=== PATIENT | female | born 1945 | race Caucasian/White ===

== ENCOUNTER 2016-11-26 11:26 | Inpatient (IN) | payer MEDICARE ==
[2016-11-26] MEDS ORDERED: SODIUM CHLORIDE 0.9% 1,000 ML IV STA (13:25)
[2016-11-26] MEDS ORDERED: ONDANSETRON 4 MG/2 ML VIAL IVP STA ×2 (13:25→14:49)
[2016-11-26] MEDS ORDERED: HYDROmorphone 1 MG/ML 1 ML SYRINGE IVP STA (13:30)
[2016-11-26 14:08] LABS: Glucose 109 mg/dL (74-99)
[2016-11-26 14:09] LABS: ALT 22 U/L (9-52); AST 60 U/L (14-36); Alkaline Phosphatase 349 U/L (38-126); Amylase 33 U/L (30-110); Anion Gap 10 mmol/L; Blood Urea Nitrogen 11 mg/dL (7-17); Calcium 10.1 mg/dL (8.4-10.2); Carbon Dioxide 24 mmol/L (22-30); Chloride 100 mmol/L (98-107); Non-African American GFR(MDRD) >60 (>60 ml/min/1.73 sqM); Potassium 4.1 mmol/L (3.5-5.1); Sodium 134 mmol/L (137-145); Total Bilirubin 0.7 mg/dL (0.2-1.3); Total Protein 7.3 g/dL (6.3-8.2)
[2016-11-26 14:12] LABS: Basophils # (A) 0.1 k/uL (0-0.2); Basophils % (A) 1 %; CH 21.2; CHCM 27.6; Eosinophils # (A) 0.2 k/uL (0-0.7); Eosinophils % (A) 2 %; HCT 24.7 % (34.0-46.0); HDW 4.17; Hypochromasia Marked; Luc # (Auto) 0.35; Luc % (Auto) 3; Lymphocytes # (A) 0.7 k/uL (1.0-4.8); Lymphocytes % (A) 6 %; MCH 21.7 pg (25.0-35.0); MCHC 28.3 g/dL (31.0-37.0); MCV 76.8 fL (80.0-100.0); Mean Platelet Volume 7.6; Microcytosis Slight; Monocytes # (A) 0.9 k/uL (0-1.0); Monocytes % (A) 8 %; Neutrophils # (A) 8.7 k/uL (1.3-7.7); Neutrophils % (A) 80 %; Poikilocytosis Moderate; RBC 3.21 m/uL (3.80-5.40); RDW 15.5 % (11.5-15.5); WBC 10.9 k/uL (3.8-10.6); WBC (Perox) 10.44
--- NOTE | 2016-11-26 14:15 | XR ---
EXAMINATION TYPE: XR abdomen 2V DATE OF EXAM: 11/26/2016 2:10 PM COMPARISON: NONE HISTORY: Pain TECHNIQUE: Single supine KUB image of the abdomen is obtained FINDINGS: Small bowel demonstrates no evidence for dilatation or air fluid levels. Gas and fecal material is seen in non-distended colon. No convincing evidence for pneumoperitoneum. No unusual calcifications. The lung bases are clear. Small fixed hiatal hernia. The osseous structures are intact. IMPRESSION: 1. Overall nonobstructive bowel gas pattern.
--- NOTE | 2016-11-26 14:17 | XR ---
EXAM TYPE: LUMBAR SPINE X RAY SERIES COMPARISON: NONE HISTORY: Chronic back pain TECHNIQUE: 3 views are submitted. FINDINGS: Alignment is anatomic. The pedicles are intact. The transverse processes are intact. There is no s pondylolysis or spondylolisthesis. Curvature of the spine with compression deformity of L3. Patholog ic fracture suggested. Grade 1 anterolisthesis L4 and L5 with severe degenerative disc disease and fa cet arthropathy. Moderate degenerative disc disease remaining levels. Report called to emergency room . IMPRESSION: 1. Mild endplate compression fracture L3 which has a abnormal appearance suggestive of a pathologic f racture. Recommend follow-up MRI or CT scan. 2. Severe degenerative disc disease and facet arthropathy with grade 1 anterolisthesis L4 on L5.
[2016-11-26 14:33] LABS: Manual Review Performed
[2016-11-26 14:34] LABS: Polychromasia Present; Stomatocytes Present
--- NOTE | 2016-11-26 14:57 | ED ---
General Adult HPI - General Chief complaint: Back Pain/Injury Stated complaint: back pain,dehydration Time Seen by Provider: 11/26/16 13:15 Source: patient, RN notes reviewed Mode of arrival: wheelchair Limitations: physical limitation - History of Present Illness Initial comments: 71-year-old female presents to the emergency department with a chief complaint of feeling weak. Patient states she's been weak for the last 4 so. Patient states this pain for the past month or so. Patient states that she's not been drinking as much because she has a hard time getting up and moving around with this. Patient states that she's been to the chiropractor but he does not need making her symptoms better. He states that she fell today and she hit her head. Patient states that she did not lose consciousness. Patient states she was concerned due to her continued weakness and not feeling well so she thought that she should be evaluated. Patient admits to history of anemia with iron everything seemed to be okay. Patient denies any blood in stool. Patient denies any recent fever, chills, shortness of breath, chest pain, back pain, abdominal pain, nausea vomiting, numbness or tingling, dysuria or hematuria, constipation or diarrhea, visual changes, or any other current symptoms. - Related Data Home Medications Medication Instructions Recorded Confirmed ALPRAZolam [Xanax] 0.5 mg PO TID PRN 11/26/16 11/26/16 Ibuprofen [Motrin] 800 mg PO TID PRN 11/26/16 11/26/16 Nadolol [Corgard] 40 mg PO DAILY 11/26/16 11/26/16 Omeprazole [PriLOSEC] 20 mg PO DAILY 11/26/16 11/26/16 Triamterene/Hydrochlorothiazid 1 cap PO DAILY 11/26/16 11/26/16 [Dyazide 37.5-25 Capsule] Allergies Allergy/AdvReac Type Severity Reaction Status Date / Time albuterol AdvReac Rapid Verified 11/26/16 14:33 Heart Rate prochlorperazine AdvReac Rapid Verified 11/26/16 14:33 [From Compazine] Heart Rate Review of Systems ROS Statement: Those systems with pertinent positive or pertinent negative responses have been documented in the HPI. ROS Other: All systems not noted in ROS Statement are negative. Past Medical History Past Medical History: Hypertension Additional Past Medical History / Comment(s): sciatica, back pain History of Any Multi-Drug Resistant Organisms: None Reported Past Surgical History: Adenoidectomy, Appendectomy, Section, Tonsillectomy Past Psychological History: No Psychological Hx Reported Smoking Status: Never smoker Past Alcohol Use History: Rare Past Drug Use History: None Reported General Exam - General Exam Comments Initial Comments: General: The patient is awake and alert, in no distress, and does not appear acutely ill. Eye: Pupils are equal, round and reactive to light, extra-ocular movements are intact; there is normal conjunctiva bilaterally. No signs of icterus. Ears, nose, mouth and throat: There are moist mucous membranes and no oral lesions. Neck: The neck is supple, there is no tenderness. Cardiovascular: There is a regular rate and rhythm. No murmur, rub or gallop is appreciated. Respiratory: Lungs are clear to auscultation, respirations are non-labored, breath sounds are equal. No wheezes, stridor, rales, or rhonchi. Gastrointestinal: Soft, non-distended, nontender abdomen without masses or organomegaly noted. There is no rebound or guarding present. No CVA tenderness. Bowel sounds are unremarkable. Back: There is tenderness to palpation in the midline of the upper lumbar spine. There is no obvious deformity. No rashes noted. Musculoskeletal: Normal ROM, no tenderness, There is no pedal edema. There is no calf tenderness or swelling. Sensation intact. Pulses equal bilaterally 2+. Neurological: CN II-XII intact, There are no obvious motor or sensory deficits. Coordination appears grossly intact. Speech is normal. Skin: Skin is warm and dry and no rashes or lesions are noted. Psychiatric: Cooperative, appropriate mood & affect, normal judgment. Limitations: physical limitation Course Vital Signs 11/26/16 11/26/16 11:30 14:57 Temperature 98.2 F Pulse Rate 79 75 Respiratory 20 18 Rate Blood Pressure 128/63 139/75 O2 Sat by Pulse 98 97 Oximetry Medical Decision Making - Medical Decision Making 71-year-old female presents for back pain and weakness. At this time here in the emergency room the patient is found to be anemic with a hemoglobin of 7 and is having lightheadedness and weakness. We did order transfusion for the patient. At this time x-ray was done on the patient's back but also does show an L3 fracture that is most likely pathologic the patient is also found to have lesions on the liver. At this time we will admit the patient for further evaluation. She has had some nausea vomiting here. We did send an occult blood at this time that we are pending results. This time she will be admitted to the floor for further evaluation. - Lab Data Result diagrams: 11/26/16 13:46 11/26/16 13:46 Lab Results 11/26/16 11/26/16 11/26/16 Range/Units 13:46 13:46 14:20 WBC 10.9 H (3.8-10.6) k/uL RBC 3.21 L (3.80-5.40) m/uL Hgb 7.0 L* (11.4-16.0) gm/dL Hct 24.7 L (34.0-46.0) % MCV 76.8 L (80.0-100.0) fL MCH 21.7 L (25.0-35.0) pg MCHC 28.3 L (31.0-37.0) g/dL RDW 15.5 (11.5-15.5) % Plt Count 500 H (150-450) k/uL Neutrophils % 80 % Lymphocytes % 6 % Monocytes % 8 % Eosinophils % 2 % Basophils % 1 % Neutrophils # 8.7 H (1.3-7.7) k/uL Lymphocytes # 0.7 L (1.0-4.8) k/uL Monocytes # 0.9 (0-1.0) k/uL Eosinophils # 0.2 (0-0.7) k/uL Basophils # 0.1 (0-0.2) k/uL Manual Slide Review Performed Polychromasia Present Hypochromasia Marked Poikilocytosis Moderate Microcytosis Slight Stomatocytes Present Sodium 134 L (137-145) mmol/L Potassium 4.1 (3.5-5.1) mmol/L Chloride 100 (98-107) mmol/L Carbon Dioxide 24 (22-30) mmol/L Anion Gap 10 mmol/L BUN 11 (7-17) mg/dL Creatinine 0.49 L (0.52-1.04) mg/dL Est GFR (MDRD) Af Amer >60 (>60 ml/min/1.73 sqM) Est GFR (MDRD) Non-Af >60 (>60 ml/min/1.73 sqM) Glucose 109 H (74-99) mg/dL Calcium 10.1 (8.4-10.2) mg/dL Total Bilirubin 0.7 (0.2-1.3) mg/dL AST 60 H (14-36) U/L ALT 22 (9-52) U/L Alkaline Phosphatase 349 H (38-126) U/L Total Protein 7.3 (6.3-8.2) g/dL Albumin 4.0 (3.5-5.0) g/dL Amylase 33 (30-110) U/L Lipase 31 (23-300) U/L Blood Type O Negative Blood Type Recheck No Antibody Screen NEGATIVE Crossmatch See Detail Spec Expiration Date 11/29/2016 - 2320 - Radiology Data Radiology results: report reviewed, image reviewed Disposition Clinical Impression: Hyponatremia, Anemia, L3 vertebral fracture, Hepatic lesion, Weakness, Nausea & vomiting, Lytic bone lesions on xray Disposition: ADMITTED IP TO THIS [facility] Condition: Stable Referrals: Anthony Rodriguez MD [Primary Care Provider] - 1-2 days Time of Disposition: 15:57 Decision Date: 11/26/16 Decision Time: 15:57
--- NOTE | 2016-11-26 15:33 | CT ---
EXAMINATION TYPE: CT brain daily page con DATE OF EXAM: 11/26/2016 3:21 PM COMPARISON: NONE HISTORY: SANDOVAL and neck pain after fall injury. CT DLP: [address] of the brain was performed. The ventricles, basal cisterns and sulci overlying the cerebral convexities demonstrate mild enlargem ent. There is no evidence for intracranial hemorrhage or sulcal effacement. There is decreased attenuatio n about the periventricular white matter and deep white matter of both cerebral hemispheres, compatib le with chronic small vessel ischemia. No mass effects are seen. If symptoms persist consider MRI. Osseous calvarium is intact. IMPRESSION: 1. Age related atrophic and chronic small vessel ischemic change without acute intracranial process seen at this time. CT Cervical Spine: Unenhanced CT of the cervical spine was performed with bone and soft tissue window settings submitted . Coronal and sagittal reconstruction is obtained. There is normal alignment and prevertebral soft tissues. No evidence for acute cervical fracture . Moderate to severe Scattered degenerative disc disease and spondylosis. Lytic lesion involving the ri ght transverse process of C2. Biapical scarring. IMPRESSION: 1. No evidence for acute fracture or subluxation of the cervical spine. 2. Lytic lesion involving the right transverse process of C2. Bone scan correlation advised.
--- NOTE | 2016-11-26 15:44 | CT ---
EXAMINATION TYPE: CT lumbar spine wo con DATE OF EXAM: 11/26/2016 3:21 PM COMPARISON: NONE HISTORY: Lower back pain after fall injury. CT DLP: 956 mGycm CONTRAST: Unenhanced CT of the lumbar spine is performed. Unenhanced CT of the lumbar spine was performed. Bone and soft tissue window settings are submitted as well as coronal and sagittal reconstructions. There are innumerable hepatic metastatic lesions noted. L1-L2: Heterogeneity is noted of the L1 vertebral segment. Underlying developing lesion is difficult to exclude. Vacuum disc noted with posterior disc bulge. No herniation or stenosis. No evidence for fracture. L2-L3: No fracture seen. Vacuum disc noted. Posterior disc bulge without central stenosis. L3-L4: Pathologic compression fracture with loss of height superior endplate. There is epidural soft tissue measuring 4.4 mm. No bony retropulsion at this time. There is also paraspinal soft tissue whic h may in part reflect hematoma or an additional lesion. L4-L5: Severe vacuum disc change. Grade 1 anterolisthesis L4 and L5 measuring 7.7 mm . There is a mo derate central stenosis. Disc bulging seen. No fracture identified. L5-S1: Vacuum discs. Posterior disc bulge. No herniation or central stenosis. No obvious lesions seen . Nodular thickening left adrenal gland. Sacral Tarlov cyst. IMPRESSION: 1. Metastatic disease to the liver. 2. pathologic L3 compression fracture with epidural soft tissue as well as paraspinal soft tissue. H eterogeneity of L1 may reflect additional lesion.
[2016-11-26] MEDS ORDERED: METOCLOPRAMIDE 5 MG/ML 2 ML VIAL IVP STA (15:54)
[2016-11-26] MEDS ORDERED: IBUPROFEN 400 MG TAB PO PRN (15:57)
[2016-11-26] MEDS ORDERED: MAGNESIUM HYDROXIDE 2,400 MG/10 ML CUP PO PRN (15:57)
[2016-11-26] MEDS ORDERED: NALOXONE 0.4 MG/ML 1 ML VIAL IV PRN (15:57)
[2016-11-26] MEDS ORDERED: HYDROcodone/APAP 5-325MG 1 EACH TAB PO PRN (15:57)
[2016-11-26 16:14] LABS: INR 1.1 (<1.1); Partial Thromboplastin Time 23.4 sec (22.0-30.0); Prothrombin Time 11.3 sec (9.0-12.0)
[2016-11-26] MEDS: SODIUM CHLORIDE 0.9% 1,000 ML IV SCH (19:40)
[2016-11-26] MEDS: FAMOTIDINE 20 MG TAB PO SCH (21:33)
[2016-11-26] MEDS: ACETAMINOPHEN TAB 325 MG TAB PO PRN (22:16)
[2016-11-27] MEDS: ALPRAZolam 0.5 MG TAB PO PRN ×2 (00:51→12:23)
[2016-11-27] MEDS: SODIUM CHLORIDE 0.9% 1,000 ML IV SCH ×3 (02:39→17:03)
[2016-11-27] MEDS ORDERED: HYDROmorphone 1 MG/ML 1 ML SYRINGE IVP PRN (06:03)
[2016-11-27 07:30] LABS: Basophils % (A) 0 %; CH 21.9; Eosinophils # (A) 0.1 k/uL (0-0.7); Eosinophils % (A) 1 %; HCT 23.5 % (34.0-46.0); HDW 4.56; Hypochromasia Marked; Luc # (Auto) 0.25; Luc % (Auto) 3; Lymphocytes # (A) 0.5 k/uL (1.0-4.8); Lymphocytes % (A) 6 %; MCH 22.2 pg (25.0-35.0); MCHC 28.3 g/dL (31.0-37.0); MCV 78.5 fL (80.0-100.0); Mean Platelet Volume 7.4; Monocytes # (A) 0.8 k/uL (0-1.0); Monocytes % (A) 9 %; Neutrophils # (A) 7.3 k/uL (1.3-7.7); Neutrophils % (A) 82 %; Poikilocytosis Moderate; RBC 2.99 m/uL (3.80-5.40); RDW 15.5 % (11.5-15.5); WBC 8.9 k/uL (3.8-10.6); WBC (Perox) 9.27
[2016-11-27 07:38] LABS: HGB 6.6 gm/dL (11.4-16.0)
[2016-11-27 07:48] LABS: ALT 19 U/L (9-52); AST 49 U/L (14-36); Alkaline Phosphatase 276 U/L (38-126); Anion Gap 8 mmol/L; Blood Urea Nitrogen 7 mg/dL (7-17); Calcium 9.3 mg/dL (8.4-10.2); Carbon Dioxide 24 mmol/L (22-30); Chloride 106 mmol/L (98-107); Glucose 92 mg/dL (74-99); Non-African American GFR(MDRD) >60 (>60 ml/min/1.73 sqM); Potassium 3.7 mmol/L (3.5-5.1); Sodium 138 mmol/L (137-145); Total Bilirubin 0.7 mg/dL (0.2-1.3)
[2016-11-27] MEDS: TRIAMTERENE-HCTZ 37.5-25MG 1 EACH CAP PO SCH (08:43)
[2016-11-27] MEDS: NADOLOL 20 MG TAB PO SCH (08:43)
[2016-11-27] MEDS: PANTOPRAZOLE 40 MG TABLET PO SCH (08:43)
[2016-11-27] MEDS: FAMOTIDINE 20 MG TAB PO SCH (08:43)
[2016-11-27] MEDS: ONDANSETRON 4 MG/2 ML VIAL IVP PRN ×2 (08:49→15:03)
[2016-11-27] MEDS ORDERED: RX INFO: IV CONTRAST WAS GIVEN 1 EACH MISC MISCELLANE PRN (10:42)
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
[2016-11-27 11:22] LABS: Basophils % (A) 0 %; CH 22.1; CHCM 28.4; Eosinophils % (A) 0 %; HCT 24.7 % (34.0-46.0); HDW 4.69; HGB 7.1 gm/dL (11.4-16.0); Hypochromasia Marked; Luc % (Auto) 2; Lymphocytes # (A) 0.4 k/uL (1.0-4.8); Lymphocytes % (A) 4 %; MCH 22.5 pg (25.0-35.0); MCHC 28.8 g/dL (31.0-37.0); MCV 78.1 fL (80.0-100.0); Mean Platelet Volume 6.4; Monocytes # (A) 0.6 k/uL (0-1.0); Monocytes % (A) 7 %; Neutrophils # (A) 8.3 k/uL (1.3-7.7); Neutrophils % (A) 86 %; Poikilocytosis Marked; RBC 3.17 m/uL (3.80-5.40); RDW 15.3 % (11.5-15.5); WBC 9.6 k/uL (3.8-10.6); WBC (Perox) 10.21
[2016-11-27] MEDS: ACETAMINOPHEN TAB 325 MG TAB PO PRN (11:54)
[2016-11-27 11:55] LABS: % Iron Saturation 4.4 % (20-50)
[2016-11-27] MEDS ORDERED: FUROSEMIDE 10 MG/ML 2 ML VIAL IV ONE (14:23)
[2016-11-27] MEDS: IOHEXOL 350 MG/ML 25 ML BOTTLE (ORAL USE) PO PRN ×2 (14:55→16:23)
[2016-11-27] MEDS: DEXAMETHASONE SOD PHOSPHATE 4 MG/ML 1 ML VIAL IV SCH (15:03)
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
[2016-11-27] MEDS ORDERED: LORazepam 2 MG/ML SYRINGE IV STA (17:14)
[2016-11-27] MEDS ORDERED: LORazepam 2 MG/ML SYRINGE ONE (17:16)
--- NOTE | 2016-11-27 17:56 | CT ---
EXAMINATION TYPE: CT ChestAbdPelvis w con DATE OF EXAM: 11/27/2016 5:29 PM COMPARISON: NONE HISTORY: Generalized abdominal and back pain CT DLP: 1754.8 mGycm Automated exposure control for dose reduction was used. CONTRAST: CT scan of the chest, abdomen and pelvis is performed with Oral Contrast and with IV Contrast, patien t injected with 100 mL of Omnipaque 300. FINDINGS: The lungs are clear of infiltrate. There are small bilateral pleural effusions.. There is a large hia dwain hernia. I see no mediastinal adenopathy. There are no hilar masses. There is no pericardial effus ion. There are numerous hypodense irregular masses in the liver. These measure up to 7 cm. Bile ducts are not dilated. Gallbladder appears normal. I see no pancreatic mass. The spleen appears normal. There is no adrenal mass. Kidneys show satisfactory contrast opacification. There is no hydronephrosi s. There is no retroperitoneal adenopathy. There is no ascites. Bladder distends smoothly. There is r etained fecal material in the rectum. I see no intestinal wall thickening. There are a few diverticul a in the colon. There is no sign of diverticulitis. Appendix is not definitely seen. There are a few cervical lymph nodes that measure up to 1 cm. There is incomplete contrast filling of the tip of the cecum. There is mild compression of the superior endplate of L3 vertebra with patchy sclerosis and lucency. This could relate to tumor. There is mild anterior subluxation of L4 in relation L5. There is epidura l density at the L3 fracture impinging on the spinal canal. There is some wall thickening involving the gastric fundus within the hiatal hernia. IMPRESSION: Extensive abnormal density in the liver consistent with metastatic disease. Small bilater al pleural effusions. Large hiatal hernia. Mild compression fracture of L3 which is probably pathologic and tumor should be considered. Possible mass lesion involving the ileocecal valve and the tip of the cecum. Colonoscopy is recommend ed for further evaluation if clinically indicated. Possible mass lesion with wall thickening involving the posterior gastric fundus within the hiatal he rnia. Endoscopy would be useful for further evaluation if clinically indicated. Degenerative first degree L4-5 spondylolisthesis with moderate lumbar spinal stenosis.
--- NOTE | 2016-11-27 18:25 | MR ---
EXAMINATION TYPE: MR lumbar spine wo/w con DATE OF EXAM: 11/27/2016 COMPARISON: 11/27/2016 CT HISTORY: Abnormal x-ray possible metastasis Contrast: 15 mL MultiHance TECHNIQUE: T1 and T2 axial and sagittal images of the lumbar spine are submitted. FINDINGS: There is abnormal numerous masses within the liver compatible with metastases. Single lesio n within the right kidney is indeterminate. At T11-T12 there is a sagittal disc bulge but no spinal cord contact. Area not included on axial imag es of lumbar spine. At T12-L1 there is diffuse abnormal marrow signal involving T12 compatible with metastases. Abnormal signal seen posteriorly within the spinous processes likely related to T12 compatible with metastases . At L1-2 there is diffuse abnormal signal within the marrow compatible with metastases. No disc hernia tion. Facet arthropathy noted. Neural foramina patent. At L2-3 there is abnormal marrow signal within L2 compatible with metastasis. Facet arthropathy seen. Neural foramina patent. No Canal stenosis. At L3-4 there is there is diffuse abnormal signal involving the vertebral body of L3 extending into t he pedicles. There is a pathologic compression fracture or destructive change of the vertebral body. There is enhancement along the paraspinal line and epidural space. Findings compatible with metastase s. There is mild effacement of the thecal sac and mild canal stenosis. At L4-5 there is a grade 1 anterolisthesis with severe degenerative change. Severe facet arthropathy and ligamentum flavum hypertrophy results in severe canal stenosis and bilateral foraminal encroachme nt. Bony metastases noted. At L5-S1 there is facet arthropathy but no disc herniation or canal stenosis. Neural foramina patent. 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 IMPRESSION: 1. At L3-4 there is there is diffuse abnormal signal involving the vertebral body of L3 extending int o the pedicles. There is a pathologic compression fracture or destructive change of the vertebral bod y. There is enhancement along the paraspinal line and epidural space. Epidural enhancement and signal as well as bilateral paraspinal signal compatible with metastases. There is mild effacement of the t hecal sac and mild canal stenosis. 2. Grade 1 anterolisthesis of L4 and L5 with facet arthropathy and ligamentum flavum hypertrophy resu lts in severe canal stenosis and bilateral foraminal encroachment. 3. Multilevel metastatic disease to the lumbar spine and sacrum. 4. Diffuse hepatic metastases.
[2016-11-27] MEDS: DOCUSATE 100 MG CAP PO SCH (20:51)
[2016-11-27] MEDS: HYDROcodone/APAP 10-325MG 1 EACH TAB PO PRN (20:55)
[2016-11-28] MEDS: DEXAMETHASONE SOD PHOSPHATE 4 MG/ML 1 ML VIAL IV SCH ×4 (00:34→23:55)
[2016-11-28] MEDS: HYDROcodone/APAP 10-325MG 1 EACH TAB PO PRN ×4 (01:20→21:47)
[2016-11-28] MEDS: SODIUM CHLORIDE 0.9% 1,000 ML IV SCH ×2 (03:51→08:47)
[2016-11-28 07:13] LABS: Anisocytosis Slight; Basophils % (A) 0 %; CH 23.3; CHCM 29.4; Eosinophils % (A) 0 %; HCT 28.9 % (34.0-46.0); HDW 5.05; Hypochromasia Marked; Luc % (Auto) 1; Lymphocytes # (A) 0.5 k/uL (1.0-4.8); Lymphocytes % (A) 6 %; MCH 23.5 pg (25.0-35.0); MCHC 29.6 g/dL (31.0-37.0); MCV 79.2 fL (80.0-100.0); Mean Platelet Volume 6.4; Monocytes # (A) 0.4 k/uL (0-1.0); Monocytes % (A) 5 %; Neutrophils # (A) 7.7 k/uL (1.3-7.7); Neutrophils % (A) 88 %; Poikilocytosis Marked; RBC 3.64 m/uL (3.80-5.40); RDW 16.1 % (11.5-15.5); WBC 8.7 k/uL (3.8-10.6); WBC (Perox) 9.68
[2016-11-28 07:32] LABS: HGB 8.6 gm/dL (11.4-16.0)
[2016-11-28 07:51] LABS: ALT 29 U/L (9-52); AST 92 U/L (14-36); Alkaline Phosphatase 301 U/L (38-126); Anion Gap 11 mmol/L; Blood Urea Nitrogen 6 mg/dL (7-17); Calcium 9.6 mg/dL (8.4-10.2); Carbon Dioxide 25 mmol/L (22-30); Chloride 102 mmol/L (98-107); Glucose 116 mg/dL (74-99); Non-African American GFR(MDRD) >60 (>60 ml/min/1.73 sqM); Potassium 3.8 mmol/L (3.5-5.1); Sodium 138 mmol/L (137-145); Total Bilirubin 0.8 mg/dL (0.2-1.3); Total Protein 6.4 g/dL (6.3-8.2)
[2016-11-28] MEDS: PANTOPRAZOLE 40 MG TABLET PO SCH (08:37)
[2016-11-28] MEDS: DOCUSATE 100 MG CAP PO SCH ×2 (08:37→21:23)
[2016-11-28] MEDS: TRIAMTERENE-HCTZ 37.5-25MG 1 EACH CAP PO SCH (08:37)
[2016-11-28] MEDS: NADOLOL 20 MG TAB PO SCH (08:37)
[2016-11-28] MEDS: ALPRAZolam 0.5 MG TAB PO PRN ×3 (08:41→23:54)
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
--- NOTE | 2016-11-28 11:45 | P.PN ---
Subjective Patient is doing fairly well today. Her pain is well-controlled. No event last night. Objective - Vital Signs Vital signs: Vital Signs Temp 98.1 F 11/28/16 07:00 Pulse 75 11/28/16 10:10 Resp 16 11/28/16 09:00 BP 152/72 11/28/16 10:10 Pulse Ox 95 11/28/16 07:00 Intake & Output 11/27/16 11/28/16 11/28/16 18:59 06:59 18:59 Intake Total 3650 Balance 3650 Weight 88.451 kg 88.451 kg Intake: IV 2160 Sodium Chloride 0.9% 1, 2160 000 ml @ 120 mls/hr IV . Q8H20M [facility] Rx#:[id number] Oral 1180 Blood Product 310 Rc As-1 Unit 310 [id number] Other: Voiding Method Toilet Toilet Bedpan # Voids 2 3 - Exam General: The patient is awake and alert, in no distress Eye: there is normal conjunctiva bilaterally. Neck: The neck is supple, there is no JVD. Cardiovascular: Normal S1-S2, no S3-S4, no murmurs. Respiratory: Lungs clear to auscultation bilaterally Gastrointestinal: Abdomen is soft, nontender Musculoskeletal: There is no pedal edema. Neurological:. Speech is normal. Skin: Skin is warm and dry - Labs CBC & Chem 7: 11/28/16 06:46 11/28/16 06:46 Labs: Abnormal Lab Results - Last 24 Hours (Table) 11/26/16 11/27/16 11/27/16 Range/Units 14:20 07:03 11:08 RBC (3.80-5.40) m/uL Hgb (11.4-16.0) gm/dL Hct (34.0-46.0) % MCV (80.0-100.0) fL MCH (25.0-35.0) pg MCHC (31.0-37.0) g/dL RDW (11.5-15.5) % Lymphocytes # (1.0-4.8) k/uL BUN (7-17) mg/dL Creatinine (0.52-1.04) mg/dL Glucose (74-99) mg/dL Iron 14 L (37-170) ug/dL % Saturation 4.4 L (20-50) % AST (14-36) U/L Alkaline Phosphatase (38-126) U/L Albumin (3.5-5.0) g/dL RBC Folate 832 H (280 - 791) ng/mL Crossmatch See Detail 11/28/16 11/28/16 Range/Units 06:46 06:46 RBC 3.64 L (3.80-5.40) m/uL Hgb 8.6 L D (11.4-16.0) gm/dL Hct 28.9 L (34.0-46.0) % MCV 79.2 L (80.0-100.0) fL MCH 23.5 L (25.0-35.0) pg MCHC 29.6 L (31.0-37.0) g/dL RDW 16.1 H (11.5-15.5) % Lymphocytes # 0.5 L (1.0-4.8) k/uL BUN 6 L (7-17) mg/dL Creatinine 0.48 L (0.52-1.04) mg/dL Glucose 116 H (74-99) mg/dL Iron (37-170) ug/dL % Saturation (20-50) % AST 92 H (14-36) U/L Alkaline Phosphatase 301 H (38-126) U/L Albumin 3.3 L (3.5-5.0) g/dL RBC Folate (280 - 791) ng/mL Crossmatch Microbiology - Last 24 Hours (Table) 11/26/16 16:35 Urine Culture - Preliminary Urine,Voided Assessment and Plan Plan: 1. Metastatic disease to the bone of unknown source 2. Acute on chronic back pain involving the cervical and lumbar spine with evidence of pathologic compression fracture of L3 and diffuse metastatic disease to the spine 3. Metastatic liver disease with mild transaminitis 4. Essential hypertension: Blood pressure not well controlled we'll continue to monitor closely 5. Acute on chronic anemia most likely of chronic disease. Patient received 1 unit of blood transfusion. Would monitor CBC daily This is a 71-year-old female who presented to the hospital initially with back pain and was found to have metastatic disease involving the cervical and lumbar spine as well as her liver. Underlying malignancy is unknown. Computed tomography scan of the chest abdomen and pelvis showed no obvious source. Patient is scheduled for CT-guided biopsy of the liver for pathology. She was seen and evaluated by spine surgery and recommending pain control and back brace. She was also seen by oncology. We will continue current regimen otherwise. Appreciate information resource consultant's recommendations.
[2016-11-28] MEDS: HEPARIN SODIUM,PORCINE 5,000 UNIT/ML 1 ML VIAL SQ SCH (21:47)
[2016-11-29] MEDS: HYDROcodone/APAP 10-325MG 1 EACH TAB PO PRN ×6 (02:07→23:48)
[2016-11-29 07:25] LABS: Anisocytosis Slight; Basophils % (A) 0 %; CH 22.9; CHCM 28.7; Eosinophils % (A) 0 %; HCT 30.4 % (34.0-46.0); HDW 4.77; HGB 8.8 gm/dL (11.4-16.0); Hypochromasia Marked; Luc # (Auto) 0.31; Luc % (Auto) 2; Lymphocytes # (A) 0.5 k/uL (1.0-4.8); Lymphocytes % (A) 3 %; MCHC 28.7 g/dL (31.0-37.0); Mean Platelet Volume 7.1; Monocytes # (A) 1.2 k/uL (0-1.0); Monocytes % (A) 8 %; Neutrophils # (A) 12.9 k/uL (1.3-7.7); Neutrophils % (A) 87 %; Poikilocytosis Marked; RBC 3.81 m/uL (3.80-5.40); RDW 16.5 % (11.5-15.5); WBC 14.9 k/uL (3.8-10.6); WBC (Perox) 15.43
[2016-11-29 07:38] LABS: ALT 39 U/L (9-52); AST 119 U/L (14-36); Alkaline Phosphatase 279 U/L (38-126); Anion Gap 8 mmol/L; Blood Urea Nitrogen 11 mg/dL (7-17); Calcium 9.7 mg/dL (8.4-10.2); Carbon Dioxide 28 mmol/L (22-30); Chloride 100 mmol/L (98-107); Glucose 113 mg/dL (74-99); Non-African American GFR(MDRD) >60 (>60 ml/min/1.73 sqM); Potassium 4.3 mmol/L (3.5-5.1); Sodium 136 mmol/L (137-145); Total Bilirubin 0.8 mg/dL (0.2-1.3); Total Protein 6.6 g/dL (6.3-8.2)
[2016-11-29] MEDS: NADOLOL 20 MG TAB PO SCH (08:47)
[2016-11-29] MEDS: DOCUSATE 100 MG CAP PO SCH ×2 (08:47→21:24)
[2016-11-29] MEDS: TRIAMTERENE-HCTZ 37.5-25MG 1 EACH CAP PO SCH (08:47)
[2016-11-29] MEDS: HEPARIN SODIUM,PORCINE 5,000 UNIT/ML 1 ML VIAL SQ SCH ×2 (08:47→21:24)
[2016-11-29] MEDS: DEXAMETHASONE SOD PHOSPHATE 4 MG/ML 1 ML VIAL IV SCH ×3 (08:48→23:50)
[2016-11-29] MEDS: PANTOPRAZOLE 40 MG TABLET PO SCH (08:48)
[2016-11-29] MEDS: ALPRAZolam 0.5 MG TAB PO PRN ×2 (10:47→20:00)
--- NOTE | 2016-11-29 12:04 | P.PN ---
Subjective Principal diagnosis: L3 pathologic compression fracture deformity Patient is a very pleasant 71-year-old female who is seen and examined at bedside for follow-up evaluation for her acute L3 compression fracture deformity. She is seen with her daughter present. She is currently being seen and examined by hematology oncology for further evaluation of multiple liver masses with possible metastatic disease to the lumbar spine. She is scheduled to undergo hepatic biopsy this coming 12/01/2016. Since being seen and examined yesterday, patient states she slept on her left side and since that time she has had some increased low back pain and left lower extremity radiculopathy. She is known to have a spondylolisthesis at L4-5. She has pain that radiates from the left lateral lumbar spine, down the left posterior lateral thigh, over the left knee, and on anterior lower extremity. She states she has had difficulty with this radicular pattern previously. She does admit to some generalized tingling of the bilateral toes that goes up towards her calves. She states she was not previously diagnosed with diabetes that she is aware of. She has remained lying in bed most the time. She was able to stand at the bedside with assistance today. Objective - Vital Signs Vital signs: Vital Signs Temp 98.1 F 11/29/16 07:00 Pulse 69 11/29/16 07:00 Resp 16 11/29/16 07:00 BP 137/65 11/29/16 07:00 Pulse Ox 96 11/29/16 07:00 Intake & Output 11/28/16 11/29/16 11/29/16 18:59 06:59 18:59 Intake Total 600 600 Balance 600 600 Intake: Oral 600 600 Other: Voiding Method Bedpan Bedpan Bedpan # Voids 2 1 - Exam Physical Exam: Patient is awake, alert, and oriented 3 Vital signs stable Good chest excursion with deep inspiration and expiration Abdomen soft nontender No signs or symptoms of DVT; no calf pain Lower extremity strength 5/5 throughout range of motion Extensor hallucis longus, plantarflexion, and dorsiflexion positive sustained bilateral lower extremities Negative straight leg test bilaterally No pain with internal and external rotation of hips bilaterally - Labs CBC & Chem 7: 11/29/16 06:54 11/29/16 06:54 Labs: Abnormal Lab Results - Last 24 Hours (Table) 11/29/16 11/29/16 Range/Units 06:54 06:54 WBC 14.9 H (3.8-10.6) k/uL Hgb 8.8 L (11.4-16.0) gm/dL Hct 30.4 L (34.0-46.0) % MCH 23.0 L (25.0-35.0) pg MCHC 28.7 L (31.0-37.0) g/dL RDW 16.5 H (11.5-15.5) % Neutrophils # 12.9 H (1.3-7.7) k/uL Lymphocytes # 0.5 L (1.0-4.8) k/uL Monocytes # 1.2 H (0-1.0) k/uL Sodium 136 L (137-145) mmol/L Creatinine 0.40 L (0.52-1.04) mg/dL Glucose 113 H (74-99) mg/dL AST 119 H (14-36) U/L Alkaline Phosphatase 279 H (38-126) U/L Albumin 3.4 L (3.5-5.0) g/dL Microbiology - Last 24 Hours (Table) 11/26/16 16:35 Urine Culture - Final Urine,Voided Assessment and Plan (1) Liver masses Status: Acute (2) Spondylolisthesis, lumbar region Status: Acute (3) Lumbar spinal stenosis Status: Acute (4) Lumbar back pain with radiculopathy affecting left lower extremity Status: Acute (5) L3 vertebral fracture Status: Acute Plan: Pertinent studies: MRI of the lumbar spine with and without contrast: L3 pathologic compression fracture; some irregularities within the vertebral bodies throughout her lumbar spine with significant involvement of L3; L4-5 spondylolisthesis with spinal canal stenosis Assessment: Acute L3 pathologic compression fracture with no evidence of acute neurologic decline Multiple liver masses Possible metastatic disease at multiple vertebral bodies lumbar spine Low back pain Left lower extremity radiculopathy L4-5 spondylolisthesis with spinal stenosis Plan: 1. Jeanette are currently planning to continue with conservative care. An LSO brace has been delivered and fitted appropriately. We discussed she should wear this brace while ambulating, while doing activities, and while sitting at greater than 45. She does not have to wear this brace while lying in bed or while bathing. We discussed she would be a candidate for L3 kyphoplasty with biopsy if necessary. 2. Hematology oncology is continuing to follow the patient and are currently planning for hepatic biopsy on Wednesday. 3. Continue pain control 4. We will continue to follow patient 5. Patient has been discussed in detail with Dr. Juan Martin and he agrees with this plan Time with Patient: Greater than 30
--- NOTE | 2016-11-29 14:02 | P.PN ---
Subjective Patient is doing fairly well today. Her pain is well-controlled. No event last night. Objective - Vital Signs Vital signs: Vital Signs Temp 98.1 F 11/29/16 07:00 Pulse 69 11/29/16 07:00 Resp 16 11/29/16 07:00 BP 137/65 11/29/16 07:00 Pulse Ox 96 11/29/16 07:00 Intake & Output 11/28/16 11/29/16 11/29/16 18:59 06:59 18:59 Intake Total 600 600 360 Balance 600 600 360 Intake: Oral 600 600 360 Other: Voiding Method Bedpan Bedpan Bedpan # Voids 2 1 2 - Exam General: The patient is awake and alert, in no distress Eye: there is normal conjunctiva bilaterally. Neck: The neck is supple, there is no JVD. Cardiovascular: Normal S1-S2, no S3-S4, no murmurs. Respiratory: Lungs clear to auscultation bilaterally Gastrointestinal: Abdomen is soft, nontender Musculoskeletal: There is no pedal edema. Neurological:. Speech is normal. Skin: Skin is warm and dry - Labs CBC & Chem 7: 11/29/16 06:54 11/29/16 06:54 Labs: Abnormal Lab Results - Last 24 Hours (Table) 11/29/16 11/29/16 Range/Units 06:54 06:54 WBC 14.9 H (3.8-10.6) k/uL Hgb 8.8 L (11.4-16.0) gm/dL Hct 30.4 L (34.0-46.0) % MCH 23.0 L (25.0-35.0) pg MCHC 28.7 L (31.0-37.0) g/dL RDW 16.5 H (11.5-15.5) % Neutrophils # 12.9 H (1.3-7.7) k/uL Lymphocytes # 0.5 L (1.0-4.8) k/uL Monocytes # 1.2 H (0-1.0) k/uL Sodium 136 L (137-145) mmol/L Creatinine 0.40 L (0.52-1.04) mg/dL Glucose 113 H (74-99) mg/dL AST 119 H (14-36) U/L Alkaline Phosphatase 279 H (38-126) U/L Albumin 3.4 L (3.5-5.0) g/dL Microbiology - Last 24 Hours (Table) 11/26/16 16:35 Urine Culture - Final Urine,Voided Assessment and Plan Plan: 1. Metastatic disease to the bone of unknown source 2. Acute on chronic back pain involving the cervical and lumbar spine with evidence of pathologic compression fracture of L3 and diffuse metastatic disease to the spine 3. Metastatic liver disease with mild transaminitis 4. Essential hypertension: Blood pressure not well controlled we'll continue to monitor closely 5. Acute on chronic anemia most likely of chronic disease. Patient received 1 unit of blood transfusion. Would monitor CBC daily This is a 71-year-old female who presented to the hospital initially with back pain and was found to have metastatic disease involving the cervical and lumbar spine as well as her liver. Underlying malignancy is unknown. Computed tomography scan of the chest abdomen and pelvis showed no obvious source. Patient is scheduled for CT-guided biopsy of the liver for pathology. She was seen and evaluated by spine surgery and recommending pain control and back brace. She was also seen by oncology. We will continue current regimen otherwise. Appreciate consultant luxury and [employer]. vice president [employer] (ex )'s recommendations.
--- NOTE | 2016-11-29 18:15 | PN ---
DATE OF SERVICE: November 29, 2016. CHIEF COMPLAINT: Back pain. Alberta seen today as a follow-up. She continues to have back pain radiating across her shoulders. She is taking Shongaloo as needed with partial relief of her pain. No nausea or vomiting. She is constipated. No melena, hematochezia, hematochezia, hematuria, or hemoptysis. Her current medications include: 1. Tylenol 650 mg every 6 hours as needed. 2. Xanax 0.5 mg t.i.d. as needed. 3. Dexamethasone 4 mg IV push every 8 hours. 4. Colace as needed. 5. Heparin 5000 units subcu q.12h. 6. Shongaloo 10, 1 every 4 hours as needed. 7. Milk of magnesia as needed. 8. Corgard 40 mg daily. 9. Zofran 4 mg IV every 4 hours. 10. Protonix 40 mg twice a day. 11. Dyazide 1 mg p.o. daily. On physical examination, she is alert and oriented x3. She does not appear to be in acute distress at this time. Her vital signs are temperature 98.1, afebrile, pulse 69 and regular, respirations 16, blood pressure 139/65. HEENT: Normocephalic, atraumatic. No obvious icterus. NECK: Supple. No jugular venous distention. CHEST: Equal expansion bilaterally. LUNGS: Clear to auscultation. HEART: Regular rate and rhythm. ABDOMEN: Soft. She has hepatomegaly and tenderness in the right upper quadrant. She has some tenderness in the right lower quadrant as well. No obvious masses or ascites. EXTREMITIES: Reveal no edema. She is moving all extremities appropriately. LABORATORY DATA: WBC of 14.9, hemoglobin 8.8, hematocrit 30.4, platelets 403. Sodium 136, potassium 4.3, chloride 100, CO2 is 28, BUN 11, creatinine 0.4, calcium is 9.7. IMPRESSION: 1. Clinical and radiographic picture highly suggestive of metastatic disease to the liver and to her spine. She is neurologically stable at this time. I suspect this may represent gastrointestinal primary with her metastatic disease with her presentation with significant iron deficiency anemia and also she has had ongoing constipation prior to her hospitalization. 2. Back pain to anemia. This is in part related to significant iron deficiency and also anemia of chronic disease. This has improved after transfusion. 3. Back pain secondary to metastatic disease. RECOMMENDATIONS: 1. The patient is currently on Shongaloo with partial relief. I did recommend to change the pain medication maybe to try a stronger narcotic such as oxycodone. However, she is very reluctant to make any changes at this point in time. 2. Continue Decadron. 3. Awaiting scheduled liver biopsy for tissue diagnosis. 4. Monitor blood count. 5. If the liver biopsy was consistent with gastrointestinal primary, then she should have a gastroenterology work-up to determine if there is any ongoing bleeding or a partially obstructing lesion. The above was discussed with the patient and her family at bedside and I have answered all their questions. Thank you very much.
[2016-11-29 19:09] LABS: Appearance,Urine Clear (Clear); Bilirubin,Urine Negative (Negative); Glucose,Urine (UA) Negative (Negative); Ketones,Urine Negative (Negative); Leukocyte Esterase,Urine Negative (Negative); Nitrite,Urine Negative (Negative); PH, Urine 6.5 (5.0-8.0); Protein,Urine Negative (Negative); Specific Gravity,Urine 1.005 (1.001-1.035); UA Billing (MACRO vs. MICRO) CHEM; Urobilinogen,Urine <2.0 mg/dL (<2.0)
[2016-11-30] MEDS: HYDROcodone/APAP 10-325MG 1 EACH TAB PO PRN ×5 (04:51→22:42)
[2016-11-30 07:25] LABS: Anisocytosis Slight; Basophils % (A) 0 %; CH 22.7; CHCM 27.7; Eosinophils % (A) 0 %; HCT 31.5 % (34.0-46.0); HDW 4.38; Hypochromasia Marked; Luc # (Auto) 0.26; Luc % (Auto) 2; Lymphocytes # (A) 0.5 k/uL (1.0-4.8); Lymphocytes % (A) 3 %; MCH 23.4 pg (25.0-35.0); MCHC 28.6 g/dL (31.0-37.0); MCV 81.8 fL (80.0-100.0); Mean Platelet Volume 8.5; Monocytes # (A) 1.4 k/uL (0-1.0); Monocytes % (A) 10 %; Neutrophils # (A) 12.1 k/uL (1.3-7.7); Neutrophils % (A) 85 %; Poikilocytosis Moderate; RBC 3.86 m/uL (3.80-5.40); RDW 16.7 % (11.5-15.5); WBC 14.3 k/uL (3.8-10.6); WBC (Perox) 14.98
[2016-11-30] MEDS: ALPRAZolam 0.5 MG TAB PO PRN ×3 (07:30→23:41)
[2016-11-30] MEDS: PANTOPRAZOLE 40 MG TABLET PO SCH (07:31)
[2016-11-30] MEDS: DOCUSATE 100 MG CAP PO SCH ×2 (07:31→20:28)
[2016-11-30] MEDS: NADOLOL 20 MG TAB PO SCH (07:31)
[2016-11-30] MEDS: DEXAMETHASONE SOD PHOSPHATE 4 MG/ML 1 ML VIAL IV SCH ×3 (07:35→23:42)
[2016-11-30] MEDS: HEPARIN SODIUM,PORCINE 5,000 UNIT/ML 1 ML VIAL SQ SCH ×2 (07:35→20:28)
[2016-11-30] MEDS: TRIAMTERENE-HCTZ 37.5-25MG 1 EACH CAP PO SCH (07:35)
[2016-11-30 08:12] LABS: ALT 35 U/L (9-52); AST 91 U/L (14-36); Alkaline Phosphatase 319 U/L (38-126); Anion Gap 8 mmol/L; Blood Urea Nitrogen 16 mg/dL (7-17); Calcium 9.8 mg/dL (8.4-10.2); Carbon Dioxide 31 mmol/L (22-30); Chloride 97 mmol/L (98-107); Glucose 109 mg/dL (74-99); Non-African American GFR(MDRD) >60 (>60 ml/min/1.73 sqM); Potassium 4.2 mmol/L (3.5-5.1); Sodium 136 mmol/L (137-145); Total Bilirubin 0.6 mg/dL (0.2-1.3); Total Protein 6.5 g/dL (6.3-8.2)
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
[2016-11-30] MEDS: ONDANSETRON 4 MG/2 ML VIAL IVP PRN (14:04)
--- NOTE | 2016-11-30 14:16 | P.PN ---
Subjective Patient is doing fairly well today. Her pain is well-controlled. No event last night. Objective - Vital Signs Vital signs: Vital Signs Temp 96.9 F L 11/30/16 07:00 Pulse 68 11/30/16 07:00 Resp 16 11/30/16 07:00 BP 149/81 11/30/16 07:00 Pulse Ox 96 11/30/16 07:00 Intake & Output 11/29/16 11/30/16 11/30/16 18:59 06:59 18:59 Intake Total 360 1310 Balance 360 1310 Intake: Oral 360 1310 Other: Voiding Method Bedpan Bedpan # Voids 2 3 1 - Exam General: The patient is awake and alert, in no distress Eye: there is normal conjunctiva bilaterally. Neck: The neck is supple, there is no JVD. Cardiovascular: Normal S1-S2, no S3-S4, no murmurs. Respiratory: Lungs clear to auscultation bilaterally Gastrointestinal: Abdomen is soft, nontender Musculoskeletal: There is no pedal edema. Neurological:. Speech is normal. Skin: Skin is warm and dry - Labs CBC & Chem 7: 11/30/16 06:27 11/30/16 07:34 Labs: Abnormal Lab Results - Last 24 Hours (Table) 11/30/16 11/30/16 Range/Units 06:27 07:34 WBC 14.3 H (3.8-10.6) k/uL Hgb 9.0 L (11.4-16.0) gm/dL Hct 31.5 L (34.0-46.0) % MCH 23.4 L (25.0-35.0) pg MCHC 28.6 L (31.0-37.0) g/dL RDW 16.7 H (11.5-15.5) % Neutrophils # 12.1 H (1.3-7.7) k/uL Lymphocytes # 0.5 L (1.0-4.8) k/uL Monocytes # 1.4 H (0-1.0) k/uL Sodium 136 L (137-145) mmol/L Chloride 97 L (98-107) mmol/L Carbon Dioxide 31 H (22-30) mmol/L Creatinine 0.47 L (0.52-1.04) mg/dL Glucose 109 H (74-99) mg/dL AST 91 H (14-36) U/L Alkaline Phosphatase 319 H (38-126) U/L Albumin 3.4 L (3.5-5.0) g/dL Microbiology - Last 24 Hours (Table) 11/29/16 19:00 Urine Culture - Preliminary Urine,Clean Catch Assessment and Plan Plan: 1. Metastatic disease to the bone of unknown source 2. Acute on chronic back pain involving the cervical and lumbar spine with evidence of pathologic compression fracture of L3 and diffuse metastatic disease to the spine 3. Metastatic liver disease with mild transaminitis 4. Essential hypertension: Blood pressure not well controlled we'll continue to monitor closely 5. Acute on chronic anemia most likely of chronic disease. Patient received 1 unit of blood transfusion. Would monitor CBC daily This is a 71-year-old female who presented to the hospital initially with back pain and was found to have metastatic disease involving the cervical and lumbar spine as well as her liver. Underlying malignancy is unknown. Computed tomography scan of the chest abdomen and pelvis showed no obvious source. Patient is scheduled for CT-guided biopsy of the liver for pathology. She was seen and evaluated by spine surgery and recommending pain control and back brace. She was also seen by oncology. We will continue current regimen otherwise. Appreciate security sales consultant's recommendations.
[2016-11-30] MEDS: ACETAMINOPHEN TAB 325 MG TAB PO PRN (20:31)
[2016-12-01] MEDS: HYDROcodone/APAP 10-325MG 1 EACH TAB PO PRN ×6 (02:08→20:33)
[2016-12-01 05:38] LABS: Anisocytosis Slight; Basophils % (A) 0 %; CH 23.1; CHCM 28.7; Eosinophils # (A) 0.1 k/uL (0-0.7); Eosinophils % (A) 0 %; HCT 33.3 % (34.0-46.0); HDW 4.46; HGB 9.5 gm/dL (11.4-16.0); Hypochromasia Marked; Luc # (Auto) 0.23; Luc % (Auto) 2; Lymphocytes # (A) 0.5 k/uL (1.0-4.8); Lymphocytes % (A) 3 %; MCH 22.9 pg (25.0-35.0); MCHC 28.6 g/dL (31.0-37.0); MCV 80.1 fL (80.0-100.0); Mean Platelet Volume 7.9; Monocytes # (A) 1.1 k/uL (0-1.0); Monocytes % (A) 8 %; Neutrophils # (A) 12.1 k/uL (1.3-7.7); Neutrophils % (A) 87 %; Poikilocytosis Moderate; RBC 4.16 m/uL (3.80-5.40); RDW 16.8 % (11.5-15.5); WBC 13.9 k/uL (3.8-10.6); WBC (Perox) 13.78
[2016-12-01 05:48] LABS: INR 1.2 (<1.1); Prothrombin Time 11.6 sec (9.0-12.0)
[2016-12-01 06:08] LABS: ALT 30 U/L (9-52); AST 83 U/L (14-36); Alkaline Phosphatase 340 U/L (38-126); Anion Gap 7 mmol/L; Blood Urea Nitrogen 15 mg/dL (7-17); Calcium 9.7 mg/dL (8.4-10.2); Carbon Dioxide 32 mmol/L (22-30); Chloride 96 mmol/L (98-107); Glucose 105 mg/dL (74-99); Non-African American GFR(MDRD) >60 (>60 ml/min/1.73 sqM); Potassium 4.5 mmol/L (3.5-5.1); Sodium 135 mmol/L (137-145); Total Bilirubin 0.8 mg/dL (0.2-1.3); Total Protein 6.8 g/dL (6.3-8.2)
[2016-12-01] MEDS: ACETAMINOPHEN TAB 325 MG TAB PO PRN (07:18)
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
[2016-12-01] MEDS: ALPRAZolam 0.5 MG TAB PO PRN ×2 (08:41→17:04)
[2016-12-01] MEDS: HEPARIN SODIUM,PORCINE 5,000 UNIT/ML 1 ML VIAL SQ SCH ×2 (08:45→19:22)
[2016-12-01] MEDS: NADOLOL 20 MG TAB PO SCH (08:45)
[2016-12-01] MEDS: PANTOPRAZOLE 40 MG TABLET PO SCH (08:46)
[2016-12-01] MEDS: DOCUSATE 100 MG CAP PO SCH ×2 (08:46→20:33)
[2016-12-01] MEDS: TRIAMTERENE-HCTZ 37.5-25MG 1 EACH CAP PO SCH (08:46)
[2016-12-01] MEDS: DEXAMETHASONE SOD PHOSPHATE 4 MG/ML 1 ML VIAL IV SCH ×2 (08:46→16:18)
--- NOTE | 2016-12-01 13:32 | P.PN ---
Subjective Patient is doing fairly well today. Her pain is well-controlled. No event last night. Objective - Vital Signs Vital signs: Vital Signs Temp 97.6 F 12/01/16 11:56 Pulse 72 12/01/16 11:56 Resp 18 12/01/16 11:56 BP 136/78 12/01/16 11:56 Pulse Ox 96 12/01/16 11:56 Intake & Output 11/30/16 12/01/16 12/01/16 18:59 06:59 18:59 Intake Total 1420 Balance 1420 Weight 88.451 kg Intake: Oral 1420 Other: Voiding Method Bedpan Bedpan # Voids 2 2 - Exam General: The patient is awake and alert, in no distress Eye: there is normal conjunctiva bilaterally. Neck: The neck is supple, there is no JVD. Cardiovascular: Normal S1-S2, no S3-S4, no murmurs. Respiratory: Lungs clear to auscultation bilaterally Gastrointestinal: Abdomen is soft, nontender Musculoskeletal: There is no pedal edema. Neurological:. Speech is normal. Skin: Skin is warm and dry - Labs CBC & Chem 7: 12/01/16 05:29 12/01/16 05:29 Labs: Abnormal Lab Results - Last 24 Hours (Table) 12/01/16 12/01/16 Range/Units 05:29 05:29 WBC 13.9 H (3.8-10.6) k/uL Hgb 9.5 L (11.4-16.0) gm/dL Hct 33.3 L (34.0-46.0) % MCH 22.9 L (25.0-35.0) pg MCHC 28.6 L (31.0-37.0) g/dL RDW 16.8 H (11.5-15.5) % Neutrophils # 12.1 H (1.3-7.7) k/uL Lymphocytes # 0.5 L (1.0-4.8) k/uL Monocytes # 1.1 H (0-1.0) k/uL Sodium 135 L (137-145) mmol/L Chloride 96 L (98-107) mmol/L Carbon Dioxide 32 H (22-30) mmol/L Creatinine 0.41 L (0.52-1.04) mg/dL Glucose 105 H (74-99) mg/dL AST 83 H (14-36) U/L Alkaline Phosphatase 340 H (38-126) U/L Microbiology - Last 24 Hours (Table) 11/29/16 19:00 Urine Culture - Final Urine,Clean Catch Assessment and Plan Plan: 1. Metastatic disease to the bone of unknown source 2. Acute on chronic back pain involving the cervical and lumbar spine with evidence of pathologic compression fracture of L3 and diffuse metastatic disease to the spine 3. Metastatic liver disease with mild transaminitis 4. Essential hypertension: Blood pressure not well controlled we'll continue to monitor closely 5. Acute on chronic anemia most likely of chronic disease. Patient received 1 unit of blood transfusion. Would monitor CBC daily This is a 71-year-old female who presented to the hospital initially with back pain and was found to have metastatic disease involving the cervical and lumbar spine as well as her liver. Underlying malignancy is unknown. Computed tomography scan of the chest abdomen and pelvis showed no obvious source. Patient is scheduled for CT-guided biopsy of the liver for pathology. She was seen and evaluated by spine surgery and recommending pain control and back brace. She was also seen by oncology. We will continue current regimen otherwise. Appreciate transportation consultant's recommendations.
--- NOTE | 2016-12-01 18:58 | P.PN ---
Subjective The patient appears to be fairly comfortable at rest. She states that her pain is controlled on current regimen. However she has not yet been ambulating, according to Ortho-spine instructions. Objective - Vital Signs Vital signs: Vital Signs Temp 101.0 F H 12/01/16 18:50 Pulse 89 12/01/16 18:50 Resp 16 12/01/16 18:50 BP 113/67 12/01/16 18:50 Pulse Ox 97 12/01/16 18:50 Intake & Output 11/30/16 12/01/16 12/01/16 18:59 06:59 18:59 Intake Total 1420 120 Balance 1420 120 Weight 88.451 kg Intake: Oral 1420 120 Other: Voiding Method Bedpan Bedpan # Voids 2 2 1 - Constitutional General appearance: Present: no acute distress - EENT Eyes: Present: EOMI, PERRLA ENT: Present: hearing grossly normal, normal oropharynx - Respiratory Respiratory: bilateral: CTA - Cardiovascular Rhythm: regular Heart sounds: normal: S1, S2 - Gastrointestinal General gastrointestinal: Present: normal bowel sounds, soft - Integumentary Integumentary: Present: normal - Neurologic Neurologic: Present: CNII-XII intact - Musculoskeletal Musculoskeletal: Present: strength equal bilaterally - Psychiatric Psychiatric: Present: A&O x's 3, appropriate affect - Labs CBC & Chem 7: 12/01/16 05:29 12/01/16 05:29 Labs: Abnormal Lab Results - Last 24 Hours (Table) 12/01/16 12/01/16 Range/Units 05:29 05:29 WBC 13.9 H (3.8-10.6) k/uL Hgb 9.5 L (11.4-16.0) gm/dL Hct 33.3 L (34.0-46.0) % MCH 22.9 L (25.0-35.0) pg MCHC 28.6 L (31.0-37.0) g/dL RDW 16.8 H (11.5-15.5) % Neutrophils # 12.1 H (1.3-7.7) k/uL Lymphocytes # 0.5 L (1.0-4.8) k/uL Monocytes # 1.1 H (0-1.0) k/uL Sodium 135 L (137-145) mmol/L Chloride 96 L (98-107) mmol/L Carbon Dioxide 32 H (22-30) mmol/L Creatinine 0.41 L (0.52-1.04) mg/dL Glucose 105 H (74-99) mg/dL AST 83 H (14-36) U/L Alkaline Phosphatase 340 H (38-126) U/L Microbiology - Last 24 Hours (Table) 11/29/16 19:00 Urine Culture - Final Urine,Clean Catch Assessment and Plan (1) L3 vertebral fracture Narrative/Plan: The location of the fracture is below the cauda equina. Therefore she does not appear to be at any risk of actual cord compression. She does have radiculopathy due to compression. Pain is controlled on her current regimen. She has no evidence of any progression of weakness or neurologic deficit. She is continuing on steroids. She has been evaluated by spinal surgery, and brace has been recommended. From there notes, it appears that there may be some benefit from a vertebroplasty in the future. Given the location and appearance of the lesion, the patient will need radiation for palliation of pain. In addition oncology consult will be requested the patient to initiate the process. Status: Acute (2) Liver masses Narrative/Plan: The patient is scheduled for a CT-guided biopsy today. This will hopefully give us the diagnosis. At this time the primary site is not known. However review of the CT scans of the chest abdomen and pelvis shows possibility of a mass in the cecum area. This could potentially represent the primary site. Status: Acute (3) Cecal lesion Narrative/Plan: This could potentially represent the primary site. The patient will need direct evaluation of the same, to check for any obstruction, if indeed this is the primary site. Of note, she has been having difficulty with the bowel movements over the last week. In addition, her anemia could at least partially be due to blood loss, if indeed this is the primary site. The patient requested Dr. Alvarado/Prashant as that group takes care of other family members. Therefore consult will be placed. Status: Acute
[2016-12-02] MEDS: DEXAMETHASONE SOD PHOSPHATE 4 MG/ML 1 ML VIAL IV SCH ×3 (00:05→15:58)
[2016-12-02] MEDS: ALPRAZolam 0.5 MG TAB PO PRN ×3 (00:07→17:57)
[2016-12-02] MEDS: HYDROcodone/APAP 10-325MG 1 EACH TAB PO PRN ×5 (00:07→21:56)
--- NOTE | 2016-12-02 07:38 | US ---
EXAMINATION TYPE: US biopsy liver DATE OF EXAM: 12/01/2016 HISTORY: Liver mass. FINDINGS: Maximal barrier technique was utilized. The skin overlying a suitable path to the patient' s left lobe liver mass was localized with ultrasound and the overlying skin prepped and draped. Ultr asound was utilized with sterile technique. Lidocaine was used for local anesthesia. A skin rhonda wa s made with a scalpel. An 18-gauge needle was advanced under direct ultrasound guidance and core spe cimen obtained of the mass. Specimen submitted in formalin to Pathology. Following the procedure, h emostasis achieved and the patient is discharged in stable condition without complication. IMPRESSION:STATUS POST ULTRASOUND GUIDED CORE BIOPSY OF left lobe liver MASS, PATHOLOGY IS PENDING. THIS PROCEDURE IS PERFORMED BY THE UNDERSIGNED.
[2016-12-02] MEDS: HEPARIN SODIUM,PORCINE 5,000 UNIT/ML 1 ML VIAL SQ SCH ×2 (07:52→21:51)
[2016-12-02] MEDS: NADOLOL 20 MG TAB PO SCH (07:54)
[2016-12-02] MEDS: TRIAMTERENE-HCTZ 37.5-25MG 1 EACH CAP PO SCH (07:54)
[2016-12-02] MEDS: PANTOPRAZOLE 40 MG TABLET PO SCH (07:55)
[2016-12-02] MEDS: DOCUSATE 100 MG CAP PO SCH ×2 (07:55→21:52)
[2016-12-02] MEDS ORDERED: BISACODYL 5 MG TABLET.DR PO STA (09:55)
[2016-12-02] MEDS ORDERED: BISACODYL 10 MG SUPP RECTAL STA (09:56)
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
--- NOTE | 2016-12-02 11:07 | P.PN ---
Subjective Patient is doing well today. She is just return from a walk down the hallway with physical therapy. Pain is well controlled. Objective - Vital Signs Vital signs: Vital Signs Temp 98.0 F 12/02/16 08:13 Pulse 65 12/02/16 08:13 Resp 18 12/02/16 08:13 BP 160/77 12/02/16 08:13 Pulse Ox 95 12/02/16 08:13 Intake & Output 12/01/16 12/02/16 12/02/16 18:59 06:59 18:59 Intake Total 120 240 Balance 120 240 Weight 88.451 kg Intake: Oral 120 240 Other: Voiding Method Bedpan Bedpan Bedpan # Voids 1 1 - Exam General: The patient is awake and alert, in no distress Eye: there is normal conjunctiva bilaterally. Neck: The neck is supple, there is no JVD. Cardiovascular: Normal S1-S2, no S3-S4, no murmurs. Respiratory: Lungs clear to auscultation bilaterally Gastrointestinal: Abdomen is soft, nontender Musculoskeletal: There is no pedal edema. Neurological:. Speech is normal. Skin: Skin is warm and dry - Labs CBC & Chem 7: 12/01/16 05:29 12/01/16 05:29 Assessment and Plan Plan: 1. Metastatic disease to the bone of unknown source 2. Acute on chronic back pain involving the cervical and lumbar spine with evidence of pathologic compression fracture of L3 and diffuse metastatic disease to the spine 3. Metastatic liver disease with mild transaminitis 4. Essential hypertension: Blood pressure not well controlled we'll continue to monitor closely 5. Acute on chronic anemia most likely of chronic disease. Patient received 1 unit of blood transfusion. Would monitor CBC daily This is a 71-year-old female who presented to the hospital initially with back pain and was found to have metastatic disease involving the cervical and lumbar spine as well as her liver. Underlying malignancy is unknown. Computed tomography scan of the chest abdomen and pelvis showed no obvious source but questionable gastric and ileocecal valve mass. Patient underwent CT-guided biopsy of the liver for pathology on 12/01/2016. She was seen and evaluated by spine surgery and recommending pain control and back brace. She was also seen by oncology and gastroenterology. Plan for EGD and colonoscopy for direct visualization of the suspected gastric and ileocecal valve mass noted on computed tomography scan of the abdomen. We will continue current regimen otherwise. Appreciate automotive service consultant's recommendations.
[2016-12-02] MEDS ORDERED: PEG 3350-NA SULF,BICARB,CL/KCL 4,000 ML BOTTLE PO ONE (12:00)
[2016-12-02] MEDS: LACTATED RINGERS 1,000 ML IV SCH (17:10)
--- NOTE | 2016-12-02 18:48 | CONS ---
DATE OF CONSULTATION: 12/02/2016 REASON FOR CONSULTATION: Malignancy metastatic to lumbar spine causing severe pain, most likely of GI origin. HISTORY OF PRESENT ILLNESS: This is a 71-year-old female patient who presented on 11/26/2016 with increasing abdominal pain. Plain films of the abdomen from 11/26/2016 showed non-obstructive bowel gas pattern. Plain films of the lumbar spine at that time showed a compression fracture at L3 suggestive of a pathological fracture. Follow-up MRI and CT imaging was recommended. Subsequent CT scan of the lumbar spine showed the pathologic L3 compression fracture with an epidural soft tissue component in the paraspinal soft tissues. Other findings show lesions on the liver consistent with metastasis. CT scan of the brain and spine from 11/26/2016 showed no acute intracranial process. There was a lytic lesion in the transverse process of C2. CT scan of the chest, abdomen and pelvis from 11/27/2016 re-demonstrated the L3 pathologic compression fracture with associated soft tissue component. There were densities in the liver consistent with metastasis. Small bilateral effusions were also noted. A possible mass in the ileocecal valve at the tip of the cecum was noted and a colonoscopy was recommended for further evaluation. Other findings showed a possible mass lesion with wall thickening involving the gastric fundus. Endoscopy was recommended for further evaluation as well. Patient subsequently was admitted and underwent further evaluation. On 11/27/2016, MRI of the lumbar spine showed abnormality in the vertebral body of L3 extending to the pedicles causing pathologic compression fracture and destructive changes. There was enhancement along the paraspinal and epidural space. Multi-level metastatic disease was also noted throughout the lumbar spine and sacrum as well as diffuse hepatic metastasis. On 12/01/2016, ultrasound-guided liver biopsy was performed, and the pathology is pending. Patient has undergone inpatient consultation with Medical Oncology by Dr. Tubbs as well. Patient is scheduled for upper and lower endoscopies on 12/03/2016 for further evaluation. PAST MEDICAL HISTORY: 1. Hypertension. 2. Osteoarthritis. PAST SURGICAL HISTORY: 1. Appendectomy. 2. Adenoidectomy. 3. section. 4. Tonsillectomy. MEDICATIONS: 1. Alprazolam. 2. Ibuprofen. 3. Nadolol. 4. Omeprazole. 5. Triamterene hydrochlorothiazide. ALLERGIES: 1. ALBUTEROL. 2. PROCHLORPERAZINE, CAUSING RAPID HEART RATE. REVIEW OF SYSTEMS: CONSTITUTIONAL: Positive for fatigue, weight loss. Negative for fevers or chills. HEENT: Negative for odynophagia, neck masses. RESPIRATORY: Negative for increased shortness of breath, chest pain, hemoptysis. GASTROINTESTINAL: As per HPI. Positive for lower back pain, abdominal pain. Negative for nausea, vomiting, hematochezia. GENITOURINARY: Negative for incontinence, hematuria, obstructive uropathy. NEUROLOGIC: Positive for lower back pain. Negative for headache, seizure activity, syncope. PHYSICAL EXAMINATION: Well-developed, well-nourished elderly female patient. No acute distress. Sitting comfortably in chair. Performance status is good to fair. VITAL SIGNS: Temperature 101, pulse 89, respirations 16, blood pressure 113/67. Oxygen saturation 97%. HEENT exam shows no scleral icterus. Oral cavity shows mucosal lesions. NECK: Supple without palpable lymphadenopathy. Chest is clear. There are no audible wheezes. HEART: Regular rate and rhythm. ABDOMEN: Round, soft, non-tender. There is no organomegaly or masses. Musculoskeletal assessment shows focal tenderness along the lower lumbar spine. Extremities show no edema or tenderness. ASSESSMENT: [id number][age][id number]-old female patient with malignant process, most likely originating from the cecal or gastric region as noted on the CT imaging with metastatic involvement of bones, particularly L3 vertebral body with compression fracture and soft tissue component causing severe pain. Patient has multiple lesions in the liver and underwent CT-guided biopsy on 12/01/2016. The pathology is pending. The patient is scheduled for upper and lower endoscopy on 12/03/2016. She has been seen by Medical Oncology as well. RECOMMENDATION: I had a lengthy discussion with the patient regarding her presentation, CT imaging and findings and plan of care. I agree with a tissue biopsy from the liver lesion. I also agree with upper and lower endoscopies. I will await the final pathology. If the process is malignant, patient would benefit from palliative radiation therapy, particularly to the lumbar spine, which is causing severe pain. I will continue to follow the patient's progress and offer recommendations once tissue diagnosis has been confirmed. Radiation therapy treatment can be started on an inpatient basis if indicated as well. I also agree with medical oncology input and recommendations. [facility]ATRIC CENTERGabriel
[2016-12-03] MEDS: DEXAMETHASONE SOD PHOSPHATE 4 MG/ML 1 ML VIAL IV SCH ×3 (00:47→17:15)
[2016-12-03] MEDS: ALPRAZolam 0.5 MG TAB PO PRN ×2 (06:16→20:40)
[2016-12-03] MEDS: HYDROcodone/APAP 10-325MG 1 EACH TAB PO PRN ×3 (06:19→20:40)
--- NOTE | 2016-12-03 09:13 | P.PN ---
Progress Note - Text Patient is seen and examined today at bedside. She was able to ambulate with her brace on for her thoracic spine yesterday. She said she felt fairly comfortable with the brace intact and mobilizing. She still feels soreness at her middle back. She's not having any new neurologic changes at her lower extremities or changes in bowel bladder function. On exam she has some paravertebral spasm in her back. There is no open wounds lacerations or abrasions. Her lower extremities have sustained dorsal flexion plantar flexion and EHL. This no tenderness with palpation and her thighs and calves are soft and nontender Assessment and plan Pathologic compression fracture T8 Multiple spinal metastasis Thoracic back pain without neurologic deficit The patient has new diagnosis with metastasis at her thoracic spine. She has a pathologic compression fracture at T8 which is acute. She is continuing workup evaluation and treatment with hematology oncology as well as radiation oncology. She is scheduled to begin radiation oncology for her thoracic spine and I believe this is appropriate. She says that she has been somewhat comfortable with her mobility and using the TLSO brace for her mobilization thus far. Her mobilization has been quite limited so far but we will see how she does with continued bracing. I also discussed the possibility of kyphoplasty particularly at T8 with her and her daughter as well as with Dr. Tubbs. I think that a kyphoplasty is reasonable option for her if she is not able to increase her mobility or if her pain is not well controlled. Kyphoplasty may give her some increased pain control and allow her to mobilize better. I discussed this with her and she and her family will consider this option. From a spine standpoint it would be okay for her to be discharged with her TLSO brace with close follow-up with us when she is medically able. I discussed this with her answered her questions to the best of my ability and she is agreeable.
[2016-12-03] MEDS ORDERED: PROPOFOL 10 MG/ML 20 ML VIAL IV ONE (09:42)
[2016-12-03] MEDS ORDERED: LIDOCAINE 1% INJ 10MG/ML (20 ML MDV) ONE (09:42)
[2016-12-03] MEDS ORDERED: IV FLUID CONTINUATION 1,000 ML IV ONE (09:47)
--- NOTE | 2016-12-03 10:11 | P.PN ---
Subjective Patient is lying in bed comfortably. She was able to walk in the hallway with a back brace with physical therapy. Pain is controlled. She is scheduled for EGD and colonoscopy today. Denies any chest pain or shortness of breath. Denies any nausea or vomiting. Urinating adequately. Objective - Vital Signs Vital signs: Vital Signs Temp 98.6 F 12/03/16 07:56 Pulse 74 12/03/16 07:56 Resp 18 12/03/16 07:56 BP 117/69 12/03/16 07:56 Pulse Ox 96 12/03/16 07:56 Intake & Output 12/02/16 12/03/16 12/03/16 18:59 06:59 18:59 Other: Voiding Method Bedpan Bedpan # Voids 2 1 # Bowel Movements 1 - Exam Head normocephalic Neck supple Lungs clear to auscultation bilaterally no wheezing or crackles Heart regular rate and rhythm S1-S2, no rub or gallop Abdomen is soft nontender nondistended positive bowel sounds no hepatosplenomegaly Extremities no edema Neuro alert and orientated to 3 - Labs CBC & Chem 7: 12/01/16 05:29 12/01/16 05:29 Assessment and Plan Plan: 1. Metastatic disease to the bone of unknown source: workup in progress patient scheduled for EGD and colonoscopy to evaluate for possible primary GI source due to this cecal lesion noted on CT scan 2. Acute on chronic back pain involving the cervical and lumbar spine with evidence of pathologic compression fracture of L3 and diffuse metastatic disease to the spine. Patient has seen by spinal service and back brace has been ordered. They've also discussed possibility of kyphoplasty. Patient has been seen by radiation oncologist in regards to starting radiation treatment. 3. Metastatic liver disease with mild transaminitis 4. Essential hypertension: Blood pressure not well controlled we'll continue to monitor closely 5. Acute on chronic anemia most likely of chronic disease. Patient received 1 unit of blood transfusion. Would monitor CBC daily. 6. Cecal lesion patient scheduled for EGD and colonoscopy today This is a 71-year-old female who presented to the hospital initially with back pain and was found to have metastatic disease involving the cervical and lumbar spine as well as her liver. Underlying malignancy is unknown. Computed tomography scan of the chest abdomen and pelvis showed no obvious source but questionable gastric and ileocecal valve mass. Patient underwent CT-guided biopsy of the liver for pathology on 12/01/2016. She was seen and evaluated by spine surgery and recommending pain control and back brace. She was also seen by oncology and gastroenterology. Plan for EGD and colonoscopy for direct visualization of the suspected gastric and ileocecal valve mass noted on computed tomography scan of the abdomen. We will continue current regimen otherwise. Appreciate audit consultant's recommendations. I performed an examination of the patient and discussed their management with the physician Industrial Engineering Technologist. I have reviewed the Physician Industrial Engineering Technologist's notes and agree with the documented findings and plan of care
--- NOTE | 2016-12-03 10:16 | P.PCN ---
Date of Procedure: 12/03/16 Preoperative Diagnosis: Postoperative Diagnosis: Procedure(s) Performed: Brief history: Patient is a pleasant 71-year-old white female, scheduled for an elective upper endoscopy as well as colonoscopy as a part of evaluation of abdominal pain and abnormal CAT scan of the abdomen showing possible mass in the fundus of the stomach and in the cecum. She was admitted to the hospital with abdominal pain and back pain and a CT of the abdomen showed multiple lesions in the liver suspicious for metastasis. She underwent liver biopsy yesterday. Results are still pending at the time of this dictation. Procedure performed: Esophagogastroduodenoscopy Colonoscopy with biopsy Preoperative diagnosis: Abdominal pain Change in bowel habits Abnormal CAT scan showing lesion in the fundus of the stomach as well as in the cecum. Anesthesia: MAC Procedure: After informed consent was obtained from the patient was brought into the endoscopy unit and IV sedation was administered by anesthesia under continuous monitoring. Initially upper endoscopy was done. The Olympus GF 160 video endoscope was inserted inserted into the mouth and esophagus intubated without any difficulty and was gradually advanced into the stomach and duodenum and carefully examined. The bulb and second part of the duodenum appeared normal. The scope was then withdrawn into the stomach adequately insufflated with air and upon careful examination the antrum and body, cardia and fundus appeared normal. The scope was then withdrawn into the esophagus. Moderate to large size hiatal hernia noted. The GE junction was located at 30 cm to the incisors. It appeared regular with no erythema erosions or ulcerations. Rest of the esophagus appeared normal. Patient tolerated the procedure well. At this time the patient continued to remain sedation. Initial digital rectal examination was normal. Olympus CF 160 video colonoscope was then inserted into the rectum and gradually advanced to the right colon without any difficulty. Careful examination was performed as the scope was gradually being withdrawn. There was a circumferential ulcerated mass noted in the base of the cecum involving the ileocecal valve and the entire cecum and multiple biopsies were done from this area. The ascending colon, transverse colon, descending colon, sigmoid colon appeared normal. In the rectum there was a large impacted stool identified and hence the mucosa could not be adequately visualized. Retroflexion could not be performed in the rectum. Patient tolerated the procedure well. Impression: 1. Upper endoscopy revealed moderate to large size hiatal hernia but no masses identified. 2. Colonoscopy revealed large ulcerated cecal mass involving the entire cecum and the ileocecal valve, status post multiple biopsies. Recommendations: Findings of this examination were discussed with the patient as well as her family. At this time will await the biopsy results Implants: Indications for Procedure: Operative Findings: Description of Procedure:
[2016-12-03] MEDS: DOCUSATE 100 MG CAP PO SCH ×3 (10:59→20:41)
[2016-12-03] MEDS: PANTOPRAZOLE 40 MG TABLET PO SCH (10:59)
[2016-12-03] MEDS: HEPARIN SODIUM,PORCINE 5,000 UNIT/ML 1 ML VIAL SQ SCH ×2 (10:59→20:41)
[2016-12-03] MEDS: NADOLOL 20 MG TAB PO SCH (14:23)
[2016-12-03] MEDS: TRIAMTERENE-HCTZ 37.5-25MG 1 EACH CAP PO SCH (14:23)
[2016-12-03] MEDS: LACTATED RINGERS 1,000 ML IV SCH (16:24)
[2016-12-04] MEDS: HYDROcodone/APAP 10-325MG 1 EACH TAB PO PRN ×4 (03:17→17:45)
[2016-12-04] MEDS: DOCUSATE 100 MG CAP PO SCH ×2 (08:32→21:20)
[2016-12-04] MEDS: DEXAMETHASONE SOD PHOSPHATE 4 MG/ML 1 ML VIAL IV SCH ×3 (08:32→15:37)
[2016-12-04] MEDS: PANTOPRAZOLE 40 MG TABLET PO SCH (08:32)
[2016-12-04] MEDS: HEPARIN SODIUM,PORCINE 5,000 UNIT/ML 1 ML VIAL SQ SCH ×2 (08:32→21:06)
[2016-12-04] MEDS: TRIAMTERENE-HCTZ 37.5-25MG 1 EACH CAP PO SCH (08:35)
[2016-12-04] MEDS: NADOLOL 20 MG TAB PO SCH (08:35)
[2016-12-04] MEDS: ALPRAZolam 0.5 MG TAB PO PRN ×2 (08:58→14:06)
--- NOTE | 2016-12-04 13:23 | P.PN ---
Subjective Patient had EGD and colonoscopy yesterday which showed large hiatal hernia and large ulcerated cecal mass involving the entire cecum and ileocecal valve. Patient is followed by oncology and has been evaluated by radiation oncologist. Patient is still having effects from the GoLYTELY prep. She's had had several watery stools. And has been unable to work with physical therapy yesterday or today. She is still feeling weak. Requiring the use of a walker. She is requesting a prescription for hospital bed when discharged home. Patient did not is any chest pain or shortness of breath. Denies any nausea or vomiting. Denies any difficulty urinating. Objective - Vital Signs Vital signs: Vital Signs Temp 97.7 F 12/04/16 07:30 Pulse 66 12/04/16 07:30 Resp 16 12/04/16 07:30 BP 137/67 12/04/16 07:30 Pulse Ox 94 L 12/04/16 07:30 Intake & Output 12/03/16 12/04/16 12/04/16 18:59 06:59 18:59 Intake Total 100 190 Balance 100 190 Weight 88.451 kg Intake: IV 100 Oral 190 Other: Voiding Method Bedpan Bedpan # Voids 2 3 # Bowel Movements 1 - Exam Head normocephalic Neck supple Lungs clear to auscultation bilaterally no wheezing or crackles Heart regular rate and rhythm S1-S2, no rub or gallop Abdomen is soft nontender nondistended positive bowel sounds no hepatosplenomegaly Extremities no edema Neuro alert and orientated to 3 - Labs CBC & Chem 7: 12/01/16 05:29 12/01/16 05:29 Assessment and Plan Plan: 1. Metastatic disease to the bone and liver likely originating from the cecum. Underwent EGD and colonoscopy revealing a large ulcerated cecal mass involving the entire cecum and ileocecal valve. Multiple biopsies obtained. EGD showed a large hiatal hernia 2. Acute on chronic back pain involving the cervical and lumbar spine with evidence of pathologic compression fracture of L3 and diffuse metastatic disease to the spine. Patient has seen by spinal service and back brace has been ordered. They've also discussed possibility of kyphoplasty. Patient has been seen by radiation oncologist in regards to starting radiation treatment. 3. Metastatic liver disease with mild transaminitis 4. Essential hypertension: Blood pressure not well controlled we'll continue to monitor closely 5. Acute on chronic anemia most likely of chronic disease. Patient received 1 unit of blood transfusion. Would monitor CBC daily. 6. Medical debility: Continue with physical therapy. Patient unable to work with physical therapy yesterday due to testing. She is currently still having loose stools due to the bowel prep. We'll continue to monitor. Patient at time of discharge wants to go home with home care. This is a 71-year-old female who presented to the hospital initially with back pain and was found to have metastatic disease involving the cervical and lumbar spine as well as her liver. Underlying malignancy is unknown. Computed tomography scan of the chest abdomen and pelvis showed no obvious source but questionable gastric and ileocecal valve mass. Patient underwent CT-guided biopsy of the liver for pathology on 12/01/2016. She was seen and evaluated by spine surgery and recommending pain control and back brace. She was also seen by oncology and gastroenterology. Plan for EGD and colonoscopy for direct visualization of the suspected gastric and ileocecal valve mass noted on computed tomography scan of the abdomen. We will continue current regimen otherwise. Appreciate lean process deployment consultant's recommendations. I performed an examination of the patient and discussed their management with the physician Cuff Slitter. I have reviewed the Physician Cuff Slitter's notes and agree with the documented findings and plan of care
--- NOTE | 2016-12-04 18:19 | P.PN ---
Subjective The patient's pain is reasonably controlled at rest. She is more comfortable ambulating and bearing weight with the brace. She denies any progression of lower extremity weakness. She denies any loss of sensation in the lower extremities.. She has been having somewhat frequent loose stools since receiving oral contrast and has therefore been more bedbound today. Objective - Vital Signs Vital signs: Vital Signs Temp 98.1 F 12/04/16 14:55 Pulse 62 12/04/16 14:55 Resp 16 12/04/16 14:55 BP 133/73 12/04/16 14:55 Pulse Ox 94 L 12/04/16 14:55 Intake & Output 12/03/16 12/04/16 12/04/16 18:59 06:59 18:59 Intake Total 100 190 Balance 100 190 Weight 88.451 kg Intake: IV 100 Oral 190 Other: Voiding Method Bedpan Bedpan # Voids 2 3 2 # Bowel Movements 1 - Constitutional General appearance: Present: no acute distress - EENT Eyes: Present: EOMI, PERRLA ENT: Present: hearing grossly normal, normal oropharynx - Respiratory Respiratory: bilateral: CTA - Cardiovascular Rhythm: regular Heart sounds: normal: S1, S2 - Gastrointestinal General gastrointestinal: Present: normal bowel sounds, soft - Integumentary Integumentary: Present: normal - Neurologic Neurologic: Present: CNII-XII intact - Musculoskeletal Musculoskeletal: Present: strength equal bilaterally - Psychiatric Psychiatric: Present: A&O x's 3, appropriate affect - Labs CBC & Chem 7: 12/01/16 05:29 12/01/16 05:29 Assessment and Plan (1) L3 vertebral fracture Narrative/Plan: This is pathologic in nature. The patient's symptoms are improved with the pain medication, as well as bracing. The case was discussed with radiation oncology, as well as orthopedic spine surgery. It is felt that the patient will benefit palliatively from radiation, as well as kyphoplasty. The patient had discussed kyphoplasty with Dr. Martin, and was considering it. I did recommend that she proceed with that, along with radiation for maximal palliation. Status: Acute (2) Liver masses Narrative/Plan: The biopsy is positive for adenocarcinoma. Given the presence of mass in the cecum, most likely this represents colonic primary. Final pathology after IHC staining is awaited Status: Acute (3) Cecal lesion Narrative/Plan: This appears to be the primary site. This has been biopsied with results pending. Case was discussed with Dr. Cerda. The entire cecum was occupied and the ileocecal valve could not visualize. However there did not appear to be any obstruction clinically with the stool passing through quite well. Status: Acute Plan: Based on the above, the patient appears to have colon cancer with the liver and bone metastasis. It was discussed with the patient, that her disease is stage IV, and not curable. The standard of care would be systemic chemotherapy with immunotherapy as an adjunct. Infusional FOLFOX would be a standard of care. The patient will need port placement. We'll discuss with the admitting service regarding placing a consult for the same. She will start treatment once she finishes radiation to the spine.
[2016-12-04] MEDS: LACTATED RINGERS 1,000 ML IV SCH (20:43)
[2016-12-05] MEDS: HYDROcodone/APAP 10-325MG 1 EACH TAB PO PRN ×3 (00:04→14:51)
[2016-12-05] MEDS: DEXAMETHASONE SOD PHOSPHATE 4 MG/ML 1 ML VIAL IV SCH ×4 (00:05→23:41)
[2016-12-05 07:29] LABS: Anisocytosis Slight; Basophils % (A) 0 %; CH 22.9; CHCM 29.7; Eosinophils % (A) 0 %; HCT 32.1 % (34.0-46.0); HDW 4.44; HGB 9.6 gm/dL (11.4-16.0); Hypochromasia Marked; Luc # (Auto) 0.28; Luc % (Auto) 2; Lymphocytes # (A) 0.6 k/uL (1.0-4.8); Lymphocytes % (A) 4 %; MCH 23.2 pg (25.0-35.0); MCHC 30.1 g/dL (31.0-37.0); Mean Platelet Volume 7.3; Microcytosis Slight; Monocytes # (A) 1.5 k/uL (0-1.0); Monocytes % (A) 9 %; Neutrophils % (A) 86 %; Poikilocytosis Moderate; RBC 4.17 m/uL (3.80-5.40); RDW 16.7 % (11.5-15.5); WBC 16.3 k/uL (3.8-10.6); WBC (Perox) 16.71
[2016-12-05 07:40] LABS: ALT 38 U/L (9-52); AST 63 U/L (14-36); Alkaline Phosphatase 374 U/L (38-126); Anion Gap 10 mmol/L; Blood Urea Nitrogen 23 mg/dL (7-17); Calcium 10.3 mg/dL (8.4-10.2); Carbon Dioxide 29 mmol/L (22-30); Chloride 94 mmol/L (98-107); Glucose 123 mg/dL (74-99); Non-African American GFR(MDRD) >60 (>60 ml/min/1.73 sqM); Potassium 4.1 mmol/L (3.5-5.1); Sodium 133 mmol/L (137-145); Total Bilirubin 0.6 mg/dL (0.2-1.3); Total Protein 6.4 g/dL (6.3-8.2)
[2016-12-05] MEDS: ALPRAZolam 0.5 MG TAB PO PRN ×2 (09:11→21:32)
[2016-12-05] MEDS: PANTOPRAZOLE 40 MG TABLET PO SCH (09:13)
[2016-12-05] MEDS: DOCUSATE 100 MG CAP PO SCH ×2 (09:14→21:20)
[2016-12-05] MEDS: HEPARIN SODIUM,PORCINE 5,000 UNIT/ML 1 ML VIAL SQ SCH ×2 (09:14→21:20)
[2016-12-05] MEDS: NADOLOL 20 MG TAB PO SCH (09:14)
[2016-12-05] MEDS: TRIAMTERENE-HCTZ 37.5-25MG 1 EACH CAP PO SCH (09:15)
--- NOTE | 2016-12-05 10:29 | P.PN ---
Subjective 71-year-old being seen and evaluated resting in bed. Patient is teary-eyed this morning verbalizing concern about telling her daughters her diagnosis of cancer patient does state the pain medication has been effective for pain control. Patient did have an EGD and a colonoscopy done on December 03 findings showed large hiatal hernia, large ulcerated cecal mass involving the entire cecum and the ileocecal valve. Patient has been following closely by oncology radiation oncologist [facility] Objective - Vital Signs Vital signs: Vital Signs Temp 97.9 F 12/05/16 08:51 Pulse 68 12/05/16 08:51 Resp 20 12/05/16 08:51 BP 154/76 12/05/16 08:51 Pulse Ox 96 12/05/16 08:51 Intake & Output 12/04/16 12/05/16 12/05/16 18:59 06:59 18:59 Intake Total 1300 Balance 1300 Intake: Oral 1300 Other: Voiding Method Bedpan Bedpan # Voids 2 2 # Bowel Movements 2 - Exam Physical exam 71-year-old female resting in bed. Pleasant cooperative oriented 3 states pain medication effective for pain control Lungs essentially clear adequate air movement Heart S1-S2 audible regular Abdomen soft frequent stooling urinating no difficulty not distended nontender Extremities no edema noted to the upper or lower extremities - Labs CBC & Chem 7: 12/05/16 07:00 12/05/16 07:00 Labs: Abnormal Lab Results - Last 24 Hours (Table) 12/05/16 12/05/16 Range/Units 07:00 07:00 WBC 16.3 H (3.8-10.6) k/uL Hgb 9.6 L (11.4-16.0) gm/dL Hct 32.1 L (34.0-46.0) % MCV 77.0 L (80.0-100.0) fL MCH 23.2 L (25.0-35.0) pg MCHC 30.1 L (31.0-37.0) g/dL RDW 16.7 H (11.5-15.5) % Neutrophils # 14.0 H (1.3-7.7) k/uL Lymphocytes # 0.6 L (1.0-4.8) k/uL Monocytes # 1.5 H (0-1.0) k/uL Sodium 133 L (137-145) mmol/L Chloride 94 L (98-107) mmol/L BUN 23 H (7-17) mg/dL Glucose 123 H (74-99) mg/dL Calcium 10.3 H (8.4-10.2) mg/dL AST 63 H (14-36) U/L Alkaline Phosphatase 374 H (38-126) U/L Assessment and Plan Plan: Assessment and Plan Plan: 1. Metastatic disease to the bone and liver likely originating from the cecum. Underwent EGD and colonoscopy revealing a large ulcerated cecal mass involving the entire cecum and ileocecal valve. Multiple biopsies obtained. EGD showed a large hiatal hernia 2. Acute on chronic back pain involving the cervical and lumbar spine with evidence of pathologic compression fracture of L3 and diffuse metastatic disease to the spine. Patient has seen by spinal service and back brace has been ordered. They've also discussed possibility of kyphoplasty. Patient has been seen by radiation oncologist in regards to starting radiation treatment. 3. Metastatic liver disease with mild transaminitis 4. Essential hypertension: Blood pressure not well controlled we'll continue to monitor closely 5. Acute on chronic anemia most likely of chronic disease. Patient received 1 unit of blood transfusion. Would monitor CBC daily. 6. Medical debility: Continue with physical therapy. Patient unable to work with physical therapy yesterday due to testing. She is currently still having loose stools due to the bowel prep. We'll continue to monitor. Colon cancer with liver and bone metastasis Surgical eval patient will need med port placed in anticipation of systemic chemotherapy with immunotherapy as an adjunct per oncology's recommendations treatment will start once patient finishes radiation treatment to the spine The above dictated assessment and findings were discussed with dr jeffery Mir and the plan of care have been dictated as directed. Rama Mckeon nurse practitioner acting as a scribe for dr gil
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
[2016-12-05] MEDS: ESCITALOPRAM 10 MG TAB PO SCH (16:47)
[2016-12-05] MEDS: LACTATED RINGERS 1,000 ML IV SCH (16:56)
[2016-12-05] MEDS: ONDANSETRON 4 MG/2 ML VIAL IVP PRN (21:32)
[2016-12-06] MEDS: HYDROcodone/APAP 10-325MG 1 EACH TAB PO PRN ×3 (04:21→14:46)
[2016-12-06 07:24] LABS: Anisocytosis Slight; Basophils % (A) 0 %; CH 22.5; CHCM 28.8; Eosinophils % (A) 0 %; HCT 33.4 % (34.0-46.0); HDW 4.21; HGB 9.8 gm/dL (11.4-16.0); Hypochromasia Marked; Luc # (Auto) 0.23; Luc % (Auto) 2; Lymphocytes # (A) 0.6 k/uL (1.0-4.8); Lymphocytes % (A) 4 %; MCH 22.9 pg (25.0-35.0); MCHC 29.4 g/dL (31.0-37.0); MCV 77.8 fL (80.0-100.0); Microcytosis Slight; Monocytes # (A) 1.2 k/uL (0-1.0); Monocytes % (A) 8 %; Neutrophils # (A) 12.4 k/uL (1.3-7.7); Neutrophils % (A) 86 %; Poikilocytosis Moderate; RDW 16.8 % (11.5-15.5); WBC 14.5 k/uL (3.8-10.6)
[2016-12-06 07:38] LABS: ALT 40 U/L (9-52); AST 64 U/L (14-36); Alkaline Phosphatase 369 U/L (38-126); Anion Gap 10 mmol/L; Blood Urea Nitrogen 24 mg/dL (7-17); Calcium 10.2 mg/dL (8.4-10.2); Carbon Dioxide 29 mmol/L (22-30); Chloride 93 mmol/L (98-107); Glucose 111 mg/dL (74-99); Non-African American GFR(MDRD) >60 (>60 ml/min/1.73 sqM); Potassium 4.3 mmol/L (3.5-5.1); Sodium 132 mmol/L (137-145); Total Bilirubin 0.7 mg/dL (0.2-1.3); Total Protein 6.7 g/dL (6.3-8.2)
[2016-12-06] MEDS: DEXAMETHASONE SOD PHOSPHATE 4 MG/ML 1 ML VIAL IV SCH ×3 (09:22→23:29)
[2016-12-06] MEDS: HEPARIN SODIUM,PORCINE 5,000 UNIT/ML 1 ML VIAL SQ SCH ×2 (09:25→20:40)
[2016-12-06] MEDS: DOCUSATE 100 MG CAP PO SCH ×2 (09:25→20:40)
[2016-12-06] MEDS: TRIAMTERENE-HCTZ 37.5-25MG 1 EACH CAP PO SCH (09:25)
[2016-12-06] MEDS: PANTOPRAZOLE 40 MG TABLET PO SCH (09:26)
[2016-12-06] MEDS: NADOLOL 20 MG TAB PO SCH (09:26)
[2016-12-06] MEDS: ESCITALOPRAM 10 MG TAB PO SCH ×2 (10:00→20:40)
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
[2016-12-06] MEDS: ALPRAZolam 0.5 MG TAB PO PRN (14:46)
[2016-12-07] MEDS: ALPRAZolam 0.5 MG TAB PO PRN ×4 (00:49→23:50)
[2016-12-07] MEDS: HYDROcodone/APAP 10-325MG 1 EACH TAB PO PRN ×5 (00:49→20:52)
[2016-12-07 07:08] LABS: Anisocytosis Slight; Basophils % (A) 0 %; CH 22.7; CHCM 28.8; Eosinophils % (A) 0 %; HCT 34.2 % (34.0-46.0); HDW 4.14; HGB 9.8 gm/dL (11.4-16.0); Hypochromasia Marked; Luc # (Auto) 0.24; Luc % (Auto) 2; Lymphocytes # (A) 0.6 k/uL (1.0-4.8); Lymphocytes % (A) 4 %; MCH 22.4 pg (25.0-35.0); MCHC 28.6 g/dL (31.0-37.0); MCV 78.5 fL (80.0-100.0); Mean Platelet Volume 6.4; Microcytosis Slight; Monocytes # (A) 1.1 k/uL (0-1.0); Monocytes % (A) 7 %; Neutrophils # (A) 13.9 k/uL (1.3-7.7); Neutrophils % (A) 88 %; Poikilocytosis Moderate; RBC 4.36 m/uL (3.80-5.40); RDW 16.8 % (11.5-15.5); WBC 15.9 k/uL (3.8-10.6); WBC (Perox) 16.42
[2016-12-07 07:49] LABS: ALT 43 U/L (9-52); AST 82 U/L (14-36); Alkaline Phosphatase 383 U/L (38-126); Anion Gap 10 mmol/L; Blood Urea Nitrogen 23 mg/dL (7-17); Calcium 10.1 mg/dL (8.4-10.2); Carbon Dioxide 27 mmol/L (22-30); Chloride 94 mmol/L (98-107); Glucose 96 mg/dL (74-99); Non-African American GFR(MDRD) >60 (>60 ml/min/1.73 sqM); Potassium 4.3 mmol/L (3.5-5.1); Sodium 131 mmol/L (137-145); Total Bilirubin 0.8 mg/dL (0.2-1.3); Total Protein 6.8 g/dL (6.3-8.2)
[2016-12-07] MEDS: NADOLOL 20 MG TAB PO SCH (08:12)
[2016-12-07] MEDS: PANTOPRAZOLE 40 MG TABLET PO SCH (08:12)
[2016-12-07] MEDS: TRIAMTERENE-HCTZ 37.5-25MG 1 EACH CAP PO SCH (08:12)
[2016-12-07] MEDS: ACETAMINOPHEN TAB 325 MG TAB PO PRN ×2 (08:12→14:48)
[2016-12-07] MEDS: DOCUSATE 100 MG CAP PO SCH ×2 (08:14→20:52)
[2016-12-07] MEDS: DEXAMETHASONE SOD PHOSPHATE 4 MG/ML 1 ML VIAL IV SCH ×3 (08:14→23:50)
[2016-12-07] MEDS: HEPARIN SODIUM,PORCINE 5,000 UNIT/ML 1 ML VIAL SQ SCH ×2 (08:14→20:52)
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
--- NOTE | 2016-12-07 12:12 | P.PN ---
Subjective Patient reports still having back pain at times. She is scheduled to work with physical therapy today to evaluate patient if she is good for home with home care. Patient's family is arranging the home setting environment they're trying to work on making a ramp so patient can enter the house. Patient denies any chest pain or shortness breath. Denies any nausea or vomiting. She is now having regular bowel movements. Denies any further diarrhea. Denies difficulty urinating. Objective - Vital Signs Vital signs: Vital Signs Temp 98.5 F 12/07/16 07:00 Pulse 65 12/07/16 08:00 Resp 16 12/07/16 08:00 BP 142/68 12/07/16 07:00 Pulse Ox 96 12/07/16 07:00 Intake & Output 12/06/16 12/07/16 12/07/16 18:59 06:59 18:59 Output Total 1 Balance -1 Weight 88.451 kg Output: Urine 1 Other: Voiding Method Toilet Toilet Toilet # Voids 1 1 - Exam Head normocephalic Neck supple Lungs clear to auscultation bilaterally no wheezing or crackles Heart regular rate and rhythm S1-S2, no rub or gallop Abdomen is soft nontender nondistended positive bowel sounds no hepatosplenomegaly Extremities no edema Neuro alert and orientated to 3 - Labs CBC & Chem 7: 12/07/16 06:49 12/07/16 06:49 Labs: Abnormal Lab Results - Last 24 Hours (Table) 12/07/16 12/07/16 Range/Units 06:49 06:49 WBC 15.9 H (3.8-10.6) k/uL Hgb 9.8 L (11.4-16.0) gm/dL MCV 78.5 L (80.0-100.0) fL MCH 22.4 L (25.0-35.0) pg MCHC 28.6 L (31.0-37.0) g/dL RDW 16.8 H (11.5-15.5) % Neutrophils # 13.9 H (1.3-7.7) k/uL Lymphocytes # 0.6 L (1.0-4.8) k/uL Monocytes # 1.1 H (0-1.0) k/uL Sodium 131 L (137-145) mmol/L Chloride 94 L (98-107) mmol/L BUN 23 H (7-17) mg/dL Creatinine 0.43 L (0.52-1.04) mg/dL AST 82 H (14-36) U/L Alkaline Phosphatase 383 H (38-126) U/L Assessment and Plan Plan: 1. 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 Multiple biopsies obtained revealing adenocarcinoma. EGD showed a large hiatal hernia. Liver biopsy positive for adenocarcinoma. Oncology is following the plan is to start chemotherapy and immunotherapy adjuncts after radiation treatment. Discussed with Dr. Tubbs he is recommending a taper of dexamethasone over 2 weeks when discharged. Evaluated by surgical service they'll be placing a port in the near future 2. Acute on chronic back pain involving the cervical and lumbar spine with evidence of pathologic compression fracture of L3 and diffuse metastatic disease to the spine. Patient has seen by spinal service and back brace has been ordered. Awaiting radiation oncologists recommendations when to start radiation treatment. Patient will possibly require kyphoplasty for better pain control. She'll further evaluation with spinal surgery outpatient 3. Metastatic liver disease with mild transaminitis 4. Essential hypertension: Blood pressure not well controlled we'll continue to monitor closely 5. Acute on chronic anemia most likely of chronic disease. Patient received 1 unit of blood transfusion. Would monitor CBC daily. 6. Medical debility: Continue with physical therapy. Patient is to work with physical therapy today to assess if she can be discharged home with home care. At this time awaiting physical therapy recommendations. Patient's family is arranging equipment at home for patient. Awaiting radiation oncologist recommendations when to start radiation treatment. Discussed case with patient and daughters as well as social work and keycase assembler Anticipate discharge possibly tomorrow I performed an examination of the patient and discussed their management with the physician Spray Pilot. I have reviewed the Physician Spray Pilot's notes and agree with the documented findings and plan of care
--- NOTE | 2016-12-07 17:08 | P.PN ---
Subjective Principal diagnosis: Metastatic colon cancer Patient with ongoing complaints of back pain. Denies nausea or vomiting. Tolerating diet. Simulation for radiation therapy pending. Objective - Vital Signs Vital signs: Vital Signs Temp 98 F 12/07/16 14:57 Pulse 67 12/07/16 14:57 Resp 16 12/07/16 14:57 BP 139/74 12/07/16 14:57 Pulse Ox 97 12/07/16 14:57 Intake & Output 12/06/16 12/07/16 12/07/16 18:59 06:59 18:59 Intake Total 480 Output Total 1 Balance -1 480 Weight 88.451 kg Intake: Oral 480 Output: Urine 1 Other: Voiding Method Toilet Toilet Toilet # Voids 1 3 - Exam Abdomen: Soft, nontender, nondistended - Labs CBC & Chem 7: 12/07/16 06:49 12/07/16 06:49 Labs: Abnormal Lab Results - Last 24 Hours (Table) 12/07/16 12/07/16 Range/Units 06:49 06:49 WBC 15.9 H (3.8-10.6) k/uL Hgb 9.8 L (11.4-16.0) gm/dL MCV 78.5 L (80.0-100.0) fL MCH 22.4 L (25.0-35.0) pg MCHC 28.6 L (31.0-37.0) g/dL RDW 16.8 H (11.5-15.5) % Neutrophils # 13.9 H (1.3-7.7) k/uL Lymphocytes # 0.6 L (1.0-4.8) k/uL Monocytes # 1.1 H (0-1.0) k/uL Sodium 131 L (137-145) mmol/L Chloride 94 L (98-107) mmol/L BUN 23 H (7-17) mg/dL Creatinine 0.43 L (0.52-1.04) mg/dL AST 82 H (14-36) U/L Alkaline Phosphatase 383 H (38-126) U/L Assessment and Plan (1) Colorectal cancer, stage IV Narrative/Plan: Will remain on standby for Port-A-Cath placement. We'll try to determine whether this is requested to be performed during this hospitalization or as an outpatient. Status: Acute
[2016-12-07] MEDS: ESCITALOPRAM 10 MG TAB PO SCH (20:52)
[2016-12-08] MEDS: HYDROcodone/APAP 10-325MG 1 EACH TAB PO PRN ×4 (03:57→20:45)
[2016-12-08 07:32] LABS: Anisocytosis Slight; Basophils % (A) 0 %; CHCM 29.5; Eosinophils % (A) 0 %; HCT 32.9 % (34.0-46.0); HDW 4.34; HGB 9.8 gm/dL (11.4-16.0); Hypochromasia Marked; Luc # (Auto) 0.29; Luc % (Auto) 1; Lymphocytes # (A) 0.5 k/uL (1.0-4.8); Lymphocytes % (A) 3 %; MCH 23.1 pg (25.0-35.0); MCHC 29.8 g/dL (31.0-37.0); MCV 77.6 fL (80.0-100.0); Mean Platelet Volume 6.5; Microcytosis Slight; Monocytes # (A) 1.2 k/uL (0-1.0); Monocytes % (A) 6 %; Neutrophils # (A) 18.5 k/uL (1.3-7.7); Neutrophils % (A) 90 %; Poikilocytosis Moderate; RBC 4.25 m/uL (3.80-5.40); RDW 16.8 % (11.5-15.5); WBC 20.6 k/uL (3.8-10.6); WBC (Perox) 21.58
[2016-12-08 07:52] LABS: ALT 43 U/L (9-52); AST 77 U/L (14-36); Alkaline Phosphatase 320 U/L (38-126); Anion Gap 10 mmol/L; Blood Urea Nitrogen 21 mg/dL (7-17); Calcium 9.8 mg/dL (8.4-10.2); Carbon Dioxide 27 mmol/L (22-30); Chloride 94 mmol/L (98-107); Glucose 95 mg/dL (74-99); Non-African American GFR(MDRD) >60 (>60 ml/min/1.73 sqM); Potassium 4.9 mmol/L (3.5-5.1); Sodium 131 mmol/L (137-145); Total Bilirubin 0.7 mg/dL (0.2-1.3); Total Protein 6.7 g/dL (6.3-8.2)
[2016-12-08] MEDS: TRIAMTERENE-HCTZ 37.5-25MG 1 EACH CAP PO SCH (08:58)
[2016-12-08] MEDS: NADOLOL 20 MG TAB PO SCH (08:59)
[2016-12-08] MEDS: HEPARIN SODIUM,PORCINE 5,000 UNIT/ML 1 ML VIAL SQ SCH ×2 (08:59→20:45)
[2016-12-08] MEDS: PANTOPRAZOLE 40 MG TABLET PO SCH (08:59)
[2016-12-08] MEDS: DEXAMETHASONE SOD PHOSPHATE 4 MG/ML 1 ML VIAL IV SCH ×3 (08:59→23:23)
[2016-12-08] MEDS: DOCUSATE 100 MG CAP PO SCH ×2 (09:00→20:45)
--- NOTE | 2016-12-08 10:44 | P.PN ---
Subjective Principal diagnosis: Metastatic colon cancer Patient complaining of back discomfort. There is discussion about possible discharge at this time. Patient will not require chemotherapy for a while. There is even some thought from the patient that she may refuse chemotherapy after the radiation treatments performed. Objective - Vital Signs Vital signs: Vital Signs Temp 97.9 F 12/08/16 07:00 Pulse 65 12/08/16 07:00 Resp 16 12/08/16 07:00 BP 142/68 12/08/16 07:00 Pulse Ox 95 12/08/16 07:00 Intake & Output 12/07/16 12/08/16 12/08/16 18:59 06:59 18:59 Intake Total 480 720 Balance 480 720 Weight 88.451 kg Intake: Oral 480 720 Other: Voiding Method Toilet Toilet Toilet # Voids 4 1 - Exam Abdomen: Soft, nontender, nondistended - Labs CBC & Chem 7: 12/08/16 07:09 12/08/16 07:09 Labs: Abnormal Lab Results - Last 24 Hours (Table) 12/08/16 12/08/16 Range/Units 07:09 07:09 WBC 20.6 H (3.8-10.6) k/uL Hgb 9.8 L (11.4-16.0) gm/dL Hct 32.9 L (34.0-46.0) % MCV 77.6 L (80.0-100.0) fL MCH 23.1 L (25.0-35.0) pg MCHC 29.8 L (31.0-37.0) g/dL RDW 16.8 H (11.5-15.5) % Neutrophils # 18.5 H (1.3-7.7) k/uL Lymphocytes # 0.5 L (1.0-4.8) k/uL Monocytes # 1.2 H (0-1.0) k/uL Sodium 131 L (137-145) mmol/L Chloride 94 L (98-107) mmol/L BUN 21 H (7-17) mg/dL Creatinine 0.35 L (0.52-1.04) mg/dL AST 77 H (14-36) U/L Alkaline Phosphatase 320 H (38-126) U/L Assessment and Plan (1) Colorectal cancer, stage IV Narrative/Plan: Continue plans for radiation therapy. We'll sign off at this point. Please contact when the patient is closer to requiring Port-A-Cath placement for chemotherapy. Status: Acute
--- NOTE | 2016-12-08 16:46 | P.PN ---
Subjective Patient reports having severe back pain radiating to lower extremities. She is scheduled to work with physical therapy today to evaluate patient if she is good for home with home care. Patient's family is arranging the home setting environment they're trying to work on making a ramp so patient can enter the house. Patient denies any chest pain or shortness breath. Denies any nausea or vomiting. She is now having regular bowel movements. Denies any further diarrhea. Denies difficulty urinating. Objective - Vital Signs Vital signs: Vital Signs Temp 98 F 12/08/16 15:00 Pulse 64 12/08/16 15:00 Resp 16 12/08/16 15:00 BP 116/72 12/08/16 15:00 Pulse Ox 96 12/08/16 15:00 Intake & Output 12/07/16 12/08/16 12/08/16 18:59 06:59 18:59 Intake Total 480 720 Balance 480 720 Weight 88.451 kg Intake: Oral 480 720 Other: Voiding Method Toilet Toilet Toilet # Voids 4 1 2 # Bowel Movements 1 - Exam In general patient is alert and oriented 3 in no apparent distress HEENT head normocephalic and atraumatic Neck is supple no JVD no goiter no lymphadenopathy Chest exam reveals few scatterd rhonchi, no wheezing Cardiac exam reveals regular heart sounds no gallops no murmurs Abdomen is soft nontender no organomegaly Extremity exam reveals no edema no cyanosis or clubbing - Labs CBC & Chem 7: 12/08/16 07:09 12/08/16 07:09 Labs: Abnormal Lab Results - Last 24 Hours (Table) 12/08/16 12/08/16 Range/Units 07:09 07:09 WBC 20.6 H (3.8-10.6) k/uL Hgb 9.8 L (11.4-16.0) gm/dL Hct 32.9 L (34.0-46.0) % MCV 77.6 L (80.0-100.0) fL MCH 23.1 L (25.0-35.0) pg MCHC 29.8 L (31.0-37.0) g/dL RDW 16.8 H (11.5-15.5) % Neutrophils # 18.5 H (1.3-7.7) k/uL Lymphocytes # 0.5 L (1.0-4.8) k/uL Monocytes # 1.2 H (0-1.0) k/uL Sodium 131 L (137-145) mmol/L Chloride 94 L (98-107) mmol/L BUN 21 H (7-17) mg/dL Creatinine 0.35 L (0.52-1.04) mg/dL AST 77 H (14-36) U/L Alkaline Phosphatase 320 H (38-126) U/L Assessment and Plan Plan: 1. 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 Multiple biopsies obtained revealing adenocarcinoma. EGD showed a large hiatal hernia. Liver biopsy positive for adenocarcinoma. Oncology is following the plan is to start chemotherapy and immunotherapy adjuncts after radiation treatment. Discussed with Dr. Tubbs he is recommending a taper of dexamethasone over 2 weeks when discharged. Evaluated by surgical service they'll be placing a port in the near future 2. Acute on chronic back pain involving the cervical and lumbar spine with evidence of pathologic compression fracture of L3 and diffuse metastatic disease to the spine. Patient has seen by spinal service and back brace has been ordered. Awaiting radiation oncologists recommendations when to start radiation treatment. Patient will possibly require kyphoplasty for better pain control. She'll further evaluation with spinal surgery outpatient 3. Metastatic liver disease with mild transaminitis 4. Essential hypertension: Blood pressure not well controlled we'll continue to monitor closely 5. Acute on chronic anemia most likely of chronic disease. Patient received 1 unit of blood transfusion. Would monitor CBC daily. 6. Medical debility: Continue with physical therapy. Patient is to work with physical therapy today to assess if she can be discharged home with home care. At this time awaiting physical therapy recommendations. Patient's family is arranging equipment at home for patient. Awaiting radiation oncologist recommendations when to start radiation treatment. Discussed case with patient and daughters as well as social work and porter sample case awaiting radiation oncology
[2016-12-08] MEDS: ALPRAZolam 0.5 MG TAB PO PRN (17:08)
--- NOTE | 2016-12-08 18:45 | P.PN ---
Subjective Principal diagnosis: leg and back pain Pt seen today in follow up, she continues to struggle with back and LLE pain, she did sit up in chair for a few hours yesterday, she ambulated with walker and assist, she states no fevers, appetite is poor, no nausea or vomiting, she get SOB with exertion, no abd pain, diarrhea or constipation. Objective - Vital Signs Vital signs: Vital Signs Temp 98 F 12/08/16 15:00 Pulse 64 12/08/16 15:00 Resp 16 12/08/16 15:00 BP 116/72 12/08/16 15:00 Pulse Ox 96 12/08/16 15:00 Intake & Output 12/07/16 12/08/16 12/08/16 18:59 06:59 18:59 Intake Total 480 720 Balance 480 720 Weight 88.451 kg Intake: Oral 480 720 Other: Voiding Method Toilet Toilet Toilet Bedpan # Voids 4 1 2 # Bowel Movements 1 - Constitutional General appearance: Present: cooperative, no acute distress, obese - EENT Eyes: Present: normal appearance - Respiratory Respiratory: bilateral: CTA - Cardiovascular Heart sounds: normal: S1, S2 - Peripheral edema leg Peripheral Edema: bilateral: None - Gastrointestinal General gastrointestinal: Present: normal bowel sounds, soft - Neurologic Neurologic: Present: CNII-XII intact - Musculoskeletal Musculoskeletal: Present: generalized weakness - Psychiatric Psychiatric: Present: A&O x's 3, appropriate affect, intact judgment & insight - Labs CBC & Chem 7: 12/08/16 07:09 12/08/16 07:09 Labs: Abnormal Lab Results - Last 24 Hours (Table) 12/08/16 12/08/16 Range/Units 07:09 07:09 WBC 20.6 H (3.8-10.6) k/uL Hgb 9.8 L (11.4-16.0) gm/dL Hct 32.9 L (34.0-46.0) % MCV 77.6 L (80.0-100.0) fL MCH 23.1 L (25.0-35.0) pg MCHC 29.8 L (31.0-37.0) g/dL RDW 16.8 H (11.5-15.5) % Neutrophils # 18.5 H (1.3-7.7) k/uL Lymphocytes # 0.5 L (1.0-4.8) k/uL Monocytes # 1.2 H (0-1.0) k/uL Sodium 131 L (137-145) mmol/L Chloride 94 L (98-107) mmol/L BUN 21 H (7-17) mg/dL Creatinine 0.35 L (0.52-1.04) mg/dL AST 77 H (14-36) U/L Alkaline Phosphatase 320 H (38-126) U/L Assessment and Plan (1) Anemia Narrative/Plan: Microcytic, hypochromic anemia, Hgb stable, no acute intervention Status: Acute (2) Hepatic lesion Status: Acute (3) Lytic bone lesions on xray Narrative/Plan: Ortho Spine has evaluated pt, kyphoplasty is an option but pt has wavered on her decision to proceed. Dr. Tubbs encouraged pt to talk with Ortho PA and get her questions answered as the procedure could certainly alleviate some of her pain and help her functionality. The less pt is able to get around the more difficulty it will be for her to do radiation and be active to maintain performance status. If performance status declines she would not be a candidate for chemotherapy. All pt questions answered. Have asked nursing to contact Ortho Spine to review procedure with pt again and hopefully she can make a decision. Status: Acute (4) Adenocarcinoma of cecum Narrative/Plan: New diagnosis of metastatic disease. Dr. Tubbs has discussed the diagnosis, prognosis and treatment options. Pt requires management of symptomatic bone mets prior to beginning chemotherapy. Pt awaiting port placement which is not urgent at this time. Status: Acute (5) Bone metastases Narrative/Plan: Ortho Spine and Radiation Oncology Status: Acute
[2016-12-08] MEDS: ESCITALOPRAM 10 MG TAB PO SCH (20:45)
[2016-12-09] MEDS: ALPRAZolam 0.5 MG TAB PO PRN ×2 (02:21→16:41)
[2016-12-09] MEDS: HYDROcodone/APAP 10-325MG 1 EACH TAB PO PRN ×3 (06:17→16:41)
[2016-12-09 06:23] LABS: Anisocytosis Slight; Basophils % (A) 0 %; CH 22.9; CHCM 29.3; Eosinophils % (A) 0 %; HCT 34.8 % (34.0-46.0); HDW 4.22; HGB 10.3 gm/dL (11.4-16.0); Hypochromasia Marked; Luc # (Auto) 0.32; Luc % (Auto) 2; Lymphocytes # (A) 0.7 k/uL (1.0-4.8); Lymphocytes % (A) 3 %; MCHC 29.5 g/dL (31.0-37.0); MCV 77.9 fL (80.0-100.0); Mean Platelet Volume 6.5; Microcytosis Slight; Monocytes # (A) 1.4 k/uL (0-1.0); Monocytes % (A) 7 %; Neutrophils # (A) 17.9 k/uL (1.3-7.7); Neutrophils % (A) 88 %; Poikilocytosis Moderate; RBC 4.46 m/uL (3.80-5.40); RDW 16.9 % (11.5-15.5); WBC 20.3 k/uL (3.8-10.6)
[2016-12-09 06:37] LABS: ALT 44 U/L (9-52); AST 80 U/L (14-36); Alkaline Phosphatase 359 U/L (38-126); Anion Gap 8 mmol/L; Blood Urea Nitrogen 19 mg/dL (7-17); Calcium 9.8 mg/dL (8.4-10.2); Carbon Dioxide 30 mmol/L (22-30); Chloride 93 mmol/L (98-107); Glucose 76 mg/dL (74-99); Non-African American GFR(MDRD) >60 (>60 ml/min/1.73 sqM); Potassium 4.5 mmol/L (3.5-5.1); Sodium 131 mmol/L (137-145); Total Bilirubin 0.6 mg/dL (0.2-1.3); Total Protein 6.6 g/dL (6.3-8.2)
[2016-12-09] MEDS: PANTOPRAZOLE 40 MG TABLET PO SCH (09:42)
[2016-12-09] MEDS: DEXAMETHASONE SOD PHOSPHATE 4 MG/ML 1 ML VIAL IV SCH ×3 (09:42→23:47)
[2016-12-09] MEDS: NADOLOL 20 MG TAB PO SCH (09:43)
[2016-12-09] MEDS: TRIAMTERENE-HCTZ 37.5-25MG 1 EACH CAP PO SCH (09:43)
[2016-12-09] MEDS: HEPARIN SODIUM,PORCINE 5,000 UNIT/ML 1 ML VIAL SQ SCH ×2 (09:43→21:04)
[2016-12-09] MEDS: DOCUSATE 100 MG CAP PO SCH ×2 (09:52→21:07)
--- NOTE | 2016-12-09 13:49 | P.PN ---
Subjective Principal diagnosis: L3 pathologic compression fracture deformity Patient is a very pleasant 71-year-old female who is seen and examined at bedside for follow-up evaluation for her acute L3 compression fracture deformity. She recently had a colonoscopy and upper GI scope. 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 She continues to be seen by oncology and medicine. They're currently discussing proceeding forward with radiation treatment. Following radiation they may plan for port placement and start chemotherapy. They are currently planning for possible discharge to rehabilitation with outpatient radiation treatment. In regards to her lumbar spine, she states her symptoms have have not been improving. She continues to have low back pain that feels more difficult to manage lately. She has not been able to get out of bed over the past couple days. Today she is complaining of left lower extremity radiculopathy. She is known to have a spondylolisthesis at L4-5. She is experiencing pain that radiates from the left lateral lumbar spine, down the left posterior lateral thigh, over the left knee, and on anterior lower extremity. She states she has had difficulty with this radicular pattern previously as well. She does admit to some generalized tingling of the bilateral toes that goes up towards her calves. She states she was not previously diagnosed with diabetes that she is aware of. Since being seen and examined, the possibility of kyphoplasty has been discussed further with oncology. Stability of kyphoplasty was discussed with the patient previously at which time she stated she wanted to avoid intervention with a kyphoplasty and biopsy at L3. At that time she was planning to proceed forward with radiation treatment to see if that would help alleviate some of her symptoms. Given her ongoing symptoms and difficulty with getting out of bed and movement of her lumbar spine due to her pain, today she states she is willing to proceed forward with surgical intervention the form of kyphoplasty with hopes that it may provide some relief of her ongoing low back pain. He continues to be seen by oncology and medicine. Further workup is also being done for possible rehab placement. Objective - Vital Signs Vital signs: Vital Signs Temp 98.0 F 12/09/16 07:00 Pulse 64 12/09/16 07:00 Resp 16 12/09/16 07:00 BP 135/72 12/09/16 07:00 Pulse Ox 97 12/09/16 07:00 Intake & Output 0612/09/16 12/09/16 18:59 06:59 18:59 Intake Total 300 Balance 300 Intake: Oral 300 Other: Voiding Method Toilet Toilet Bedpan Bedpan Bedpan # Voids 2 1 # Bowel Movements 1 - Exam Physical Exam: Patient is awake, alert, and oriented 3 Vital signs stable Good chest excursion with deep inspiration and expiration Abdomen soft nontender No signs or symptoms of DVT; no calf pain Some pain with palpation along the midline of the mid to lower lumbar spine Examination of the lumbosacral spine not currently performed as patient is currently on a bedpan Lower extremity strength 5/5 throughout range of motion Extensor hallucis longus, plantarflexion, and dorsiflexion positive sustained bilateral lower extremities Compression stockings and pneumatic cuffs intact bilateral lower extremities Negative straight leg test bilaterally No pain with internal and external rotation of hips bilaterally - Labs CBC & Chem 7: 12/09/16 05:29 12/09/16 05:29 Labs: Abnormal Lab Results - Last 24 Hours (Table) 12/09/16 12/09/16 Range/Units 05:29 05:29 WBC 20.3 H (3.8-10.6) k/uL Hgb 10.3 L (11.4-16.0) gm/dL MCV 77.9 L (80.0-100.0) fL MCH 23.0 L (25.0-35.0) pg MCHC 29.5 L (31.0-37.0) g/dL RDW 16.9 H (11.5-15.5) % Neutrophils # 17.9 H (1.3-7.7) k/uL Lymphocytes # 0.7 L (1.0-4.8) k/uL Monocytes # 1.4 H (0-1.0) k/uL Sodium 131 L (137-145) mmol/L Chloride 93 L (98-107) mmol/L BUN 19 H (7-17) mg/dL Creatinine 0.41 L (0.52-1.04) mg/dL AST 80 H (14-36) U/L Alkaline Phosphatase 359 H (38-126) U/L Assessment and Plan (1) Liver masses Status: Acute (2) Spondylolisthesis, lumbar region Status: Acute (3) Lumbar spinal stenosis Status: Acute (4) Lumbar back pain with radiculopathy affecting left lower extremity Status: Acute (5) L3 vertebral fracture Status: Acute (6) Cecal cancer Status: Acute Plan: Pertinent studies: MRI of the lumbar spine with and without contrast: L3 pathologic compression fracture; some irregularities within the vertebral bodies throughout her lumbar spine with significant involvement of L3; L4-5 spondylolisthesis with spinal canal stenosis Assessment: Acute L3 pathologic compression fracture with no evidence of acute neurologic decline Multiple liver masses Cecal 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 To further discussion with the patient, she feels she is failing conservative treatment. She has not had improvement of her back pain since being admitted to the hospital. She is having significant difficulty with ambulating getting out of bed due to her ongoing low back pain. At this time, we will plan to receive forward with an L3 kyphoplasty with biopsy. Discussed that the surgery may help provide some relief of her ongoing back pain but will is likely not relieve all of her symptoms. I discussed these issues with the patient at length and I answered all of their questions to the best of my ability and the patient understands. I discussed the risk of surgical intervention and alternative treatment options. The risk of surgical intervention was explained to the patient in detail including but not limited to risk of bleeding, risk of infection, risk and need for further surgery, risk of decreased loss of motion of function, malunion, nonunion, hardware failure, nerve damage, paralysis, heart attack, , as well as the fact that surgery may not alleviate her symptoms. I answered all the patient's questions the best of my ability. The patient would like to proceed forward with surgical intervention and will sign informed consent. The proposed surgical intervention will be a kyphoplasty at L3 with biopsy. Surgical intervention be scheduled for tomorrow, 12/10/2016, at approximately 12:30 PM. Patient will become nothing by mouth status at midnight tonight. If she is able to get out of bed today or tries to perform other activities, she should continue to wear her LSO brace while ambulating and doing activities. 2. Hematology oncology is continuing to follow the patient; medicine to continue following the patient; We will plan to have medicine and oncology clear the patient for surgical intervention prior to tomorrow scheduled surgery 3. Continue pain control 4. We will continue to follow patient 5. Patient has been discussed in detail with Dr. Juan Martin and he agrees with this plan Time with Patient: Greater than 30
--- NOTE | 2016-12-09 17:00 | P.PN ---
Subjective Patient reports having severe back pain radiating to lower extremities. She is scheduled to work with physical therapy today to evaluate patient if she is good for home with home care. Patient's family is arranging the home setting environment they're trying to work on making a ramp so patient can enter the house. Patient denies any chest pain or shortness breath. Denies any nausea or vomiting. She is now having regular bowel movements. Denies any further diarrhea. Denies difficulty urinating. Objective - Vital Signs Vital signs: Vital Signs Temp 97.9 F 12/09/16 15:00 Pulse 57 L 12/09/16 15:00 Resp 16 12/09/16 15:00 BP 144/74 12/09/16 15:00 Pulse Ox 97 12/09/16 15:00 Intake & Output 12/08/16 12/09/16 12/09/16 18:59 06:59 18:59 Intake Total 300 Balance 300 Weight 88.451 kg Intake: Oral 300 Other: Voiding Method Toilet Toilet Bedpan Bedpan Bedpan # Voids 2 1 1 # Bowel Movements 1 1 - Exam In general patient is alert and oriented 3 in no apparent distress HEENT head normocephalic and atraumatic Neck is supple no JVD no goiter no lymphadenopathy Chest exam reveals few scatterd rhonchi, no wheezing Cardiac exam reveals regular heart sounds no gallops no murmurs Abdomen is soft nontender no organomegaly Extremity exam reveals no edema no cyanosis or clubbing - Labs CBC & Chem 7: 12/09/16 05:29 12/09/16 05:29 Labs: Abnormal Lab Results - Last 24 Hours (Table) 12/09/16 12/09/16 Range/Units 05:29 05:29 WBC 20.3 H (3.8-10.6) k/uL Hgb 10.3 L (11.4-16.0) gm/dL MCV 77.9 L (80.0-100.0) fL MCH 23.0 L (25.0-35.0) pg MCHC 29.5 L (31.0-37.0) g/dL RDW 16.9 H (11.5-15.5) % Neutrophils # 17.9 H (1.3-7.7) k/uL Lymphocytes # 0.7 L (1.0-4.8) k/uL Monocytes # 1.4 H (0-1.0) k/uL Sodium 131 L (137-145) mmol/L Chloride 93 L (98-107) mmol/L BUN 19 H (7-17) mg/dL Creatinine 0.41 L (0.52-1.04) mg/dL AST 80 H (14-36) U/L Alkaline Phosphatase 359 H (38-126) U/L Assessment and Plan Plan: 1. 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 Multiple biopsies obtained revealing adenocarcinoma. EGD showed a large hiatal hernia. Liver biopsy positive for adenocarcinoma. Oncology is following the plan is to start chemotherapy and immunotherapy adjuncts after radiation treatment. Discussed with Dr. Tubbs he is recommending a taper of dexamethasone over 2 weeks when discharged. Evaluated by surgical service they'll be placing a port in the near future 2. Acute on chronic back pain involving the cervical and lumbar spine with evidence of pathologic compression fracture of L3 and diffuse metastatic disease to the spine. Patient has seen by spinal service and back brace has been ordered. Awaiting radiation oncologists recommendations when to start radiation treatment. Patient will possibly require kyphoplasty for better pain control. She'll further evaluation with spinal surgery outpatient 3. Metastatic liver disease with mild transaminitis 4. Essential hypertension: Blood pressure not well controlled we'll continue to monitor closely 5. Acute on chronic anemia most likely of chronic disease. Patient received 1 unit of blood transfusion. Would monitor CBC daily. 6. Medical debility: Continue with physical therapy. Patient is to work with physical therapy today to assess if she can be discharged home with home care. At this time awaiting physical therapy recommendations. Patient's family is arranging equipment at home for patient. Awaiting radiation oncologist recommendations when to start radiation treatment. Plan is for kyphoplasty tomorrow. Patient is medically stable. There is no medical contraindication for the procedure. Discussed case with patient and daughters as well as social work and rn case manager awaiting radiation oncology
[2016-12-09] MEDS: ESCITALOPRAM 10 MG TAB PO SCH (21:04)
[2016-12-10] MEDS: DEXAMETHASONE SOD PHOSPHATE 4 MG/ML 1 ML VIAL IV SCH ×2 (07:54→17:20)
[2016-12-10 08:09] LABS: INR 1.1 (<1.1); Prothrombin Time 11.4 sec (9.0-12.0)
[2016-12-10 08:20] LABS: ALT 57 U/L (9-52); AST 92 U/L (14-36); Alkaline Phosphatase 397 U/L (38-126); Anion Gap 10 mmol/L; Blood Urea Nitrogen 21 mg/dL (7-17); Calcium 10.2 mg/dL (8.4-10.2); Carbon Dioxide 28 mmol/L (22-30); Chloride 90 mmol/L (98-107); Glucose 94 mg/dL (74-99); Non-African American GFR(MDRD) >60 (>60 ml/min/1.73 sqM); Potassium 4.1 mmol/L (3.5-5.1); Sodium 128 mmol/L (137-145); Total Bilirubin 0.9 mg/dL (0.2-1.3)
[2016-12-10 08:24] LABS: Anisocytosis Slight; Basophils % (A) 0 %; Eosinophils % (A) 0 %; HCT 36.1 % (34.0-46.0); HDW 4.21; Hypochromasia Marked; Luc # (Auto) 0.21; Luc % (Auto) 1; Lymphocytes # (A) 0.5 k/uL (1.0-4.8); Lymphocytes % (A) 3 %; MCH 23.3 pg (25.0-35.0); MCHC 30.4 g/dL (31.0-37.0); MCV 76.6 fL (80.0-100.0); Mean Platelet Volume 7.2; Microcytosis Slight; Monocytes # (A) 0.9 k/uL (0-1.0); Monocytes % (A) 5 %; Neutrophils % (A) 91 %; Poikilocytosis Moderate; RBC 4.72 m/uL (3.80-5.40); RDW 17.4 % (11.5-15.5); WBC 18.7 k/uL (3.8-10.6)
--- NOTE | 2016-12-10 09:17 | P.PN ---
Progress Note - Text Patient is seen and examined today at bedside. She continues complaining of pain in her back and difficulty with certain any sort of ambulation. She feels that her legs are giving out on her and that happened last night again. She has limited mobility due to her pain in her back. On exam her physical findings are essentially unchanged. She has sustained dorsal flexion plantar flexion and EHL intact she has no hyperreflexia. She has no saddle paresthesias. Assessment and plan Metastatic colon cancer L3 pathologic compression fracture Low back pain and inability to mobilize Spondylolisthesis with stenosis L4 5 The patient has a pathologic compression fracture at L3 which is causing her significant debility. She is being treated with hematology oncology and radiation oncology appropriately. The mechanical issues at L3 appeared to be giving her significant mobility issues and she may have benefit with kyphoplasty at that level. We have discussed this at length with her and her daughters. We discussed the risk of occasions alternatives and benefits including the possibility that this may not alleviate her symptoms. We discussed the fact that this is only addressing the acute change at L3 and is not dressed the chronic issues at that she has with stenosis and spondylolisthesis at L4 5 and she understands this. I think that she has some potential making improvement with her overall pain control and mobility with kyphoplasty at L3. We discussed the surgery at length and I answered her questions best my ability and she would like to proceed with surgery for L3 vertebral biopsy and kyphoplasty today. She remains nothing by mouth for now. I discussed the case with Dr. Tubbs and he is in agreement.
[2016-12-10] MEDS: NADOLOL 20 MG TAB PO SCH (10:17)
--- NOTE | 2016-12-10 11:16 | P.PN ---
Subjective Patient still having back pain and neck pain. She is scheduled for kyphoplasty surgery today. She had a fall last night. She is walking with the nurses to the bathroom. Discussed with nursing staff. They report patient slid to the ground onto her legs. There is no hitting her head or lost consciousness. There is no lacerations or any bruising noted on the legs. Patient does report numbness in both legs. She also had one episode of diarrhea small amount last night. She denies any chest pain or shortness of breath. Denies any burning with urination. Objective - Vital Signs Vital signs: Vital Signs Temp 97.6 F 12/10/16 07:00 Pulse 66 12/10/16 07:00 Resp 16 12/10/16 07:00 BP 135/69 12/10/16 07:00 Pulse Ox 98 12/10/16 07:00 Intake & Output 12/09/16 12/10/16 12/10/16 18:59 06:59 18:59 Intake Total 0 Balance 0 Weight 88.451 kg Intake: Oral 0 Other: Voiding Method Bedpan Toilet Toilet Bedpan Bedpan # Voids 1 1 # Bowel Movements 1 - Exam Head normocephalic Neck supple Lungs clear to auscultation bilaterally no wheezing or crackles Heart regular rate and rhythm S1-S2, no rub or gallop Abdomen is soft nontender nondistended positive bowel sounds no hepatosplenomegaly Extremities no edema no lacerations or bruising noted on the legs. Patient's noted sensation on the legs of the hands being cold bilaterally. She is able to move her feet up and down. With strength about 4 out of 5 bilaterally Neuro alert and orientated to 3 - Labs CBC & Chem 7: 12/10/16 07:35 12/10/16 07:35 Labs: Abnormal Lab Results - Last 24 Hours (Table) 12/10/16 12/10/16 Range/Units 07:35 07:35 WBC 18.7 H (3.8-10.6) k/uL Hgb 11.0 L (11.4-16.0) gm/dL MCV 76.6 L (80.0-100.0) fL MCH 23.3 L (25.0-35.0) pg MCHC 30.4 L (31.0-37.0) g/dL RDW 17.4 H (11.5-15.5) % Neutrophils # 17.0 H (1.3-7.7) k/uL Lymphocytes # 0.5 L (1.0-4.8) k/uL Sodium 128 L (137-145) mmol/L Chloride 90 L (98-107) mmol/L BUN 21 H (7-17) mg/dL Creatinine 0.46 L (0.52-1.04) mg/dL AST 92 H (14-36) U/L ALT 57 H (9-52) U/L Alkaline Phosphatase 397 H (38-126) U/L Assessment and Plan Plan: 1. 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 Multiple biopsies obtained revealing adenocarcinoma. EGD showed a large hiatal hernia. Liver biopsy positive for adenocarcinoma. Oncology is following the plan is to start chemotherapy and immunotherapy adjuncts after radiation treatment. Discussed with Dr. Tubbs he is recommending a taper of dexamethasone over 2 weeks when discharged. Evaluated by surgical service they'll be placing a port in the near future 2. Acute on chronic back pain involving the cervical and lumbar spine with evidence of pathologic compression fracture of L3 and diffuse metastatic disease to the spine. Patient has seen by spinal service and back brace has been ordered. Awaiting radiation oncologists recommendations when to start radiation treatment. Patient is scheduled for kyphoplasty today to help better manage her pain control 3. Metastatic liver disease with mild transaminitis 4. Essential hypertension: Blood pressure not well controlled we'll continue to monitor closely 5. Acute on chronic anemia most likely of chronic disease. Patient received 1 unit of blood transfusion. Would monitor CBC daily. 6. Medical debility: Continue with physical therapy. Patient is to work with physical therapy today to assess if she can be discharged home with home care. Awaiting decision about possible ECF placement versus placement at [facility] or patient possibly could undergo radiation treatment. 7. Hyponatremia: Sodium level 128. Place patient on normal saline afterwards cc an hour. Discontinue the Dyazide. Repeat labs in morning I performed an examination of the patient and discussed their management with the physician Handbag Parts Cutter. I have reviewed the Physician Handbag [employer] Cutter's notes and agree with the documented findings and plan of care
[2016-12-10] MEDS ORDERED: LACTATED RINGERS 1,000 ML IV ONE (11:45)
[2016-12-10 11:46] LABS: Glucose,Whole Blood 98 mg/dL (75-99)
[2016-12-10] MEDS ORDERED: ONDANSETRON 4 MG/2 ML VIAL IVP ONE (12:04)
[2016-12-10] MEDS ORDERED: IOHEXOL 180 MG/ML 1 ML ML MISCELLANE ONE (12:44)
[2016-12-10] MEDS ORDERED: LIDOCAINE 1% INJ 10MG/ML (20 ML MDV) ONE (12:44)
[2016-12-10] MEDS ORDERED: fentaNYL (PF) 50 MCG/ML 2 ML AMP ONE (12:44)
[2016-12-10] MEDS ORDERED: PHENYLEPHRINE-0.9% NACL SYG 1 MG/10 ML SYRINGE ONE (12:44)
[2016-12-10] MEDS ORDERED: MIDAZOLAM 2 MG/2 ML VIAL ONE (12:44)
[2016-12-10] MEDS ORDERED: PROPOFOL 10 MG/ML 20 ML VIAL IV ONE (12:44)
[2016-12-10] MEDS ORDERED: SUCCINYLCHOLINE CHLORIDE 100 MG/5 ML SYR IV ONE (12:44)
[2016-12-10] MEDS ORDERED: LIDOCAINE 0.5%-EPI 1:200,000 50 ML VIAL SQ ONE (12:44)
[2016-12-10] MEDS ORDERED: SODIUM CHLORIDE 0.9% 50 ML with ceFAZolin 2,000 MG IV ONE ×2 (13:10)
[2016-12-10] MEDS ORDERED: HYDROcodone/APAP 5-325MG 1 EACH TAB PO PRN (13:44)
--- NOTE | 2016-12-10 13:49 | P.OP ---
Date of Procedure: 12/10/16 Preoperative Diagnosis: L3 pathologic fracture Low back pain Metastatic colon cancer Postoperative Diagnosis: Same Procedure(s) Performed: Implants: Anesthesia: GETA Pathology: other (Core biopsy of L3 sent to pathology) Condition: stable Disposition: PACU Indications for Procedure: Operative Findings: Description of Procedure: BRIEF OPERATIVE NOTE Preoperative Diagnosis: Vertebral compression fracture of L3, pathologic due to metastatic disease Postoperative Diagnosis: Same Procedure: Kyphoplasty of L3 Vertebral body biopsy of L3 Use of biplanar fluoroscopic guidance Surgeon: Dr. Martin Audio Visual Equipment Rental Clerk: None Anesthesia: General anesthesia Estimated blood loss: Less than 10 mL Specimen: Vertebral body biopsy of L3 sent to pathology in formalin Complications: None apparent Components implanted: Bone cement Disposition: To recovery room in good stable condition. OPERATIVE INDICATIONS The patient has been having issues in their back over the past several weeks. The patient has been newly diagnosed with metastatic cancer and was found have pathologic fracture at L3 with diffuse involvement through her spine. The patient has been through conservative treatment with attempted bracing for control of the pain while she is undergoing treatment for her cancer issues. They attempted conservative care with bracing however they're not having any benefit despite brace use. They continue to have significant pain and debility due to their fracture and instability at L3 due to the pathologic fracture. We discussed various treatment options including surgery, and the patient wishes to proceed with surgery We discussed the risk, patient's alternatives and benefits of surgery including but not limited to, risk of bleeding risk of infection, risk of need for further surgery, risk of decreased, loss of motion, loss of function, cement extravasation, nerve damage, paralysis, heart attack, blindness and . OPERATIVE SUMMARY After discussing all the risks, patient alternatives and benefits at length, the patient elected to proceed with surgical intervention, signed informed consent, and presented for their procedure. The patient was seen and examined in the preoperative holding area and the surgical site was marked. The patient was given antibiotics and brought to the operating room. The patient was sedated and intubated by anesthesia in standard fashion. The patient was positioned on to the operating room table in a prone position on the appropriate well-padded and well molded bilateral chest rolls. We were careful to pad any bony prominences and pressure points. We were careful to maintain the patient's cervical spine and good neutral alignment and position throughout. We used 2 C-arm machines to establish biplanar fluoroscopic guidance in AP and lateral positions. We were able to localize the fractures appropriately. The patient was prepped and draped in a normal standard fashion. An appropriate timeout and keystone protocol performed. We were able to proceed with the surgery. The local wound area was infiltrated with local anesthetic. An incision was made over the lateral aspect of the pedicle over the appropriate levels with a small 2 mm stab incision on the left side at L3. Intraoperative fluoroscopy was taken which showed a marker at the appropriate level of L3. With the appropriate level positively confirmed, I was able to position a sharp trocar over the lateral aspect of the pedicle. As able to advance the trocar into the pedicle and into the posterior aspect of vertebral body being careful to avoid penetration cephalad caudad or medially. The trocar was placed appropriately into the posterior aspect of vertebral body at the appropriate levels. This was confirmed with C-arm guidance. With the trocar intact I was then able to take a bone biopsy with a biopsy punch or a bony drill. The biopsy specimen was passed off to be sent to pathology in formalin. I was then able to place the kyphoplasty balloon within the vertebral body. The position was checked on C-arm. I was able to inflate the balloon under low pressure and visualization with C-arm. The balloon was well enclosed within the vertebral body. The cement was prepared. With the cement at appropriate working condition the balloons were deflated and removed. I was able to place bony cement with trocar with the cement delivery device under low pressure. It had good fill within the vertebral body. There is no evidence of any extravasation of the cement posteriorly toward the canal. The cement was well contained at the appropriate levels. There is some small amount of cement extending into the disc space at L2-3 but no posterior extravasationThe cement was allowed to cure appropriately. The trochars removed and final images were taken on C-arm. This showed the cement at the appropriate levels of L3 . We were able to proceed with closure. The wound was cleaned and dried and dressed with the appropriate dressing. The drapes were broken down. The patient was gently rolled back onto their hospital bed being careful to maintain their cervical spine and good neutral alignment and position. They were woken up by anesthesia, extubated, and brought to the recovery room in good stable condition. The patient will be admitted to the hospital for observation and for appropriate postoperative care, medical management and monitoring. We will continue to follow them closely about the postoperative course.
--- NOTE | 2016-12-10 14:13 | FL ---
EXAMINATION TYPE: FL guidance operating room, XR lumbar spine 2 or 3V DATE OF EXAM: 12/10/2016 CLINICAL HISTORY: Metastatic disease to lumbar spine. TECHNIQUE: Fluoroscopy. Limited intraoperative views lumbar spine. COMPARISON: CT cap and MRI lumbar spine November 27, 2016. FINDINGS: Fluoroscopic guidance was provided during kyphoplasty procedure performed by Dr. Adrian. A total of 50 seconds of fluoroscopic time was utilized during the procedure and 2 spot intraopera tive images are acquired. Images acquired show advancement of tube for cement injection into vertebra. IMPRESSION: As Above.
[2016-12-10] MEDS: HYDROcodone/APAP 10-325MG 1 EACH TAB PO PRN ×2 (14:58→19:00)
[2016-12-10] MEDS: DOCUSATE 100 MG CAP PO SCH ×2 (16:49→20:19)
[2016-12-10] MEDS: PANTOPRAZOLE 40 MG TABLET PO SCH (16:49)
[2016-12-10] MEDS: HEPARIN SODIUM,PORCINE 5,000 UNIT/ML 1 ML VIAL SQ SCH ×2 (16:49→20:19)
[2016-12-10] MEDS: SODIUM CHLORIDE 0.9% 1,000 ML IV SCH ×2 (16:55→20:22)
[2016-12-10] MEDS: TRIAMTERENE-HCTZ 37.5-25MG 1 EACH CAP PO SCH (17:24)
[2016-12-10] MEDS: ceFAZolin 2 GM in SODIUM CHLORIDE 0.9% 100 ML IVPB SCH (20:18)
[2016-12-10] MEDS: ESCITALOPRAM 10 MG TAB PO SCH (20:19)
[2016-12-10] MEDS: ALPRAZolam 0.5 MG TAB PO PRN (20:21)
[2016-12-11] MEDS: DEXAMETHASONE SOD PHOSPHATE 4 MG/ML 1 ML VIAL IV SCH ×3 (00:19→16:10)
[2016-12-11] MEDS: HYDROcodone/APAP 10-325MG 1 EACH TAB PO PRN ×4 (00:21→22:16)
[2016-12-11] MEDS: ceFAZolin 2 GM in SODIUM CHLORIDE 0.9% 100 ML IVPB SCH (05:24)
[2016-12-11] MEDS: NADOLOL 20 MG TAB PO SCH (08:03)
[2016-12-11] MEDS: HEPARIN SODIUM,PORCINE 5,000 UNIT/ML 1 ML VIAL SQ SCH ×2 (08:04→22:18)
[2016-12-11] MEDS: PANTOPRAZOLE 40 MG TABLET PO SCH (08:05)
--- NOTE | 2016-12-11 09:08 | P.PN ---
Subjective Principal diagnosis: L3 pathologic compression fracture deformity Patient is a very pleasant 71-year-old female who is seen and examined at bedside for follow-up evaluation for her acute L3 compression fracture deformity. She recently had a colonoscopy and upper GI scope. 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 She continues to be seen by oncology and medicine. They're currently discussing proceeding forward with radiation treatment. Following radiation they may plan for port placement and start chemotherapy. They are currently planning for possible discharge to rehabilitation with outpatient radiation treatment. Yesterday, 12/10/2016, patient underwent a L3 kyphoplasty with biopsy. Following the procedure, she states she has had some improvement of her low back pain. Due to positioning during the case, she has been experiencing some right-sided headaches and right-sided cervical pain. She is in place a soft collar. She states she does have a history of significant headaches. She was unable to eat yesterday due to the symptoms. She has had some improvement today and the symptoms and is hopeful to eat breakfast this morning. She has not been able to get out of bed over the past couple days. She continues to experience left lower extremity radiculopathy. She is known to have a spondylolisthesis at L4-5. She is experiencing pain that radiates from the left lateral lumbar spine, down the left posterior lateral thigh, over the left knee, and on anterior lower extremity. She states she has had difficulty with this radicular pattern previously as well. She does admit to some generalized tingling of the bilateral toes that goes up towards her calves. She states she was not previously diagnosed with diabetes that she is aware of. She states she has not previously taken Neurontin for some control of her lower extremity radiculopathy symptoms. She continues to be seen by oncology and medicine. Further workup is also being done for possible rehab placement. She states at the bedside she is most likely to remain in the hospital over the weekend with possible discharge Wednesday. Objective - Vital Signs Vital signs: Vital Signs Temp 98.4 F 12/11/16 07:00 Pulse 69 12/11/16 07:00 Resp 16 12/11/16 07:00 BP 167/78 12/11/16 07:00 Pulse Ox 94 L 12/11/16 07:00 Intake & Output 12/10/16 12/11/16 12/11/16 18:59 06:59 18:59 Intake Total 400 1200 Output Total 3 Balance 397 1200 Intake: IV 400 1200 Sodium Chloride 0.9% 1, 1000 000 ml @ 100 mls/hr IV . Q10H DIAMODN Rx#:[id number] ceFAZolin 2 gm In Sodium 200 Chloride 0.9% 100 ml @ 100 mls/hr IVPB Q8H DIAMOND Rx#:[id number] Output: Estimated Blood Loss 3 Other: Voiding Method Toilet Bedpan Bedpan # Voids 1 - Exam Physical Exam: Patient is awake, alert, and oriented 3 Vital signs stable Good chest excursion with deep inspiration and expiration Abdomen soft nontender No signs or symptoms of DVT; no calf pain No pain with palpation along the midline of the mid to lower lumbar spine Evidence of a small dressing over the left lateral lumbar spine at the L3 kyphoplasty site Dressing is dry with a small spot of dried blood Lower extremity strength is positive sustained throughout range of motion generally weaker Extensor hallucis longus, plantarflexion, and dorsiflexion positive sustained bilateral lower extremities Compression stockings and pneumatic cuffs intact bilateral lower extremities Negative straight leg test bilaterally No pain with internal and external rotation of hips bilaterally - Labs CBC & Chem 7: 12/10/16 07:35 12/10/16 07:35 Assessment and Plan (1) Liver masses Status: Acute (2) Spondylolisthesis, lumbar region Status: Acute (3) Lumbar spinal stenosis Status: Acute (4) Lumbar back pain with radiculopathy affecting left lower extremity Status: Acute (5) L3 vertebral fracture Status: Acute (6) Cecal cancer Status: Acute Plan: Pertinent studies: MRI of the lumbar spine with and without contrast: L3 pathologic compression fracture; some irregularities within the vertebral bodies throughout her lumbar spine with significant involvement of L3; L4-5 spondylolisthesis with spinal canal stenosis Assessment: Acute L3 pathologic compression fracture with no evidence of acute neurologic decline Status post L3 kyphoplasty with biopsy Multiple liver masses 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 Yesterday the patient underwent L3 kyphoplasty with biopsy. Following the surgical procedure she has having some improvement of her low back pain. She does continue to experience significant left lower extremity radiculopathy and numbness in the bilateral feet. We'll plan to start her on Neurontin 100 mg 3 times a day to see this medication will help provide some relief of her radiculopathy and neuropathy symptoms. She continues to have some improvement in her right-sided headaches and cervical pain. She may continue to wear a soft collar for comfort support as needed. She is encouraged to try to get out of bed and increased mobility with the assistance of physical therapy. She does not have much of an appetite but is also encouraged to try to eat some food for nutrition. She may continue wearing her LSO brace while ambulating doing activities. We discussed from an orthopedic spine standpoint, patient is clear for discharge once cleared by medicine and oncology. 2. Hematology oncology is continuing to follow the patient; medicine to continue following the patient 3. Continue pain control 4. From orthopedic spine stand point, patient is clear for discharge; Following discharge, patient may follow-up with Richie Ramirez PA-C or Dr. Juan Martin at [facility] in approximately 2 weeks for further evaluation 5. Patient has been discussed in detail with Dr. Juan Martin and he agrees with this plan Time with Patient: Less than 30
--- NOTE | 2016-12-11 09:43 | P.PN ---
Subjective Patient status post kyphoplasty to L3. Tolerated surgery well. Back pain has shown some improvement. She is complaining of numbness in both legs. Spinal surgery have ordered Neurontin. Patient still complaining of neck pain. Some improvement with the c-collar. She denies any chest pain or shortness of breath. Denies any nausea or vomiting. Denies any difficulty urinating. Last bowel movement yesterday. Objective - Vital Signs Vital signs: Vital Signs Temp 98.4 F 12/11/16 07:00 Pulse 69 12/11/16 07:00 Resp 16 12/11/16 07:00 BP 167/78 12/11/16 07:00 Pulse Ox 94 L 12/11/16 07:00 Intake & Output 12/10/16 12/11/16 12/11/16 18:59 06:59 18:59 Intake Total 400 1200 Output Total 3 Balance 397 1200 Intake: IV 400 1200 Sodium Chloride 0.9% 1, 1000 000 ml @ 100 mls/hr IV . Q10H DIAMOND Rx#:[id number] ceFAZolin 2 gm In Sodium 200 Chloride 0.9% 100 ml @ 100 mls/hr IVPB Q8H DIAMOND Rx#:[id number] Output: Estimated Blood Loss 3 Other: Voiding Method Toilet Bedpan Bedpan # Voids 1 - Exam Head normocephalic Neck supple Lungs clear to auscultation bilaterally no wheezing or crackles Heart regular rate and rhythm S1-S2, no rub or gallop Abdomen is soft nontender nondistended positive bowel sounds no hepatosplenomegaly Extremities no edema no lacerations or bruising noted on the legs. Patient's noted sensation on the legs of the hands being cold bilaterally. Neuro alert and orientated to 3 - Labs CBC & Chem 7: 12/10/16 07:35 12/10/16 07:35 Assessment and Plan Plan: 1. 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 Multiple biopsies obtained revealing adenocarcinoma. EGD showed a large hiatal hernia. Liver biopsy positive for adenocarcinoma. Oncology is following the plan is to start chemotherapy and immunotherapy adjuncts after radiation treatment. Discussed with Dr. Tubbs he is recommending a taper of dexamethasone over 2 weeks when discharged. Evaluated by surgical service they'll be placing a port in the near future 2. Acute on chronic back pain involving the cervical and lumbar spine with evidence of pathologic compression fracture of L3 and diffuse metastatic disease to the spine. Patient status post kyphoplasty to L3. Pain tolerable. Complaining of numbness in the lower legs. Was started on Neurontin. Case discussed with spinal surgery. Patient is stable for discharge from their standpoint. Patient has seen by spinal service and back brace has been ordered. Awaiting radiation oncologists recommendations when to start radiation treatment. 3. Metastatic liver disease with mild transaminitis 4. Essential hypertension: Blood pressure not well controlled we'll continue to monitor closely 5. Acute on chronic anemia most likely of chronic disease. Patient received 1 unit of blood transfusion. Would monitor CBC daily. 6. Medical debility: We'll have patient evaluated by Dr. Arango for possible inpatient rehab placement so that patient may possibly be on radiation treatment 7. Hyponatremia: Sodium level 128. Place patient on normal saline afterwards 100 cc an hour. Discontinue the Dyazide. Labs this morning are pending 8. Neck pain with evidence of a lytic lesion in the right transverse process of C2. Continue with neck brace. Continue with pain medication and symptomatically treatment Anticipate discharge possibly Wednesday I performed an examination of the patient and discussed their management with the physician Ship Fitter. I have reviewed the Physician Ship Fitter's notes and agree with the documented findings and plan of care
[2016-12-11] MEDS: DOCUSATE 100 MG CAP PO SCH ×2 (10:16→22:23)
[2016-12-11] MEDS: GABAPENTIN 100 MG CAP PO SCH ×3 (10:16→22:17)
[2016-12-11] MEDS: SODIUM CHLORIDE 0.9% 1,000 ML IV SCH ×2 (10:33→18:15)
[2016-12-11 11:03] LABS: Anisocytosis Slight; Basophils % (A) 0 %; CHCM 28.7; Eosinophils # (A) 0.1 k/uL (0-0.7); Eosinophils % (A) 1 %; HCT 35.3 % (34.0-46.0); HDW 3.87; HGB 10.1 gm/dL (11.4-16.0); Hypochromasia Marked; Luc # (Auto) 0.12; Luc % (Auto) 1; Lymphocytes # (A) 0.3 k/uL (1.0-4.8); Lymphocytes % (A) 2 %; MCH 22.9 pg (25.0-35.0); MCHC 28.7 g/dL (31.0-37.0); MCV 79.9 fL (80.0-100.0); Mean Platelet Volume 7.9; Microcytosis Slight; Monocytes # (A) 0.9 k/uL (0-1.0); Monocytes % (A) 4 %; Neutrophils # (A) 18.6 k/uL (1.3-7.7); Neutrophils % (A) 93 %; Poikilocytosis Slight; RBC 4.43 m/uL (3.80-5.40); RDW 17.7 % (11.5-15.5)
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
[2016-12-11 12:49] LABS: ALT 48 U/L (9-52); AST 101 U/L (14-36); Alkaline Phosphatase 334 U/L (38-126); Anion Gap 9 mmol/L; Blood Urea Nitrogen 19 mg/dL (7-17); Calcium 9.6 mg/dL (8.4-10.2); Carbon Dioxide 23 mmol/L (22-30); Chloride 97 mmol/L (98-107); Glucose 166 mg/dL (74-99); Non-African American GFR(MDRD) >60 (>60 ml/min/1.73 sqM); Potassium 4.1 mmol/L (3.5-5.1); Sodium 129 mmol/L (137-145); Total Bilirubin 0.6 mg/dL (0.2-1.3)
[2016-12-11] MEDS: ALPRAZolam 0.5 MG TAB PO PRN (22:17)
[2016-12-11] MEDS: ESCITALOPRAM 10 MG TAB PO SCH (22:17)
[2016-12-12] MEDS: SODIUM CHLORIDE 0.9% 1,000 ML IV SCH ×2 (00:53→21:05)
[2016-12-12] MEDS: DEXAMETHASONE SOD PHOSPHATE 4 MG/ML 1 ML VIAL IV SCH ×3 (00:54→15:32)
[2016-12-12 07:24] LABS: Anisocytosis Slight; Basophils % (A) 0 %; CH 22.8; CHCM 28.2; Eosinophils % (A) 0 %; HCT 33.1 % (34.0-46.0); HDW 3.92; HGB 9.5 gm/dL (11.4-16.0); Hypochromasia Marked; Luc # (Auto) 0.13; Luc % (Auto) 1; Lymphocytes # (A) 0.3 k/uL (1.0-4.8); Lymphocytes % (A) 2 %; MCH 23.2 pg (25.0-35.0); MCHC 28.7 g/dL (31.0-37.0); MCV 80.8 fL (80.0-100.0); Mean Platelet Volume 7.3; Microcytosis Slight; Monocytes # (A) 0.8 k/uL (0-1.0); Monocytes % (A) 5 %; Neutrophils # (A) 15.7 k/uL (1.3-7.7); Neutrophils % (A) 93 %; Poikilocytosis Slight; RDW 17.7 % (11.5-15.5); WBC (Perox) 18.03
[2016-12-12 07:39] LABS: ALT 44 U/L (9-52); AST 93 U/L (14-36); Alkaline Phosphatase 322 U/L (38-126); Anion Gap 7 mmol/L; Blood Urea Nitrogen 17 mg/dL (7-17); Calcium 9.3 mg/dL (8.4-10.2); Carbon Dioxide 24 mmol/L (22-30); Chloride 103 mmol/L (98-107); Glucose 103 mg/dL (74-99); Non-African American GFR(MDRD) >60 (>60 ml/min/1.73 sqM); Potassium 4.1 mmol/L (3.5-5.1); Sodium 134 mmol/L (137-145); Total Bilirubin 0.6 mg/dL (0.2-1.3); Total Protein 5.7 g/dL (6.3-8.2)
[2016-12-12] MEDS: PANTOPRAZOLE 40 MG TABLET PO SCH (08:35)
[2016-12-12] MEDS: GABAPENTIN 100 MG CAP PO SCH ×3 (08:36→21:07)
[2016-12-12] MEDS: NADOLOL 20 MG TAB PO SCH (08:36)
[2016-12-12] MEDS: HEPARIN SODIUM,PORCINE 5,000 UNIT/ML 1 ML VIAL SQ SCH ×2 (08:36→21:07)
[2016-12-12] MEDS: DOCUSATE 100 MG CAP PO SCH ×2 (08:36→21:07)
[2016-12-12] MEDS: ALPRAZolam 0.5 MG TAB PO PRN ×2 (08:37→21:31)
[2016-12-12] MEDS: HYDROcodone/APAP 10-325MG 1 EACH TAB PO PRN ×3 (08:37→21:31)
--- NOTE | 2016-12-12 11:35 | P.PN ---
Subjective Patient is doing well today. Pain is well controlled. Objective - Vital Signs Vital signs: Vital Signs Temp 97.9 F 12/12/16 07:00 Pulse 64 12/12/16 07:00 Resp 18 12/12/16 07:00 BP 152/84 12/12/16 07:00 Pulse Ox 98 12/12/16 07:00 Intake & Output 12/11/16 12/12/16 12/12/16 18:59 06:59 18:59 Intake Total 300 Balance 300 Weight 88.451 kg Intake: Oral 300 Other: Voiding Method Bedpan Bedpan # Voids 2 1 - Exam General: The patient is awake and alert, in no distress Eye: there is normal conjunctiva bilaterally. Neck: The neck is supple, there is no JVD. Cardiovascular: Normal S1-S2, no S3-S4, no murmurs. Respiratory: Lungs clear to auscultation bilaterally Gastrointestinal: Abdomen is soft, nontender Musculoskeletal: There is no pedal edema. Neurological:. Speech is normal. Skin: Skin is warm and dry - Labs CBC & Chem 7: 12/12/16 07:00 12/12/16 07:00 Labs: Abnormal Lab Results - Last 24 Hours (Table) 12/11/16 12/12/16 12/12/16 Range/Units 10:52 07:00 07:00 WBC 17.0 H (3.8-10.6) k/uL Hgb 9.5 L (11.4-16.0) gm/dL Hct 33.1 L (34.0-46.0) % MCH 23.2 L (25.0-35.0) pg MCHC 28.7 L (31.0-37.0) g/dL RDW 17.7 H (11.5-15.5) % Neutrophils # 15.7 H (1.3-7.7) k/uL Lymphocytes # 0.3 L (1.0-4.8) k/uL Sodium 129 L 134 L (137-145) mmol/L Chloride 97 L (98-107) mmol/L BUN 19 H (7-17) mg/dL Creatinine 0.40 L 0.36 L (0.52-1.04) mg/dL Glucose 166 H 103 H (74-99) mg/dL AST 101 H 93 H (14-36) U/L Alkaline Phosphatase 334 H 322 H (38-126) U/L Total Protein 6.0 L 5.7 L (6.3-8.2) g/dL Albumin 3.3 L 2.9 L (3.5-5.0) g/dL Assessment and Plan Plan: 1. 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 Multiple biopsies obtained revealing adenocarcinoma. EGD showed a large hiatal hernia. Liver biopsy positive for adenocarcinoma. Oncology is following the plan is to start chemotherapy and immunotherapy adjuncts after radiation treatment. Discussed with Dr. Tubbs he is recommending a taper of dexamethasone over 2 weeks when discharged. Evaluated by surgical service they'll be placing a port in the near future 2. Acute on chronic back pain involving the cervical and lumbar spine with evidence of pathologic compression fracture of L3 and diffuse metastatic disease to the spine. Patient status post kyphoplasty to L3. Pain tolerable. Complaining of numbness in the lower legs. Was started on Neurontin. Case discussed with spinal surgery. Patient is stable for discharge from their standpoint. Patient has seen by spinal service and back brace has been ordered. Awaiting radiation oncologists recommendations when to start radiation treatment. 3. Metastatic liver disease with mild transaminitis 4. Essential hypertension: Blood pressure not well controlled we'll continue to monitor closely 5. Acute on chronic anemia most likely of chronic disease. Patient received 1 unit of blood transfusion. Would monitor CBC daily. 6. Medical debility: We'll have patient evaluated by Dr. Arango for possible inpatient rehab placement so that patient may possibly be on radiation treatment 7. Hyponatremia: Sodium level 128. Place patient on normal saline afterwards 100 cc an hour. Discontinue the Dyazide. Labs this morning are pending 8. Neck pain with evidence of a lytic lesion in the right transverse process of C2. Continue with neck brace. Continue with pain medication and symptomatically treatment Anticipate discharge possibly Wednesday
[2016-12-12] MEDS: ESCITALOPRAM 10 MG TAB PO SCH (21:07)
[2016-12-13] MEDS: DEXAMETHASONE SOD PHOSPHATE 4 MG/ML 1 ML VIAL IV SCH ×4 (01:04→23:19)
[2016-12-13] MEDS: SODIUM CHLORIDE 0.9% 1,000 ML IV SCH ×2 (01:06→13:00)
[2016-12-13] MEDS: HYDROcodone/APAP 10-325MG 1 EACH TAB PO PRN ×4 (04:51→16:46)
[2016-12-13 07:40] LABS: Anisocytosis Slight; Basophils % (A) 0 %; CH 22.7; CHCM 27.7; Eosinophils % (A) 0 %; HCT 31.5 % (34.0-46.0); HDW 3.87; HGB 8.9 gm/dL (11.4-16.0); Hypochromasia Marked; Luc % (Auto) 1; Lymphocytes # (A) 0.4 k/uL (1.0-4.8); Lymphocytes % (A) 2 %; MCHC 28.1 g/dL (31.0-37.0); MCV 81.8 fL (80.0-100.0); Mean Platelet Volume 6.7; Monocytes # (A) 0.9 k/uL (0-1.0); Monocytes % (A) 5 %; Neutrophils % (A) 91 %; Poikilocytosis Slight; RBC 3.85 m/uL (3.80-5.40); RDW 17.6 % (11.5-15.5); WBC 17.5 k/uL (3.8-10.6); WBC (Perox) 17.98
[2016-12-13 08:08] LABS: ALT 60 U/L (9-52); AST 101 U/L (14-36); Alkaline Phosphatase 313 U/L (38-126); Anion Gap 7 mmol/L; Blood Urea Nitrogen 18 mg/dL (7-17); Calcium 9.2 mg/dL (8.4-10.2); Carbon Dioxide 24 mmol/L (22-30); Chloride 105 mmol/L (98-107); Glucose 90 mg/dL (74-99); Non-African American GFR(MDRD) >60 (>60 ml/min/1.73 sqM); Potassium 4.6 mmol/L (3.5-5.1); Sodium 136 mmol/L (137-145); Total Bilirubin 0.3 mg/dL (0.2-1.3); Total Protein 5.4 g/dL (6.3-8.2)
[2016-12-13] MEDS: ALPRAZolam 0.5 MG TAB PO PRN ×2 (08:25→22:17)
[2016-12-13] MEDS: DOCUSATE 100 MG CAP PO SCH ×2 (08:30→22:13)
[2016-12-13] MEDS: GABAPENTIN 100 MG CAP PO SCH ×3 (08:30→22:13)
[2016-12-13] MEDS: HEPARIN SODIUM,PORCINE 5,000 UNIT/ML 1 ML VIAL SQ SCH ×2 (08:30→22:13)
[2016-12-13] MEDS: PANTOPRAZOLE 40 MG TABLET PO SCH (08:30)
[2016-12-13] MEDS: NADOLOL 20 MG TAB PO SCH (08:31)
--- NOTE | 2016-12-13 13:29 | P.PN ---
Subjective Patient is doing well today. Pain is well controlled. Objective - Vital Signs Vital signs: Vital Signs Temp 98 F 12/13/16 07:00 Pulse 67 12/13/16 07:00 Resp 18 12/13/16 07:00 BP 177/84 12/13/16 07:00 Pulse Ox 97 12/13/16 07:00 Intake & Output 12/12/16 12/13/16 12/13/16 18:59 06:59 18:59 Other: Voiding Method Bedpan # Voids 1 1 - Exam General: The patient is awake and alert, in no distress Eye: there is normal conjunctiva bilaterally. Neck: The neck is supple, there is no JVD. Cardiovascular: Normal S1-S2, no S3-S4, no murmurs. Respiratory: Lungs clear to auscultation bilaterally Gastrointestinal: Abdomen is soft, nontender Musculoskeletal: There is no pedal edema. Neurological:. Speech is normal. Skin: Skin is warm and dry - Labs CBC & Chem 7: 12/13/16 07:17 12/13/16 07:17 Labs: Abnormal Lab Results - Last 24 Hours (Table) 12/13/16 12/13/16 Range/Units 07:17 07:17 WBC 17.5 H (3.8-10.6) k/uL Hgb 8.9 L (11.4-16.0) gm/dL Hct 31.5 L (34.0-46.0) % MCH 23.0 L (25.0-35.0) pg MCHC 28.1 L (31.0-37.0) g/dL RDW 17.6 H (11.5-15.5) % Neutrophils # 16.0 H (1.3-7.7) k/uL Lymphocytes # 0.4 L (1.0-4.8) k/uL Sodium 136 L (137-145) mmol/L BUN 18 H (7-17) mg/dL Creatinine 0.40 L (0.52-1.04) mg/dL AST 101 H (14-36) U/L ALT 60 H (9-52) U/L Alkaline Phosphatase 313 H (38-126) U/L Total Protein 5.4 L (6.3-8.2) g/dL Albumin 2.8 L (3.5-5.0) g/dL Assessment and Plan Plan: 1. 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 Multiple biopsies obtained revealing adenocarcinoma. EGD showed a large hiatal hernia. Liver biopsy positive for adenocarcinoma. Oncology is following the plan is to start chemotherapy and immunotherapy adjuncts after radiation treatment. Discussed with Dr. Tubbs he is recommending a taper of dexamethasone over 2 weeks when discharged. Evaluated by surgical service they'll be placing a port in the near future 2. Acute on chronic back pain involving the cervical and lumbar spine with evidence of pathologic compression fracture of L3 and diffuse metastatic disease to the spine. Patient status post kyphoplasty to L3. Pain tolerable. Complaining of numbness in the lower legs. Was started on Neurontin. Case discussed with spinal surgery. Patient is stable for discharge from their standpoint. Patient has seen by spinal service and back brace has been ordered. Awaiting radiation oncologists recommendations when to start radiation treatment. 3. Metastatic liver disease with mild transaminitis 4. Essential hypertension: Blood pressure not well controlled we'll continue to monitor closely 5. Acute on chronic anemia most likely of chronic disease. Patient received 1 unit of blood transfusion. Would monitor CBC daily. 6. Medical debility: We'll have patient evaluated by Dr. Arango for possible inpatient rehab placement so that patient may possibly be on radiation treatment 7. Hyponatremia: Sodium level 128. Place patient on normal saline afterwards 100 cc an hour. Discontinue the Dyazide. Labs this morning are pending 8. Neck pain with evidence of a lytic lesion in the right transverse process of C2. Continue with neck brace. Continue with pain medication and symptomatically treatment Anticipate discharge possibly Wednesday
[2016-12-13] MEDS: ESCITALOPRAM 10 MG TAB PO SCH (22:13)
[2016-12-14] MEDS: HYDROcodone/APAP 10-325MG 1 EACH TAB PO PRN ×3 (05:04→14:29)
[2016-12-14 08:02] LABS: Anisocytosis Slight; Basophils % (A) 0 %; CH 23.3; CHCM 28.4; Eosinophils % (A) 0 %; HCT 31.4 % (34.0-46.0); HDW 3.91; Hypochromasia Marked; Luc # (Auto) 0.15; Luc % (Auto) 1; Lymphocytes # (A) 0.4 k/uL (1.0-4.8); Lymphocytes % (A) 3 %; MCH 23.4 pg (25.0-35.0); MCHC 28.6 g/dL (31.0-37.0); MCV 81.7 fL (80.0-100.0); Mean Platelet Volume 7.7; Monocytes # (A) 0.8 k/uL (0-1.0); Monocytes % (A) 5 %; Neutrophils # (A) 16.4 k/uL (1.3-7.7); Neutrophils % (A) 92 %; Poikilocytosis Slight; RBC 3.84 m/uL (3.80-5.40); RDW 18.1 % (11.5-15.5); WBC 17.9 k/uL (3.8-10.6); WBC (Perox) 18.23
[2016-12-14 08:15] LABS: ALT 60 U/L (9-52); AST 97 U/L (14-36); Alkaline Phosphatase 332 U/L (38-126); Anion Gap 8 mmol/L; Blood Urea Nitrogen 18 mg/dL (7-17); Calcium 9.4 mg/dL (8.4-10.2); Carbon Dioxide 25 mmol/L (22-30); Chloride 102 mmol/L (98-107); Glucose 98 mg/dL (74-99); Non-African American GFR(MDRD) >60 (>60 ml/min/1.73 sqM); Potassium 4.1 mmol/L (3.5-5.1); Sodium 135 mmol/L (137-145); Total Bilirubin 0.5 mg/dL (0.2-1.3); Total Protein 5.7 g/dL (6.3-8.2)
[2016-12-14] MEDS: PANTOPRAZOLE 40 MG TABLET PO SCH (08:21)
[2016-12-14] MEDS: DOCUSATE 100 MG CAP PO SCH ×2 (08:22→23:30)
[2016-12-14] MEDS: DEXAMETHASONE SOD PHOSPHATE 4 MG/ML 1 ML VIAL IV SCH (08:22)
[2016-12-14] MEDS: GABAPENTIN 100 MG CAP PO SCH ×3 (08:22→23:30)
[2016-12-14] MEDS: HEPARIN SODIUM,PORCINE 5,000 UNIT/ML 1 ML VIAL SQ SCH (08:22)
[2016-12-14] MEDS: NADOLOL 20 MG TAB PO SCH (08:22)
--- NOTE | 2016-12-14 13:23 | P.PN ---
Subjective Patient still complaining of some back pain with leg pain and numbness in the legs. She's working with physical therapy. However she is requiring 2-3. A sister. We're awaiting Dr. Arango evaluation for possible inpatient rehab. She denies any chest pain or shortness of breath. Denies any nausea or vomiting. Reports having a bowel movement. Denies any difficulty urinating. Objective - Vital Signs Vital signs: Vital Signs Temp 97.5 F L 12/14/16 07:00 Pulse 63 12/14/16 11:14 Resp 18 12/14/16 07:00 BP 134/76 12/14/16 11:14 Pulse Ox 91 L 12/14/16 07:00 Intake & Output 12/13/16 12/14/16 12/14/16 18:59 06:59 18:59 Intake Total 580 Balance 580 Intake: Oral 580 Other: Voiding Method Bedpan Bedpan # Voids 3 3 1 # Bowel Movements 1 - Exam Head normocephalic Neck supple Lungs clear to auscultation bilaterally no wheezing or crackles Heart regular rate and rhythm S1-S2, no rub or gallop Abdomen is soft nontender nondistended positive bowel sounds no hepatosplenomegaly Extremities no edema Neuro alert and orientated to 3 - Labs CBC & Chem 7: 12/14/16 07:30 12/14/16 07:30 Labs: Abnormal Lab Results - Last 24 Hours (Table) 12/14/16 12/14/16 Range/Units 07:30 07:30 WBC 17.9 H (3.8-10.6) k/uL Hgb 9.0 L (11.4-16.0) gm/dL Hct 31.4 L (34.0-46.0) % MCH 23.4 L (25.0-35.0) pg MCHC 28.6 L (31.0-37.0) g/dL RDW 18.1 H (11.5-15.5) % Neutrophils # 16.4 H (1.3-7.7) k/uL Lymphocytes # 0.4 L (1.0-4.8) k/uL Sodium 135 L (137-145) mmol/L BUN 18 H (7-17) mg/dL Creatinine 0.33 L (0.52-1.04) mg/dL AST 97 H (14-36) U/L ALT 60 H (9-52) U/L Alkaline Phosphatase 332 H (38-126) U/L Total Protein 5.7 L (6.3-8.2) g/dL Albumin 3.1 L (3.5-5.0) g/dL Assessment and Plan Plan: 1. 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 Multiple biopsies obtained revealing adenocarcinoma. EGD showed a large hiatal hernia. Liver biopsy positive for adenocarcinoma. Oncology is following the plan is to start chemotherapy and immunotherapy adjuncts after radiation treatment. Discussed with Dr. Tubbs he is recommending a taper of dexamethasone over 2 weeks when discharged. Evaluated by surgical service they'll be placing a port in the near future 2. Acute on chronic back pain involving the cervical and lumbar spine with evidence of pathologic compression fracture of L3 and diffuse metastatic disease to the spine. Patient status post kyphoplasty to L3. Pain tolerable. Complaining of numbness in the lower legs. Was started on Neurontin. Case discussed with spinal surgery. Patient is stable for discharge from their standpoint. Patient has seen by spinal service and back brace has been ordered. Awaiting radiation oncologists recommendations when to start radiation treatment. 3. Metastatic liver disease with mild transaminitis 4. Essential hypertension: Blood pressure not well controlled we'll continue to monitor closely 5. Acute on chronic anemia most likely of chronic disease. Patient received 1 unit of blood transfusion. Would monitor CBC daily. 6. Medical debility: We'll have patient evaluated by Dr. Arango for possible inpatient rehab placement so that patient may possibly be on radiation treatment 7. Hyponatremia: Sodium level 128. Place patient on normal saline afterwards 100 cc an hour. Discontinue the Dyazide. Labs this morning are pending 8. Neck pain with evidence of a lytic lesion in the right transverse process of C2. Continue with neck brace. Continue with pain medication and symptomatically treatment Awaiting evaluation by Dr. Arango for possible inpatient rehab. I performed an examination of the patient and discussed their management with the physician Braille Proofreader. I have reviewed the Physician Braille Proofreader's notes and agree with the documented findings and plan of care
--- NOTE | 2016-12-14 13:39 | P.PN ---
Subjective Principal diagnosis: L3 pathologic compression fracture deformity Patient is a very pleasant 71-year-old female who is seen and examined at bedside for follow-up evaluation for her acute L3 compression fracture deformity. She recently had a colonoscopy and upper GI scope. 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 She continues to be seen by oncology and medicine. They're currently discussing proceeding forward with radiation treatment. Following radiation they may plan for port placement and start chemotherapy. They are currently planning for possible discharge to rehabilitation with outpatient radiation treatment. States she is currently waiting for reevaluation by Dr. Arango to see if she qualifies for inpatient rehab. She may be discharged today or tomorrow. She recently underwent L3 kyphoplasty with biopsy on 12/10/2016. She continues to have some improvement of her low back pain. She does continues to experience left lower extremity radiculopathy. She is known to have a spondylolisthesis at L4-5. She is experiencing pain that radiates from the left lateral lumbar spine, down the left posterior lateral thigh, over the left knee, and on anterior lower extremity. She's been started on Neurontin 100 mg 3 times daily. Since starting this medication she states her left lower extremity radiculopathy symptoms continue to be present but to a lesser degree. She states she has had difficulty with this radicular pattern previously as well. She does admit to some generalized tingling of the bilateral toes that goes up towards her calves. She states she was not previously diagnosed with diabetes that she is aware of. She continues to be seen by oncology and medicine. Today she is sitting comfortably in a bedside chair without difficulty. She has been able to eat and is currently eating lunch without difficulty. Objective - Vital Signs Vital signs: Vital Signs Temp 97.5 F L 12/14/16 07:00 Pulse 63 12/14/16 11:14 Resp 18 12/14/16 07:00 BP 134/76 12/14/16 11:14 Pulse Ox 91 L 12/14/16 07:00 Intake & Output 12/13/16 12/14/16 12/14/16 18:59 06:59 18:59 Intake Total 580 Balance 580 Intake: Oral 580 Other: Voiding Method Bedpan Bedpan # Voids 3 3 1 # Bowel Movements 1 - Exam Physical Exam: Patient is awake, alert, and oriented 3 Vital signs stable Good chest excursion with deep inspiration and expiration Abdomen soft nontender No signs or symptoms of DVT; no calf pain No pain with palpation along the midline of the mid to lower lumbar spine L3 kyphoplasty site appears to be healing appropriately Lower extremity strength is positive sustained throughout range of motion generally weaker Extensor hallucis longus, plantarflexion, and dorsiflexion positive sustained bilateral lower extremities Compression stockings and pneumatic cuffs not currently intact bilateral lower extremities Some generalized lower extremity swelling bilaterally without pitting edema Negative straight leg test bilaterally No pain with internal and external rotation of hips bilaterally - Labs CBC & Chem 7: 12/14/16 07:30 12/14/16 07:30 Labs: Abnormal Lab Results - Last 24 Hours (Table) 12/14/16 12/14/16 Range/Units 07:30 07:30 WBC 17.9 H (3.8-10.6) k/uL Hgb 9.0 L (11.4-16.0) gm/dL Hct 31.4 L (34.0-46.0) % MCH 23.4 L (25.0-35.0) pg MCHC 28.6 L (31.0-37.0) g/dL RDW 18.1 H (11.5-15.5) % Neutrophils # 16.4 H (1.3-7.7) k/uL Lymphocytes # 0.4 L (1.0-4.8) k/uL Sodium 135 L (137-145) mmol/L BUN 18 H (7-17) mg/dL Creatinine 0.33 L (0.52-1.04) mg/dL AST 97 H (14-36) U/L ALT 60 H (9-52) U/L Alkaline Phosphatase 332 H (38-126) U/L Total Protein 5.7 L (6.3-8.2) g/dL Albumin 3.1 L (3.5-5.0) g/dL Assessment and Plan (1) Liver masses Status: Acute (2) Spondylolisthesis, lumbar region Status: Acute (3) Lumbar spinal stenosis Status: Acute (4) Lumbar back pain with radiculopathy affecting left lower extremity Status: Acute (5) L3 vertebral fracture Status: Acute (6) Cecal cancer Status: Acute Plan: Pertinent studies: MRI of the lumbar spine with and without contrast: L3 pathologic compression fracture; some irregularities within the vertebral bodies throughout her lumbar spine with significant involvement of L3; L4-5 spondylolisthesis with spinal canal stenosis Assessment: Acute L3 pathologic compression fracture with no evidence of acute neurologic decline Status post L3 kyphoplasty with biopsy Multiple liver masses 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 On 12/10/2016, the patient underwent L3 kyphoplasty with biopsy. Following the surgical procedure she seems to have some improvement of her low back pain. She does continue to experience left lower extremity radiculopathy and numbness in the bilateral feet. She feels she has had some improvement of her symptoms since being started on Neurontin 100 mg 3 times a day. She'll be given a prescription for Neurontin 100 mg 3 times per day at discharge. We may plan to increase this dosage at her first follow-up appointment depending how she is tolerating this medicine. She is encouraged to try to get out of bed and increased mobility with the assistance of physical therapy. She may continue wearing her LSO brace while ambulating doing activities. We discussed from an orthopedic spine standpoint, patient is clear for discharge once cleared by medicine and oncology. 2. Hematology oncology is continuing to follow the patient; medicine to continue following the patient 3. Continue pain control 4. From orthopedic spine stand point, patient is clear for discharge; Following discharge, patient may follow-up with Richie Ramirez PA-C or Dr. Juan Martin at [facility] in approximately 2 weeks for further evaluation 5. Patient has been discussed in detail with Dr. Juan Martin and he agrees with this plan Time with Patient: Less than 30
--- NOTE | 2016-12-14 14:27 | P.DS ---
Providers Date of admission: 11/26/16 16:14 Expected date of discharge: 12/14/16 Attending physician: George Adrian Consults: 11/26/16 16:14 Consult Physician Routine Consulting Provider: Faustino Tubbs Consult Reason/Comments: anemia, pathologic fracture Do you want consulting provider notified?: Yes 11/27/16 15:50 Consult Physician Routine Consulting Provider: Darrian Martin Consult Reason/Comments: pathological fracture lumbar spine Do you want consulting provider notified?: Yes, Notify in am 12/01/16 18:58 Consult Physician Routine Consulting Provider: Jose David Benitez Consult Reason/Comments: Bone metastases, cancer related pain Do you want consulting provider notified?: Yes 12/04/16 23:42 Consult Physician Routine Consulting Provider: Al Vargas Consult Reason/Comments: Port placement Do you want consulting provider notified?: Yes 12/11/16 09:37 Consult Physician Routine Consulting Provider: Gregory Arango Consult Reason/Comments: inpatient rehab Do you want consulting provider notified?: Yes Primary care physician: Anthony Gutierrez [facility] Course: Discharge diagnosis 1. 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 Multiple biopsies obtained revealing adenocarcinoma. EGD showed a large hiatal hernia. Liver biopsy positive for adenocarcinoma. Oncology is following the plan is to start chemotherapy and immunotherapy adjuncts after radiation treatment. Discussed with Dr. Tubbs he is recommending a taper of dexamethasone . Evaluated by surgical service they'll be placing a port in the near future 2. Acute on chronic back pain involving the cervical and lumbar spine with evidence of pathologic compression fracture of L3 and diffuse metastatic disease to the spine. Patient status post kyphoplasty to L3. Pain tolerable. Complaining of numbness in the lower legs. Was started on Neurontin. Case discussed with spinal surgery. Patient is stable for discharge from their standpoint. Patient has seen by spinal service and back brace has been ordered. Awaiting radiation oncologists recommendations when to start radiation treatment. 3. Metastatic liver disease with mild transaminitis 4. Essential hypertension: Lisinopril has been added to help with blood pressure control 5. Acute on chronic anemia most likely of chronic disease. Patient received 1 unit of blood transfusion. Would monitor CBC daily. 6. Medical debility: We'll have patient evaluated by Dr. Arango for possible inpatient rehab placement so that patient may possibly be on radiation treatment 7. Hyponatremia: Sodium level 135. Sodium level has shown improvement. Patient's Dyazide was discontinued during this admission. 8. Neck pain with evidence of a lytic lesion in the right transverse process of C2. Continue with neck brace. Continue with pain medication and symptomatically treatment Hospital course This is a 71-year-old female, patient of Dr. Bravo. She has a known past medical history of hypertension and iron deficiency anemia. Patient presents to the emergency room with complaints of generalized weakness. She's also been having some neck pain that radiates up into her head and stabbing pain behind her right eye. Also complains of lower lumbar back pain. Patient has had difficulty with walking and started to have falls. Yesterday she fell and hit her head. No loss of consciousness. Since she has been feeling worse she came into the emergency room for further evaluation and treatment. Patient's daughter is also at bedside contributing to patient's history. Says that her mother has been having symptoms since about September. They've also noted about a 20 pound weight loss. She is also been having severe nausea and decrease in appetite. She would complains also of having chills. Patient presented to the emergency room with a hemoglobin of 7. She received 1 unit of blood. She has no active bleeding. Stool for occult blood was negative. Computed tomography scan of the brain and neck and lumbar spine were completed. Lumbar CAT scan showed metastatic disease of the liver, pathological L3 compression fracture with epidural soft tissue as well as paraspinal soft tissue. Heterogenicity of L1 may reflect additional lesion. CT of the cervical spine showed no evidence of any acute fracture or subluxation of the cervical spine. Did reveal a lytic lesion involving the right transverse process of C2. The computed tomography scan of the brain had shown age-related atrophic and chronic small vessel ischemic changes without acute intracranial process. Patient had a computed tomography scan of the chest abdomen and pelvis showing extensive abnormality density in the liver consistent with metastatic disease. Mild compression fracture of L3 which is probably pathologic and tumor. Possible mass lesion involving the ileocecal valve and the tip of the cecum. Colonoscopy is recommended. Possible mass lesion with wall thickening involving the posterior gastric fundus with hiatal hernia. Patient did undergo EGD and colonoscopy revealing a large ulcerated cecal mass involving the entire cecum and a low cecal valve with no obstruction. Biopsies of both the liver and biopsies during the colonoscopy completed were positive for adenocarcinoma. Patient has been evaluated by oncology and radiation oncologist. Also evaluated by surgical service and the recommending a port to be placed in the near future for chemotherapy. Patient had kyphoplasty completed on L3 to help further with pain control. Neurontin was also added due to the numbness she is complaining of in her legs. Patient has been accepted at the [facility] under Dr. Bhatti. And the plan is to be able to start radiation treatment when she goes over there. Patient will not be starting chemotherapy until after radiation treatment. Patient is currently medically stable for discharge. Lisinopril was added to help with better blood pressure control. Oncology is recommending a dexamethasone taper. Patient is medically stable for discharge. Please refer to chart for any further details. Please note that the discharge most likely will not occur until tomorrow we are still waiting on further sure insurance authorization Patient Condition at Discharge: Stable Plan - Discharge Summary New Discharge Prescriptions: New Gabapentin [Neurontin] 100 mg PO TID #45 cap Docusate [Colace] 100 mg PO BID #60 cap Escitalopram [Lexapro] 10 mg PO HS #30 tab HYDROcodone/APAP 10-325MG [[place] 10-325] 1 each PO Q4H PRN #60 tab PRN Reason: Pain Lisinopril [Zestril] 5 mg PO HS #30 tab Dexamethasone 4 mg PO DIRECTED #42 tablet Continue Nadolol [Corgard] 40 mg PO DAILY Omeprazole [PriLOSEC] 20 mg PO DAILY ALPRAZolam [Xanax] 0.5 mg PO TID PRN #90 PRN Reason: Anxiety Discontinued Triamterene/Hydrochlorothiazid [Dyazide 37.5-25 Capsule] 1 cap PO DAILY Ibuprofen [Motrin] 800 mg PO TID PRN PRN Reason: Pain Discharge Medication List Nadolol [Corgard] 40 mg PO DAILY 11/26/16 [History] Omeprazole [PriLOSEC] 20 mg PO DAILY 11/26/16 [History] ALPRAZolam [Xanax] 0.5 mg PO TID PRN #90 12/14/16 [Rx] Dexamethasone 4 mg PO DIRECTED #42 tablet 12/14/16 [Rx] Docusate [Colace] 100 mg PO BID #60 cap 12/14/16 [Rx] Escitalopram [Lexapro] 10 mg PO HS #30 tab 12/14/16 [Rx] Gabapentin [Neurontin] 100 mg PO TID #45 cap 12/14/16 [Rx] HYDROcodone/APAP 10-325MG [[place] 10-325] 1 each PO Q4H PRN #60 tab 12/14/16 [Rx] Lisinopril [Zestril] 5 mg PO HS #30 tab 12/14/16 [Rx] Follow up Appointment(s)/Referral(s): Richie Ramirez, ADAM [PHYSICIAN CLOCK ASSEMBLER] - 2 Weeks (Patient may follow-up with Richie Ramirez PA-C or Dr. Juan Martin at [facility] in 2-3 weeks following discharge. ) Anthony Rodriguez MD [Primary Care Provider] - 1 Week [facility] Visiting Nurse, [NON-STAFF] - 1 Week Activity/Diet/Wound Care/Special Instructions: 1. Patient may wear LSO brace for comfort and support while sitting upright at greater than 45, while working with therapy, and while ambulating; patient does not have to wear the brace while lying in bed or bathing 2. Patient should avoid excessive bending, twisting, and lifting; no lifting greater than 10 pounds Discharge diet cardiac Patient will need radiation treatment arranged by Dr. Jiang at [facility] rehabilitation Transfer patient to [facility] tomorrow (12/15/16) Discharge Disposition: OTHER INSTITUTION NOT DEFINED
[2016-12-14] MEDS: ALPRAZolam 0.5 MG TAB PO PRN (14:29)
[2016-12-14] MEDS: DEXAMETHASONE 4 MG TAB PO SCH ×2 (16:41→23:30)
[2016-12-14 18:54] LABS: Glucose,Whole Blood 101 mg/dL (75-99)
[2016-12-14 19:23] LABS: Glucose,Whole Blood 92 mg/dL (75-99)
[2016-12-14 19:32] LABS: Anisocytosis Slight; Basophils % (A) 0 %; CH 22.9; CHCM 28.5; Eosinophils % (A) 0 %; HCT 30.5 % (34.0-46.0); HDW 3.94; Hypochromasia Marked; Luc # (Auto) 0.25; Luc % (Auto) 1; Lymphocytes # (A) 0.7 k/uL (1.0-4.8); Lymphocytes % (A) 3 %; MCH 23.6 pg (25.0-35.0); MCHC 29.4 g/dL (31.0-37.0); MCV 80.2 fL (80.0-100.0); Mean Platelet Volume 7.3; Microcytosis Slight; Monocytes # (A) 1.2 k/uL (0-1.0); Monocytes % (A) 6 %; Neutrophils # (A) 17.8 k/uL (1.3-7.7); Neutrophils % (A) 89 %; Poikilocytosis Slight; RDW 18.2 % (11.5-15.5); WBC (Perox) 19.75
[2016-12-14 19:35] LABS: Glucose,Whole Blood 99 mg/dL (75-99)
[2016-12-14 19:41] LABS: Anion Gap 5 mmol/L; Blood Urea Nitrogen 19 mg/dL (7-17); Calcium 9.4 mg/dL (8.4-10.2); Carbon Dioxide 29 mmol/L (22-30); Chloride 99 mmol/L (98-107); Glucose 90 mg/dL (74-99); Magnesium 1.9 mg/dL (1.6-2.3); Non-African American GFR(MDRD) >60 (>60 ml/min/1.73 sqM); Phosphorous 2.1 mg/dL (2.5-4.5); Potassium 3.9 mmol/L (3.5-5.1); Sodium 133 mmol/L (137-145)
[2016-12-14 19:56] LABS: Partial Thromboplastin Time 27.5 sec (22.0-30.0); Prothrombin Time 10.4 sec (9.0-12.0)
[2016-12-14] MEDS: SODIUM CHLORIDE 0.9% 1,000 ML IV SCH (20:00)
[2016-12-14] MEDS: ESCITALOPRAM 10 MG TAB PO SCH (23:29)
[2016-12-15 02:01] LABS: Anisocytosis Slight; CH 23.1; CHCM 29.5; HCT 26.1 % (34.0-46.0); HGB 7.8 gm/dL (11.4-16.0); Hypochromasia Marked; MCH 23.4 pg (25.0-35.0); MCV 78.2 fL (80.0-100.0); Mean Platelet Volume 7.2; Microcytosis Slight; Poikilocytosis Moderate; RBC 3.34 m/uL (3.80-5.40); RDW 18.3 % (11.5-15.5); WBC 20.8 k/uL (3.8-10.6)
[2016-12-15] MEDS: HYDROcodone/APAP 10-325MG 1 EACH TAB PO PRN ×4 (03:03→22:04)
[2016-12-15] MEDS: ALPRAZolam 0.5 MG TAB PO PRN ×2 (03:04→22:01)
[2016-12-15 08:06] LABS: ALT 56 U/L (9-52); AST 95 U/L (14-36); Alkaline Phosphatase 297 U/L (38-126); Anion Gap 5 mmol/L; Blood Urea Nitrogen 16 mg/dL (7-17); Calcium 9.1 mg/dL (8.4-10.2); Carbon Dioxide 26 mmol/L (22-30); Chloride 102 mmol/L (98-107); Glucose 78 mg/dL (74-99); Magnesium 1.8 mg/dL (1.6-2.3); Non-African American GFR(MDRD) >60 (>60 ml/min/1.73 sqM); Phosphorous 3.1 mg/dL (2.5-4.5); Potassium 4.3 mmol/L (3.5-5.1); Sodium 133 mmol/L (137-145); Total Bilirubin 1.4 mg/dL (0.2-1.3); Total Protein 5.5 g/dL (6.3-8.2)
[2016-12-15 08:07] LABS: Anisocytosis Slight; Basophils % (A) 0 %; CH 24.5; CHCM 30.5; Eosinophils % (A) 0 %; HCT 31.7 % (34.0-46.0); HDW 4.57; Hypochromasia Marked; Luc # (Auto) 0.15; Luc % (Auto) 1; Lymphocytes # (A) 0.4 k/uL (1.0-4.8); Lymphocytes % (A) 2 %; MCH 24.1 pg (25.0-35.0); MCHC 30.1 g/dL (31.0-37.0); MCV 79.8 fL (80.0-100.0); Mean Platelet Volume 7.6; Microcytosis Slight; Monocytes # (A) 0.8 k/uL (0-1.0); Monocytes % (A) 5 %; Neutrophils # (A) 16.2 k/uL (1.3-7.7); Neutrophils % (A) 92 %; Poikilocytosis Moderate; RBC 3.98 m/uL (3.80-5.40); RDW 18.4 % (11.5-15.5); WBC 17.5 k/uL (3.8-10.6); WBC (Perox) 18.06
[2016-12-15 08:15] LABS: HGB 9.6 gm/dL (11.4-16.0)
[2016-12-15] MEDS: SODIUM CHLORIDE 0.9% 1,000 ML IV SCH ×2 (09:13→21:07)
[2016-12-15] MEDS: GABAPENTIN 100 MG CAP PO SCH ×3 (09:13→21:07)
[2016-12-15] MEDS: DEXAMETHASONE 4 MG TAB PO SCH ×3 (09:13→21:08)
[2016-12-15] MEDS: PANTOPRAZOLE 40 MG TABLET PO SCH (09:38)
[2016-12-15] MEDS: DOCUSATE 100 MG CAP PO SCH ×2 (09:38→21:07)
--- NOTE | 2016-12-15 10:13 | P.PN ---
Subjective Principal diagnosis: Rectal bleeding 71-year-old female reevaluated in 2 weeks ago in regards to suspected metastatic disease to the liver and bone with abnormal CT findings for possible colonic mass underwent EGD colonoscopy with findings of a circumferential cecal mass biopsies consistent with adenocarcinoma, EGD unremarkable. Asked to see patient today in regards to 3 blood-tinged bowel movements last night. Status post kyphoplasty with bone biopsy 5 days ago. Hemoglobin yesterday decreased to 7.8. She received 1 unit of blood hemoglobin this morning is 9.6. BUN 16. Creatinine 0.3. Bowel movement this morning brown colored in nature. Mild abdominal discomfort nothing severe. Denies hematemesis. Afebrile. Discharge planning for chemoradiation in progress. Heparin subcu discontinued. No aspirin or NSAIDs. Objective - Vital Signs Vital signs: Vital Signs Temp 97.9 F 12/15/16 08:30 Pulse 66 12/15/16 10:00 Resp 16 12/15/16 10:00 BP 135/73 12/15/16 10:00 Pulse Ox 97 12/15/16 10:00 Intake & Output 12/14/16 12/15/16 12/15/16 18:59 06:59 18:59 Intake Total 1100 710 Output Total 550 990 165 Balance -550 110 545 Weight 97.4 kg Intake: IV 1100 400 Sodium Chloride 0.9% 1, 1100 400 000 ml @ 100 mls/hr IV . Q10H [facility] Rx#:[id number] Blood Product 0 310 Rc As-1 Unit 0 310 [id number] Output: Urine 550 990 165 Other: Voiding Method Bedpan Bedpan # Voids 1 # Bowel Movements 1 - Exam General appearance: The patient is alert, oriented, in no acute distress. HET: Head is normocephalic and atraumatic. Pupils are equal and reactive. Oropharynx is clear without lesions. Neck: Supple without lymphadenopathy. Trachea midline. Heart: S1 S2. Regular rate and rhythm. Lungs: No crackles or wheezes are heard. Abdomen: Soft, nontender, nondistended with bowel sounds. No peritoneal signs. No palpable organomegaly or masses. Extremities: Normal skin color and turgor. No cyanosis, rash, ulceration, clubbing, or edema. Radial and pedal pulses are 2/4 bilaterally. Neurological: No focal deficits. Strength and sensation are grossly intact. Rectal: Brown colored soft stool with tinged rust color. No overt hematochezia or clots. - Labs CBC & Chem 7: 12/15/16 07:35 12/15/16 07:35 Labs: Abnormal Lab Results - Last 24 Hours (Table) 12/14/16 12/14/16 12/14/16 Range/Units 18:53 19:20 19:20 WBC 20.0 H (3.8-10.6) k/uL RBC (3.80-5.40) m/uL Hgb 9.0 L (11.4-16.0) gm/dL Hct 30.5 L (34.0-46.0) % MCV (80.0-100.0) fL MCH 23.6 L (25.0-35.0) pg MCHC 29.4 L (31.0-37.0) g/dL RDW 18.2 H (11.5-15.5) % Neutrophils # 17.8 H (1.3-7.7) k/uL Lymphocytes # 0.7 L (1.0-4.8) k/uL Monocytes # 1.2 H (0-1.0) k/uL Sodium 133 L (137-145) mmol/L BUN 19 H (7-17) mg/dL Creatinine 0.33 L (0.52-1.04) mg/dL POC Glucose (mg/dL) 101 H (75-99) mg/dL Phosphorus 2.1 L (2.5-4.5) mg/dL Total Bilirubin (0.2-1.3) mg/dL AST (14-36) U/L ALT (9-52) U/L Alkaline Phosphatase (38-126) U/L Total Protein (6.3-8.2) g/dL Albumin (3.5-5.0) g/dL Crossmatch 12/14/16 12/15/16 12/15/16 Range/Units 19:20 01:48 07:35 WBC 20.8 H 17.5 H (3.8-10.6) k/uL RBC 3.34 L (3.80-5.40) m/uL Hgb 7.8 L 9.6 L D (11.4-16.0) gm/dL Hct 26.1 L 31.7 L (34.0-46.0) % MCV 78.2 L 79.8 L (80.0-100.0) fL MCH 23.4 L 24.1 L (25.0-35.0) pg MCHC 30.0 L 30.1 L (31.0-37.0) g/dL RDW 18.3 H 18.4 H (11.5-15.5) % Neutrophils # 16.2 H (1.3-7.7) k/uL Lymphocytes # 0.4 L (1.0-4.8) k/uL Monocytes # (0-1.0) k/uL Sodium (137-145) mmol/L BUN (7-17) mg/dL Creatinine (0.52-1.04) mg/dL POC Glucose (mg/dL) (75-99) mg/dL Phosphorus (2.5-4.5) mg/dL Total Bilirubin (0.2-1.3) mg/dL AST (14-36) U/L ALT (9-52) U/L Alkaline Phosphatase (38-126) U/L Total Protein (6.3-8.2) g/dL Albumin (3.5-5.0) g/dL Crossmatch See Detail 12/15/16 Range/Units 07:35 WBC (3.8-10.6) k/uL RBC (3.80-5.40) m/uL Hgb (11.4-16.0) gm/dL Hct (34.0-46.0) % MCV (80.0-100.0) fL MCH (25.0-35.0) pg MCHC (31.0-37.0) g/dL RDW (11.5-15.5) % Neutrophils # (1.3-7.7) k/uL Lymphocytes # (1.0-4.8) k/uL Monocytes # (0-1.0) k/uL Sodium 133 L (137-145) mmol/L BUN (7-17) mg/dL Creatinine 0.30 L (0.52-1.04) mg/dL POC Glucose (mg/dL) (75-99) mg/dL Phosphorus (2.5-4.5) mg/dL Total Bilirubin 1.4 H (0.2-1.3) mg/dL AST 95 H (14-36) U/L ALT 56 H (9-52) U/L Alkaline Phosphatase 297 H (38-126) U/L Total Protein 5.5 L (6.3-8.2) g/dL Albumin 2.9 L (3.5-5.0) g/dL Crossmatch Assessment and Plan (1) Cecal lesion Narrative/Plan: Adenocarcinoma status post EGD colonoscopy Status: Acute (2) Iron deficiency anemia Narrative/Plan: Acute blood loss anemia Status: Acute (3) L3 vertebral fracture Status: Acute (4) Liver masses Status: Acute (5) Gastric lesion Status: Acute (6) Bone metastases Narrative/Plan: Status post kyphoplasty with biopsy 5 days ago Status: Acute Plan: 1. Suspect bleeding is from cecal tumor. Continue to hold antiplatelet aspirin and NSAID medications to prevent further bleeding. Continue stool softeners to prevent constipation. Suggested ensure 3 times a day with soft low residue diet as tolerated. Continue to monitor CBC. Discharge per medicine. ECF for chemoradiation as advised. 2. No further GI workup at this time. Assessment and plan of care discussed with Dr. Cerda
[2016-12-15] MEDS: NADOLOL 20 MG TAB PO SCH (10:24)
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
[2016-12-15 12:59] LABS: Anisocytosis Slight; CH 24.5; CHCM 29.8; HCT 30.8 % (34.0-46.0); HDW 4.42; HGB 9.3 gm/dL (11.4-16.0); Hypochromasia Marked; MCH 24.6 pg (25.0-35.0); MCHC 30.1 g/dL (31.0-37.0); MCV 81.9 fL (80.0-100.0); Mean Platelet Volume 7.3; Microcytosis Slight; Poikilocytosis Moderate; RBC 3.77 m/uL (3.80-5.40); RDW 18.7 % (11.5-15.5); WBC 17.8 k/uL (3.8-10.6)
--- NOTE | 2016-12-15 18:08 | P.PN ---
Subjective Patient reports having severe back pain radiating to lower extremities. She is scheduled to work with physical therapy today to evaluate patient if she is good for home with home care. Patient's family is arranging the home setting environment they're trying to work on making a ramp so patient can enter the house. Patient denies any chest pain or shortness breath. Denies any nausea or vomiting. She is now having regular bowel movements. Denies any further diarrhea. Denies difficulty urinating. Patient had an episode of profuse bleeding last night, A team were called and patient was transferred to intensive care unit red blood cell transfusion was initiated at this time patient is stable she has no further bleeding. Objective - Vital Signs Vital signs: Vital Signs Temp 98.1 F 12/15/16 16:00 Pulse 57 L 12/15/16 18:00 Resp 15 12/15/16 18:00 BP 133/68 12/15/16 18:00 Pulse Ox 96 12/15/16 18:00 Intake & Output 12/14/16 12/15/16 12/15/16 18:59 06:59 18:59 Intake Total 1100 1410 Output Total 550 990 580 Balance -550 110 830 Weight 97.4 kg 97.4 kg Intake: IV 1100 1100 Sodium Chloride 0.9% 1, 1100 1100 000 ml @ 100 mls/hr IV . Q10H [facility] Rx#:[id number] Blood Product 0 310 Rc As-1 Unit 0 310 [id number] Output: Urine 550 990 580 Other: Voiding Method Bedpan Bedpan Indwelling Catheter # Voids 1 # Bowel Movements 1 - Exam In general patient is alert and oriented 3 in no apparent distress HEENT head normocephalic and atraumatic Neck is supple no JVD no goiter no lymphadenopathy Chest exam reveals few scatterd rhonchi, no wheezing Cardiac exam reveals regular heart sounds no gallops no murmurs Abdomen is soft nontender no organomegaly Extremity exam reveals no edema no cyanosis or clubbing - Labs CBC & Chem 7: 12/15/16 12:47 12/15/16 07:35 Labs: Abnormal Lab Results - Last 24 Hours (Table) 12/14/16 12/14/16 12/14/16 Range/Units 18:53 19:20 19:20 WBC 20.0 H (3.8-10.6) k/uL RBC (3.80-5.40) m/uL Hgb 9.0 L (11.4-16.0) gm/dL Hct 30.5 L (34.0-46.0) % MCV (80.0-100.0) fL MCH 23.6 L (25.0-35.0) pg MCHC 29.4 L (31.0-37.0) g/dL RDW 18.2 H (11.5-15.5) % Neutrophils # 17.8 H (1.3-7.7) k/uL Lymphocytes # 0.7 L (1.0-4.8) k/uL Monocytes # 1.2 H (0-1.0) k/uL Sodium 133 L (137-145) mmol/L BUN 19 H (7-17) mg/dL Creatinine 0.33 L (0.52-1.04) mg/dL POC Glucose (mg/dL) 101 H (75-99) mg/dL Phosphorus 2.1 L (2.5-4.5) mg/dL Total Bilirubin (0.2-1.3) mg/dL AST (14-36) U/L ALT (9-52) U/L Alkaline Phosphatase (38-126) U/L Total Protein (6.3-8.2) g/dL Albumin (3.5-5.0) g/dL Crossmatch 12/14/16 12/15/16 12/15/16 Range/Units 19:20 01:48 07:35 WBC 20.8 H 17.5 H (3.8-10.6) k/uL RBC 3.34 L (3.80-5.40) m/uL Hgb 7.8 L 9.6 L D (11.4-16.0) gm/dL Hct 26.1 L 31.7 L (34.0-46.0) % MCV 78.2 L 79.8 L (80.0-100.0) fL MCH 23.4 L 24.1 L (25.0-35.0) pg MCHC 30.0 L 30.1 L (31.0-37.0) g/dL RDW 18.3 H 18.4 H (11.5-15.5) % Neutrophils # 16.2 H (1.3-7.7) k/uL Lymphocytes # 0.4 L (1.0-4.8) k/uL Monocytes # (0-1.0) k/uL Sodium (137-145) mmol/L BUN (7-17) mg/dL Creatinine (0.52-1.04) mg/dL POC Glucose (mg/dL) (75-99) mg/dL Phosphorus (2.5-4.5) mg/dL Total Bilirubin (0.2-1.3) mg/dL AST (14-36) U/L ALT (9-52) U/L Alkaline Phosphatase (38-126) U/L Total Protein (6.3-8.2) g/dL Albumin (3.5-5.0) g/dL Crossmatch See Detail 12/15/16 12/15/16 Range/Units 07:35 12:47 WBC 17.8 H (3.8-10.6) k/uL RBC 3.77 L (3.80-5.40) m/uL Hgb 9.3 L (11.4-16.0) gm/dL Hct 30.8 L (34.0-46.0) % MCV (80.0-100.0) fL MCH 24.6 L (25.0-35.0) pg MCHC 30.1 L (31.0-37.0) g/dL RDW 18.7 H (11.5-15.5) % Neutrophils # (1.3-7.7) k/uL Lymphocytes # (1.0-4.8) k/uL Monocytes # (0-1.0) k/uL Sodium 133 L (137-145) mmol/L BUN (7-17) mg/dL Creatinine 0.30 L (0.52-1.04) mg/dL POC Glucose (mg/dL) (75-99) mg/dL Phosphorus (2.5-4.5) mg/dL Total Bilirubin 1.4 H (0.2-1.3) mg/dL AST 95 H (14-36) U/L ALT 56 H (9-52) U/L Alkaline Phosphatase 297 H (38-126) U/L Total Protein 5.5 L (6.3-8.2) g/dL Albumin 2.9 L (3.5-5.0) g/dL Crossmatch Assessment and Plan Plan: 1. 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 Multiple biopsies obtained revealing adenocarcinoma. EGD showed a large hiatal hernia. Liver biopsy positive for adenocarcinoma. Oncology is following the plan is to start chemotherapy and immunotherapy adjuncts after radiation treatment. Discussed with Dr. Tubbs he is recommending a taper of dexamethasone over 2 weeks when discharged. Evaluated by surgical service they'll be placing a port in the near future 2. Acute on chronic back pain involving the cervical and lumbar spine with evidence of pathologic compression fracture of L3 and diffuse metastatic disease to the spine. Patient has seen by spinal service and back brace has been ordered. Awaiting radiation oncologists recommendations when to start radiation treatment. Patient will possibly require kyphoplasty for better pain control. She'll further evaluation with spinal surgery outpatient 3. Metastatic liver disease with mild transaminitis 4. Essential hypertension: Blood pressure not well controlled we'll continue to monitor closely 5. Acute on chronic anemia most likely of chronic disease. Patient received 1 unit of blood transfusion. Would monitor CBC daily. 6. Medical debility: Continue with physical therapy. Patient is to work with physical therapy today to assess if she can be discharged home with home care. At this time awaiting physical therapy recommendations. Patient's family is arranging equipment at home for patient. Awaiting radiation oncologist recommendations when to start radiation treatment. 7. Episode of profuse bleeding requiring transfer to intensive care unit and transfusion of red blood cells last night at this time patient is more stable will monitor closely
[2016-12-15] MEDS: ESCITALOPRAM 10 MG TAB PO SCH (21:07)
[2016-12-16] MEDS: HYDROcodone/APAP 10-325MG 1 EACH TAB PO PRN ×4 (05:10→23:00)
[2016-12-16 05:42] LABS: ALT 53 U/L (9-52); AST 81 U/L (14-36); Alkaline Phosphatase 284 U/L (38-126); Anion Gap 7 mmol/L; Blood Urea Nitrogen 16 mg/dL (7-17); Calcium 8.9 mg/dL (8.4-10.2); Carbon Dioxide 26 mmol/L (22-30); Chloride 102 mmol/L (98-107); Glucose 101 mg/dL (74-99); Magnesium 1.9 mg/dL (1.6-2.3); Non-African American GFR(MDRD) >60 (>60 ml/min/1.73 sqM); Potassium 4.1 mmol/L (3.5-5.1); Sodium 135 mmol/L (137-145); Total Bilirubin 0.6 mg/dL (0.2-1.3); Total Protein 5.2 g/dL (6.3-8.2)
[2016-12-16 05:48] LABS: Anisocytosis Slight; Basophils % (A) 0 %; CH 24.5; CHCM 30.6; Eosinophils % (A) 0 %; HCT 29.2 % (34.0-46.0); HDW 4.57; HGB 8.7 gm/dL (11.4-16.0); Hypochromasia Marked; Luc # (Auto) 0.14; Luc % (Auto) 1; Lymphocytes # (A) 0.3 k/uL (1.0-4.8); Lymphocytes % (A) 2 %; MCH 23.9 pg (25.0-35.0); MCHC 29.9 g/dL (31.0-37.0); MCV 79.9 fL (80.0-100.0); Microcytosis Slight; Monocytes # (A) 0.8 k/uL (0-1.0); Monocytes % (A) 5 %; Neutrophils # (A) 13.6 k/uL (1.3-7.7); Neutrophils % (A) 92 %; Poikilocytosis Moderate; RBC 3.65 m/uL (3.80-5.40); RDW 18.6 % (11.5-15.5); WBC 14.8 k/uL (3.8-10.6); WBC (Perox) 15.41
[2016-12-16] MEDS: ALPRAZolam 0.5 MG TAB PO PRN ×3 (06:41→23:00)
[2016-12-16] MEDS: MAGNESIUM SULFATE-D5W PMX 1 GM in DEXTROSE/WATER 1 100ML.BAG IVPB SCH ×2 (07:06→08:17)
[2016-12-16] MEDS: PANTOPRAZOLE 40 MG TABLET PO SCH (08:17)
[2016-12-16] MEDS: SODIUM CHLORIDE 0.9% 1,000 ML IV SCH ×2 (08:17→19:40)
[2016-12-16] MEDS: GABAPENTIN 100 MG CAP PO SCH ×3 (08:18→20:54)
[2016-12-16] MEDS: DEXAMETHASONE 4 MG TAB PO SCH ×3 (08:18→20:54)
[2016-12-16] MEDS: NADOLOL 20 MG TAB PO SCH (08:18)
[2016-12-16] MEDS: DOCUSATE 100 MG CAP PO SCH ×2 (08:18→20:54)
--- NOTE | 2016-12-16 11:52 | P.PN ---
Subjective Principal diagnosis: Acute lower GI bleeding This is a 71-year-old female who was diagnosed by Dr. 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 Patient was admitted on 11/26/2016, her main complaint at the time with generalized weakness and falls. She also had neck pain and lumbar spinal pain, computed tomography revealed a lytic lesions involving the right transverse process of C2 as well as L1 and pathological L3 compression fracture was noted. Patient was also noted to have metastatic disease to the liver with elevated liver function tests, she was also noted to be anemic, and she had mild hyponatremia. At any rate patient has been seen by many consultants, and she underwent kyphoplasty and bone biopsy 5 days ago. Yesterday and while on the regular medical floor, patient developed significant lower GI bleeding and significant blood clots per rectum or noted. Hence the patient was transferred to the ICU and so far she received 1 unit of packed RBCs last night. Hemoglobin today is 9.6, it was as low as 7.8 last night. Patient is feeling much better today, and less GI bleeding was noted. Still being followed by many consultants including gastroenterology, and plans are being made for possibly transfer the patient to a rehab unit at [facility], and possibly receive radiation treatment to the lumbar spine. Considering the patient was admitted to the ICU, I was asked to see her on consultation. At present and upon my evaluation, patient had no headaches, no blurred vision, she had some pain in the cervical spine, and pain in the lumbar spine. No shortness of breath no cough no wheezing no nausea no vomiting no abdominal pain she does have some symptoms of GI bleeding, with minimal abdominal pain. No dysuria and no frequency no urgency. Patient was reevaluated today on 12/16/2016, no bleeding overnight, she had normal bowel movement this morning, she denies any abdominal pain, no melena, no hematemesis. Patient remains hemodynamically stable. Hemoglobin is 8.7 today, she only received 1 unit of packed RBCs since admission to the ICU. Her basic metabolic profile is normal renal profile is normal. Patient seems to be mostly concerned about her at home who has dementia, and apparently she has been his main caregiver. Presently the children are handling him at home. Patient has been taking care of her for the last 28 years. After reviewing her labs and reviewing her medical issues, I think it is appropriate to start considering transferring the patient to rehab at [facility], and she could also seen by radiation oncology, apparently this has been already planned for the patient by Dr. Tubbs. Objective - Vital Signs Vital signs: Vital Signs Temp 97.6 F 12/16/16 08:00 Pulse 60 12/16/16 11:00 Resp 19 12/16/16 11:00 BP 130/64 12/16/16 11:00 Pulse Ox 96 12/16/16 11:00 Intake & Output 12/15/16 12/16/16 12/16/16 18:59 06:59 18:59 Intake Total 1510 1200 750 Output Total 660 1070 290 Balance 850 130 460 Weight 97.4 kg 97.7 kg Intake: IV 1200 1100 500 Magnesium Sulfate-D5w Pmx 200 1 gm In Dextrose/Water 1 100ml.bag @ 100 mls/hr IVPB Q1H [facility] Rx#: [id number] Sodium Chloride 0.9% 1, 1200 1100 300 000 ml @ 100 mls/hr IV . Q10H [facility] Rx#:[id number] Intake, IV Titration 100 Amount Sodium Chloride 0.9% 50 100 ml As IV .STK-MED ONE with ceFAZolin 2,000 mg Rx#:[id number] Oral 250 Blood Product 310 Rc As-1 Unit 310 [id number] Output: Urine 660 1070 290 Other: Voiding Method Indwelling Catheter Indwelling Catheter Indwelling Catheter # Voids 1 # Bowel Movements 1 - Exam General appearance: Revealed a very pleasant 71-year-old female in no distress.. HET: Head is normocephalic and atraumatic. Neck: Supple without lymphadenopathy. Heart: S1 S2. Regular rate and rhythm. Lungs: No crackles or wheezes are heard. Abdomen: Soft, nontender, nondistended with bowel sounds. No peritoneal signs. No palpable organomegaly or masses. Extremities: Normal skin color and turgor. No cyanosis, rash, ulceration, clubbing, or edema. Radial and pedal pulses are 2/4 bilaterally. Neurological: No focal neurologic deficit Rectal: Not performed - Labs CBC & Chem 7: 12/16/16 04:55 12/16/16 04:55 Labs: Abnormal Lab Results - Last 24 Hours (Table) 12/14/16 12/15/16 12/16/16 Range/Units 19:20 12:47 04:55 WBC 17.8 H (3.8-10.6) k/uL RBC 3.77 L (3.80-5.40) m/uL Hgb 9.3 L (11.4-16.0) gm/dL Hct 30.8 L (34.0-46.0) % MCV (80.0-100.0) fL MCH 24.6 L (25.0-35.0) pg MCHC 30.1 L (31.0-37.0) g/dL RDW 18.7 H (11.5-15.5) % Neutrophils # (1.3-7.7) k/uL Lymphocytes # (1.0-4.8) k/uL Sodium 135 L (137-145) mmol/L Creatinine 0.31 L (0.52-1.04) mg/dL Glucose 101 H (74-99) mg/dL AST 81 H (14-36) U/L ALT 53 H (9-52) U/L Alkaline Phosphatase 284 H (38-126) U/L Total Protein 5.2 L (6.3-8.2) g/dL Albumin 2.6 L (3.5-5.0) g/dL Crossmatch See Detail 12/16/16 Range/Units 04:55 WBC 14.8 H (3.8-10.6) k/uL RBC 3.65 L (3.80-5.40) m/uL Hgb 8.7 L (11.4-16.0) gm/dL Hct 29.2 L (34.0-46.0) % MCV 79.9 L (80.0-100.0) fL MCH 23.9 L (25.0-35.0) pg MCHC 29.9 L (31.0-37.0) g/dL RDW 18.6 H (11.5-15.5) % Neutrophils # 13.6 H (1.3-7.7) k/uL Lymphocytes # 0.3 L (1.0-4.8) k/uL Sodium (137-145) mmol/L Creatinine (0.52-1.04) mg/dL Glucose (74-99) mg/dL AST (14-36) U/L ALT (9-52) U/L Alkaline Phosphatase (38-126) U/L Total Protein (6.3-8.2) g/dL Albumin (3.5-5.0) g/dL Crossmatch Assessment and Plan Plan: Impression: 1 acute lower GI bleeding secondary to adenocarcinoma of the cecum, no active bleeding at present on 12/16/2016. 2 recently diagnosed adenocarcinoma of the cecum. 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 4 L3 pathological fracture secondary to metastatic adenocarcinoma 5 anemia secondary to GI blood losses 6 status post kyphoplasty and bone biopsy of lumbar spine Recommendation: Consider transferring the patient out of the ICU to a regular medical floor today, and consider further plans to transfer the patient eventually to a rehab at [facility]. Patient demonstrated hemodynamic stability over the last 2 days required only one unit of packed RBCs since admission to the ICU. We'll continue to follow as needed. Time with Patient: Less than 30
--- NOTE | 2016-12-16 17:22 | P.PN ---
Subjective Patient reports having severe back pain radiating to lower extremities. She is scheduled to work with physical therapy today to evaluate patient if she is good for home with home care. Patient's family is arranging the home setting environment they're trying to work on making a ramp so patient can enter the house. Patient denies any chest pain or shortness breath. Denies any nausea or vomiting. She is now having regular bowel movements. Denies any further diarrhea. Denies difficulty urinating. Patient had an episode of profuse bleeding last night, A team were called and patient was transferred to intensive care unit red blood cell transfusion was initiated at this time patient is stable she has no further bleeding. Objective - Vital Signs Vital signs: Vital Signs Temp 97.6 F 12/16/16 08:00 Pulse 60 12/16/16 11:00 Resp 19 12/16/16 11:00 BP 130/64 12/16/16 11:00 Pulse Ox 96 12/16/16 11:00 Intake & Output 12/15/16 12/16/16 12/16/16 18:59 06:59 18:59 Intake Total 1510 1200 850 Output Total 660 1070 515 Balance 850 130 335 Weight 97.4 kg 97.7 kg Intake: IV 1200 1100 600 Magnesium Sulfate-D5w Pmx 200 1 gm In Dextrose/Water 1 100ml.bag @ 100 mls/hr IVPB Q1H [facility] Rx#: [id number] Sodium Chloride 0.9% 1, 1200 1100 400 000 ml @ 100 mls/hr IV . Q10H [facility] Rx#:[id number] Intake, IV Titration 100 Amount Sodium Chloride 0.9% 50 100 ml As IV .STK-MED ONE with ceFAZolin 2,000 mg Rx#:[id number] Oral 250 Blood Product 310 Rc As-1 Unit 310 [id number] Output: Urine 660 1070 515 Other: Voiding Method Indwelling Catheter Indwelling Catheter Indwelling Catheter # Voids 1 # Bowel Movements 1 1 - Exam In general patient is alert and oriented 3 in no apparent distress HEENT head normocephalic and atraumatic Neck is supple no JVD no goiter no lymphadenopathy Chest exam reveals few scatterd rhonchi, no wheezing Cardiac exam reveals regular heart sounds no gallops no murmurs Abdomen is soft nontender no organomegaly Extremity exam reveals no edema no cyanosis or clubbing - Labs CBC & Chem 7: 12/16/16 04:55 12/16/16 04:55 Labs: Abnormal Lab Results - Last 24 Hours (Table) 12/16/16 12/16/16 Range/Units 04:55 04:55 WBC 14.8 H (3.8-10.6) k/uL RBC 3.65 L (3.80-5.40) m/uL Hgb 8.7 L (11.4-16.0) gm/dL Hct 29.2 L (34.0-46.0) % MCV 79.9 L (80.0-100.0) fL MCH 23.9 L (25.0-35.0) pg MCHC 29.9 L (31.0-37.0) g/dL RDW 18.6 H (11.5-15.5) % Neutrophils # 13.6 H (1.3-7.7) k/uL Lymphocytes # 0.3 L (1.0-4.8) k/uL Sodium 135 L (137-145) mmol/L Creatinine 0.31 L (0.52-1.04) mg/dL Glucose 101 H (74-99) mg/dL AST 81 H (14-36) U/L ALT 53 H (9-52) U/L Alkaline Phosphatase 284 H (38-126) U/L Total Protein 5.2 L (6.3-8.2) g/dL Albumin 2.6 L (3.5-5.0) g/dL Assessment and Plan Plan: 1. 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 Multiple biopsies obtained revealing adenocarcinoma. EGD showed a large hiatal hernia. Liver biopsy positive for adenocarcinoma. Oncology is following the plan is to start chemotherapy and immunotherapy adjuncts after radiation treatment. Discussed with Dr. Tubbs he is recommending a taper of dexamethasone over 2 weeks when discharged. Evaluated by surgical service they'll be placing a port in the near future 2. Acute on chronic back pain involving the cervical and lumbar spine with evidence of pathologic compression fracture of L3 and diffuse metastatic disease to the spine. Patient has seen by spinal service and back brace has been ordered. Awaiting radiation oncologists recommendations when to start radiation treatment. Patient will possibly require kyphoplasty for better pain control. She'll further evaluation with spinal surgery outpatient 3. Metastatic liver disease with mild transaminitis 4. Essential hypertension: Blood pressure not well controlled we'll continue to monitor closely 5. Acute on chronic anemia most likely of chronic disease. Patient received 1 unit of blood transfusion. Would monitor CBC daily. 6. Medical debility: Continue with physical therapy. Patient is to work with physical therapy today to assess if she can be discharged home with home care. At this time awaiting physical therapy recommendations. Patient's family is arranging equipment at home for patient. Awaiting radiation oncologist recommendations when to start radiation treatment. 7. Episode of profuse bleeding requiring transfer to intensive care unit and transfusion of red blood cells last night at this time patient is more stable will monitor closely 8. Patient was reevaluated by radiation oncology, and plan is to proceed with radiation therapy at this point 9. CODE STATUS will be changed to no code per patient request
[2016-12-16] MEDS: ESCITALOPRAM 10 MG TAB PO SCH (20:54)
[2016-12-17] MEDS: SODIUM CHLORIDE 0.9% 1,000 ML IV SCH ×4 (04:10→21:09)
[2016-12-17] MEDS: HYDROcodone/APAP 10-325MG 1 EACH TAB PO PRN ×4 (04:16→22:50)
[2016-12-17 08:07] LABS: Anisocytosis Slight; Basophils % (A) 0 %; CH 24.4; CHCM 29.6; Eosinophils % (A) 0 %; HCT 31.3 % (34.0-46.0); HDW 4.13; HGB 9.3 gm/dL (11.4-16.0); Hypochromasia Marked; Luc # (Auto) 0.17; Luc % (Auto) 1; Lymphocytes # (A) 0.4 k/uL (1.0-4.8); Lymphocytes % (A) 2 %; MCH 24.4 pg (25.0-35.0); MCHC 29.6 g/dL (31.0-37.0); MCV 82.2 fL (80.0-100.0); Mean Platelet Volume 7.5; Microcytosis Slight; Monocytes % (A) 6 %; Neutrophils # (A) 15.1 k/uL (1.3-7.7); Neutrophils % (A) 90 %; Poikilocytosis Moderate; RBC 3.81 m/uL (3.80-5.40); RDW 19.1 % (11.5-15.5); WBC 16.7 k/uL (3.8-10.6); WBC (Perox) 17.37
[2016-12-17 08:26] LABS: ALT 60 U/L (9-52); AST 78 U/L (14-36); Alkaline Phosphatase 305 U/L (38-126); Anion Gap 7 mmol/L; Blood Urea Nitrogen 15 mg/dL (7-17); Calcium 8.9 mg/dL (8.4-10.2); Carbon Dioxide 27 mmol/L (22-30); Chloride 101 mmol/L (98-107); Glucose 90 mg/dL (74-99); Magnesium 2.1 mg/dL (1.6-2.3); Non-African American GFR(MDRD) >60 (>60 ml/min/1.73 sqM); Sodium 135 mmol/L (137-145); Total Bilirubin 0.5 mg/dL (0.2-1.3)
[2016-12-17] MEDS ORDERED: LORazepam 2 MG/ML SYRINGE IM STA (10:11)
--- NOTE | 2016-12-17 10:36 | P.PN ---
Subjective Principal diagnosis: metastatic colon adenocarcinoma, liver and bone metastasis Pt seen today in follow up. No c/o of hematuria, hematochezia or melena today, no abd or rectal pain. Pt is concerned about recurrent bleeding, she is also concerned about her plan of care. This AM she states having a headache, associated with vision changes-aura, transient black spot in her visual field- she denies nausea, dysphagia or any other neurological symptoms. Pt has multiple family challenges that are affecting her ability to focus on her own care. Objective - Vital Signs Vital signs: Vital Signs Temp 98 F 12/17/16 07:00 Pulse 74 12/17/16 07:00 Resp 16 12/17/16 08:39 BP 186/102 12/17/16 07:00 Pulse Ox 97 12/17/16 07:00 Intake & Output 12/16/16 12/17/16 12/17/16 18:59 06:59 18:59 Intake Total 1050 2600 Output Total 515 625 Balance 535 1975 Weight 97.7 kg Intake: IV 600 1800 Magnesium Sulfate-D5w Pmx 200 1800 1 gm In Dextrose/Water 1 100ml.bag @ 100 mls/hr IVPB Q1H [facility] Rx#: [id number] Sodium Chloride 0.9% 1, 400 000 ml @ 100 mls/hr IV . Q10H [facility] Rx#:[id number] Oral 450 800 Output: Urine 515 625 Other: Voiding Method Indwelling Catheter Indwelling Catheter # Voids 1 11 1 # Bowel Movements 1 1 - Constitutional General appearance: Present: cooperative, no acute distress, obese - EENT Eyes: Present: anicteric sclerae, EOMI, normal appearance - Neurologic Neurologic Comment(s): BLE weakness, no unilateral deficit noted Neurologic: Present: CNII-XII intact - Musculoskeletal Musculoskeletal: Present: generalized weakness - Psychiatric Psychiatric: Present: A&O x's 3, appropriate affect, intact judgment & insight - Labs CBC & Chem 7: 12/17/16 07:30 12/17/16 07:30 Labs: Abnormal Lab Results - Last 24 Hours (Table) 12/14/16 12/17/16 12/17/16 Range/Units 19:20 07:30 07:30 WBC 16.7 H (3.8-10.6) k/uL Hgb 9.3 L (11.4-16.0) gm/dL Hct 31.3 L (34.0-46.0) % MCH 24.4 L (25.0-35.0) pg MCHC 29.6 L (31.0-37.0) g/dL RDW 19.1 H (11.5-15.5) % Neutrophils # 15.1 H (1.3-7.7) k/uL Lymphocytes # 0.4 L (1.0-4.8) k/uL Sodium 135 L (137-145) mmol/L Creatinine 0.32 L (0.52-1.04) mg/dL AST 78 H (14-36) U/L ALT 60 H (9-52) U/L Alkaline Phosphatase 305 H (38-126) U/L Total Protein 5.0 L (6.3-8.2) g/dL Albumin 2.8 L (3.5-5.0) g/dL Crossmatch See Detail Assessment and Plan (1) Anemia Narrative/Plan: Stable Hgb. Pt does need iron, will order parenteral iron in the near future. Status: Acute (2) Hepatic lesion Narrative/Plan: Pathology confirmed metastatic adenocarcinoma Status: Acute (3) Lytic bone lesions on xray Narrative/Plan: Pathology confirmed metastatic adenocarcinoma Status: Acute (4) Adenocarcinoma of cecum Narrative/Plan: Plan of care consists of radiation to nico metastasis initially, hopefully improve pain, and systemic chemotherapy for palliation of symptoms and prolongation of life. Due to pt prolonged hospitalization she has become physically debilitated and radiation could cause pt to become weaker still which will delay systemic treatment for her malignancy. Pt was evaluated by Dr. Arango and I believe she is a candidate for inpatient rehab. Encourage radiation and rehab, Dr. Tubbs with f/u with pt once complete to evaluate pt for systemic treatment. Communicated recommendations to nursing, Attending will make final decisions. Status: Acute (5) Bone metastases Status: Acute (6) Headache Narrative/Plan: Due to pt complaints MRI of the brain has been ordered to evaluate for possible brain mets. Will f/u. Status: Acute
[2016-12-17] MEDS: ONDANSETRON 4 MG/2 ML VIAL IVP PRN (10:54)
[2016-12-17] MEDS: PANTOPRAZOLE 40 MG TABLET PO SCH (10:58)
[2016-12-17] MEDS: DOCUSATE 100 MG CAP PO SCH ×2 (10:59→21:02)
[2016-12-17] MEDS: DEXAMETHASONE 4 MG TAB PO SCH ×3 (11:00→21:03)
[2016-12-17] MEDS: NADOLOL 20 MG TAB PO SCH (11:00)
[2016-12-17] MEDS: GABAPENTIN 100 MG CAP PO SCH ×3 (11:01→21:03)
[2016-12-17] MEDS ORDERED: LORazepam 2 MG/ML SYRINGE IV STA (11:16)
--- NOTE | 2016-12-17 11:45 | P.PN ---
Subjective Patient complaining of headache and flashing white spots in his low in the right eye. She's also having severe dizziness. Patient also reports some burning with urination and possible urinary retention. She does she cannot completely empty her bladder. Her GI bleed symptoms have resolved. She did have elevated blood pressure this morning of 186/102 and repeat blood pressures down to 140/52. Patient has an MRI of the brain scheduled in regards to these headaches and vision changes in the right eye. Patient denies any chest pain or shortness of breath. Denies any nausea or vomiting. Objective - Vital Signs Vital signs: Vital Signs Temp 98 F 12/17/16 07:00 Pulse 74 12/17/16 07:00 Resp 16 12/17/16 08:39 BP 186/102 12/17/16 07:00 Pulse Ox 97 12/17/16 07:00 Intake & Output 12/16/16 12/17/16 12/17/16 18:59 06:59 18:59 Intake Total 1050 2600 Output Total 515 625 Balance 535 1975 Weight 97.7 kg Intake: IV 600 1800 Magnesium Sulfate-D5w Pmx 200 1800 1 gm In Dextrose/Water 1 100ml.bag @ 100 mls/hr IVPB Q1H [facility] Rx#: [id number] Sodium Chloride 0.9% 1, 400 000 ml @ 100 mls/hr IV . Q10H [facility] Rx#:[id number] Oral 450 800 Output: Urine 515 625 Other: Voiding Method Indwelling Catheter Indwelling Catheter # Voids 1 11 1 # Bowel Movements 1 1 - Exam Head normocephalic Neck supple Lungs clear to auscultation bilaterally no wheezing or crackles Heart regular rate and rhythm S1-S2, no rub or gallop Abdomen is soft nontender nondistended positive bowel sounds no hepatosplenomegaly Extremities no edema Neuro alert and orientated to 3 - Labs CBC & Chem 7: 12/17/16 07:30 12/17/16 07:30 Labs: Abnormal Lab Results - Last 24 Hours (Table) 12/14/16 12/17/16 12/17/16 Range/Units 19:20 07:30 07:30 WBC 16.7 H (3.8-10.6) k/uL Hgb 9.3 L (11.4-16.0) gm/dL Hct 31.3 L (34.0-46.0) % MCH 24.4 L (25.0-35.0) pg MCHC 29.6 L (31.0-37.0) g/dL RDW 19.1 H (11.5-15.5) % Neutrophils # 15.1 H (1.3-7.7) k/uL Lymphocytes # 0.4 L (1.0-4.8) k/uL Sodium 135 L (137-145) mmol/L Creatinine 0.32 L (0.52-1.04) mg/dL AST 78 H (14-36) U/L ALT 60 H (9-52) U/L Alkaline Phosphatase 305 H (38-126) U/L Total Protein 5.0 L (6.3-8.2) g/dL Albumin 2.8 L (3.5-5.0) g/dL Crossmatch See Detail Assessment and Plan Plan: 1. 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 Multiple biopsies obtained revealing adenocarcinoma. EGD showed a large hiatal hernia. Liver biopsy positive for adenocarcinoma. Oncology is following the plan is to start chemotherapy and immunotherapy adjuncts after radiation treatment. Discussed with Dr. Tubbs he is recommending a taper of dexamethasone over 2 weeks when discharged. Evaluated by surgical service they'll be placing a port in the near future 2. Acute on chronic back pain involving the cervical and lumbar spine with evidence of pathologic compression fracture of L3 and diffuse metastatic disease to the spine. Patient status post kyphoplasty to L3. Pain tolerable. Complaining of numbness in the lower legs. Was started on Neurontin. Case discussed with spinal surgery. Patient is stable for discharge from their standpoint. Patient has seen by spinal service and back brace has been ordered. Awaiting to see if radiation treatment can be started here and [facility] and resumed at [facility] when transferred to the rehabilitation program 3. Metastatic liver disease with mild transaminitis 4. Essential hypertension: Blood pressure not well controlled we'll continue to monitor closely. Add lisinopril 5 mg at bedtime 5. Acute on chronic anemia most likely of chronic disease. Patient received 1 unit of blood transfusion. Would monitor CBC daily. 6. Medical debility: Continue physical therapy 7. Hyponatremia: Improved. Sodium 135 8. Neck pain with evidence of a lytic lesion in the right transverse process of C2. Continue with neck brace. Continue with pain medication and symptomatically treatment 9. Acute lower GI Bleed secondary to adenocarcinoma of the cecum. I did require a transfer to the ICU. It has currently on oncology floor. No further active bleeding. Hemoglobin stable at 9.3 10. Burning with urination and possible urinary retention. Check urinalysis with culture and sensitivity. Check postvoid residual 11. Headache with vision changes in the right eye. Oncology has ordered an MRI of the brain Awaiting to see if radiation treatment can be started during this hospitalization. However, when patient is stable the plan is to transfer to [facility] for rehabilitation under Dr. Arango's care. I performed an examination of the patient and discussed their management with the physician Hand Clipper. I have reviewed the Physician Hand Clipper's notes and agree with the documented findings and plan of care
--- NOTE | 2016-12-17 12:47 | P.PN ---
Subjective This is a 71-year-old female who was diagnosed by Dr. 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 Patient was admitted on 11/26/2016, her main complaint at the time with generalized weakness and falls. She also had neck pain and lumbar spinal pain, computed tomography revealed a lytic lesions involving the right transverse process of C2 as well as L1 and pathological L3 compression fracture was noted. Patient was also noted to have metastatic disease to the liver with elevated liver function tests, she was also noted to be anemic, and she had mild hyponatremia. At any rate patient has been seen by many consultants, and she underwent kyphoplasty and bone biopsy 5 days ago. Yesterday and while on the regular medical floor, patient developed significant lower GI bleeding and significant blood clots per rectum or noted. Hence the patient was transferred to the ICU and so far she received 1 unit of packed RBCs last night. Hemoglobin today is 9.6, it was as low as 7.8 last night. Patient is feeling much better today, and less GI bleeding was noted. Still being followed by many consultants including gastroenterology, and plans are being made for possibly transfer the patient to a rehab unit at [facility], and possibly receive radiation treatment to the lumbar spine. Considering the patient was admitted to the ICU, I was asked to see her on consultation. At present and upon my evaluation, patient had no headaches, no blurred vision, she had some pain in the cervical spine, and pain in the lumbar spine. No shortness of breath no cough no wheezing no nausea no vomiting no abdominal pain she does have some symptoms of GI bleeding, with minimal abdominal pain. No dysuria and no frequency no urgency. Patient was reevaluated today on 12/16/2016, no bleeding overnight, she had normal bowel movement this morning, she denies any abdominal pain, no melena, no hematemesis. Patient remains hemodynamically stable. Hemoglobin is 8.7 today, she only received 1 unit of packed RBCs since admission to the ICU. Her basic metabolic profile is normal renal profile is normal. Patient seems to be mostly concerned about her at home who has dementia, and apparently she has been his main caregiver. Presently the children are handling him at home. Patient has been taking care of her for the last 28 years. After reviewing her labs and reviewing her medical issues, I think it is appropriate to start considering transferring the patient to rehab at [facility], and she could also seen by radiation oncology, apparently this has been already planned for the patient by Dr. Tubbs. The patient is seen again today 12/17/2016 on the oncology unit. She is awake and alert in no acute distress. She is having issues with neck pain and headache. He is hypertensive. She denies any shortness of breath, cough or congestion. She is maintaining good O2 saturations in the upper 90s on room air. No further bleeding. Current hemoglobin 9.3. Objective - Vital Signs Vital signs: Vital Signs Temp 98 F 12/17/16 07:00 Pulse 74 12/17/16 07:00 Resp 16 12/17/16 08:39 BP 186/102 12/17/16 07:00 Pulse Ox 97 12/17/16 07:00 Intake & Output 12/16/16 12/17/16 12/17/16 18:59 06:59 18:59 Intake Total 1050 2600 Output Total 515 625 0 Balance 535 1975 0 Weight 97.7 kg Intake: IV 600 1800 Magnesium Sulfate-D5w Pmx 200 1800 1 gm In Dextrose/Water 1 100ml.bag @ 100 mls/hr IVPB Q1H [facility] Rx#: [id number] Sodium Chloride 0.9% 1, 400 000 ml @ 100 mls/hr IV . Q10H [facility] Rx#:[id number] Oral 450 800 Output: Urine 515 625 Post Void Residual 0 Other: Voiding Method Indwelling Catheter Indwelling Catheter # Voids 1 11 1 # Bowel Movements 1 1 - Exam GENERAL EXAM: Alert, fairly comfortable in no apparent distress. HEAD: Normocephalic. EYES: Normal reaction of pupils, equal size. NOSE: Clear with pink turbinates. THROAT: No erythema or exudates. NECK: No masses, no JVD. CHEST: No chest wall deformity. LUNGS: Equal air entry with no crackles, wheeze, rhonchi or dullness. CVS: S1 and S2 normal with no audible murmurs, regular rhythm. ABDOMEN: No hepatosplenomegaly, normal bowel sounds, no guarding or rigidity. SKIN: No rashes CENTRAL NERVOUS SYSTEM: No focal deficits, tone is normal in all 4 extremities. Extremities: There is no significant peripheral edema. No clubbing, no cyanosis. Peripheral pulses are intact. - Labs CBC & Chem 7: 12/17/16 07:30 12/17/16 07:30 Labs: Abnormal Lab Results - Last 24 Hours (Table) 12/14/16 12/17/16 12/17/16 Range/Units 19:20 07:30 07:30 WBC 16.7 H (3.8-10.6) k/uL Hgb 9.3 L (11.4-16.0) gm/dL Hct 31.3 L (34.0-46.0) % MCH 24.4 L (25.0-35.0) pg MCHC 29.6 L (31.0-37.0) g/dL RDW 19.1 H (11.5-15.5) % Neutrophils # 15.1 H (1.3-7.7) k/uL Lymphocytes # 0.4 L (1.0-4.8) k/uL Sodium 135 L (137-145) mmol/L Creatinine 0.32 L (0.52-1.04) mg/dL AST 78 H (14-36) U/L ALT 60 H (9-52) U/L Alkaline Phosphatase 305 H (38-126) U/L Total Protein 5.0 L (6.3-8.2) g/dL Albumin 2.8 L (3.5-5.0) g/dL Crossmatch See Detail Assessment and Plan Plan: Impression: 1 acute lower GI bleeding secondary to adenocarcinoma of the cecum, no active bleeding at present on 12/17/2016. 2 recently diagnosed adenocarcinoma of the cecum. 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 4 L3 pathological fracture secondary to metastatic adenocarcinoma 5 anemia secondary to GI blood losses 6 status post kyphoplasty and bone biopsy of lumbar spine Plan: The patient was seen and evaluated by Dr. Malagon. She is stable from the pulmonary and critical care standpoint. The plan is for transfer to [facility] inpatient rehabilitation with Dr. Aranog and to also undergo radiation therapy while there. We will follow with her on an as-needed basis.
--- NOTE | 2016-12-17 14:36 | MR ---
EXAMINATION TYPE: MR brain wo/w con DATE OF EXAM: 12/17/2016 COMPARISON: CT brain November 26, 2016. HISTORY: metastatic cancer, headache/aura/vision changes TECHNIQUE: Multiplanar, multisequence images of the brain and brainstem is performed without and with IV contras t, utilizing 20 mL intravenous MultiHance . FINDINGS: Diffusion weighted images demonstrate no evidence of a recent infarct or other diffusion ab normality. There is no worrisome extra-axial fluid collection. There is ventricular and sulcal promi nence consistent with diffuse cerebral atrophy. There are few scattered foci of T2 hyperintensity see n throughout the white matter bilaterally. Lesions are nonspecific in appearance and distribution but most likely on basis of product of chronic small vessel ischemic change. Midline structures demonstrate normal morphology. The craniocervical junction appears within normal limits. Post contrast images demonstrate no abnormal enhancement. The dural venous sinuses appear pa tent. The visualized sinuses are clear and the globes are intact. IMPRESSION: 1. Mild diffuse cerebral atrophy and chronic small vessel ischemic change noted. 2. No suspicious enhancing intraparenchymal mass is present to suggest metastatic disease to the brai n.
[2016-12-17] MEDS: ESCITALOPRAM 10 MG TAB PO SCH (21:03)
[2016-12-17] MEDS: LISINOPRIL 5 MG TAB PO SCH (21:09)
[2016-12-17 22:35] LABS: Appearance,Urine Cloudy (Clear); Bacteria,Urine Occasional /hpf; Bilirubin,Urine Negative (Negative); Glucose,Urine (UA) Negative (Negative); Ketones,Urine Negative (Negative); Leukocyte Esterase,Urine Large (Negative); Mucus,Urine Few /hpf; Nitrite,Urine Positive (Negative); PH, Urine 5.5 (5.0-8.0); Particle Count 30651; Protein,Urine Negative (Negative); RBC,Urine 20 /hpf (0-5); Specific Gravity,Urine 1.022 (1.001-1.035); Squamous Epithelial Cell,Urine <1 /hpf (0-4); UA Billing (MACRO vs. MICRO) MICRO; Urobilinogen,Urine <2.0 mg/dL (<2.0); WBC,Urine 70 /hpf (0-5)
[2016-12-17] MEDS: ALPRAZolam 0.5 MG TAB PO PRN (22:50)
[2016-12-18] MEDS: HYDROcodone/APAP 10-325MG 1 EACH TAB PO PRN ×3 (05:22→15:23)
[2016-12-18] MEDS: SODIUM CHLORIDE 0.9% 1,000 ML IV SCH ×2 (05:47→19:52)
[2016-12-18 07:56] LABS: Anisocytosis Slight; Basophils % (A) 0 %; CH 24.7; CHCM 29.8; Eosinophils % (A) 0 %; HCT 31.6 % (34.0-46.0); HDW 3.95; HGB 9.5 gm/dL (11.4-16.0); Hypochromasia Marked; Luc # (Auto) 0.17; Luc % (Auto) 1; Lymphocytes # (A) 0.4 k/uL (1.0-4.8); Lymphocytes % (A) 2 %; MCH 24.8 pg (25.0-35.0); MCV 82.4 fL (80.0-100.0); Mean Platelet Volume 7.7; Microcytosis Slight; Monocytes # (A) 0.9 k/uL (0-1.0); Monocytes % (A) 6 %; Neutrophils # (A) 14.5 k/uL (1.3-7.7); Neutrophils % (A) 91 %; Poikilocytosis Slight; RBC 3.84 m/uL (3.80-5.40); RDW 19.9 % (11.5-15.5); WBC (Perox) 16.66
[2016-12-18 08:47] LABS: ALT 72 U/L (9-52); AST 97 U/L (14-36); Alkaline Phosphatase 303 U/L (38-126); Anion Gap 6 mmol/L; Blood Urea Nitrogen 15 mg/dL (7-17); Calcium 9.1 mg/dL (8.4-10.2); Carbon Dioxide 28 mmol/L (22-30); Chloride 100 mmol/L (98-107); Glucose 80 mg/dL (74-99); Non-African American GFR(MDRD) >60 (>60 ml/min/1.73 sqM); Potassium 4.2 mmol/L (3.5-5.1); Sodium 134 mmol/L (137-145); Total Bilirubin 0.5 mg/dL (0.2-1.3); Total Protein 5.4 g/dL (6.3-8.2)
[2016-12-18] MEDS: ALPRAZolam 0.5 MG TAB PO PRN (10:17)
[2016-12-18] MEDS: DEXAMETHASONE 4 MG TAB PO SCH ×3 (10:18→22:26)
[2016-12-18] MEDS: NADOLOL 20 MG TAB PO SCH (10:18)
[2016-12-18] MEDS: GABAPENTIN 100 MG CAP PO SCH ×3 (10:18→22:26)
[2016-12-18] MEDS: PANTOPRAZOLE 40 MG TABLET PO SCH (10:18)
[2016-12-18] MEDS: DOCUSATE 100 MG CAP PO SCH ×2 (10:18→19:52)
--- NOTE | 2016-12-18 13:23 | P.PN ---
Subjective This is a 71-year-old female who was diagnosed by Dr. 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 Patient was admitted on 11/26/2016, her main complaint at the time with generalized weakness and falls. She also had neck pain and lumbar spinal pain, computed tomography revealed a lytic lesions involving the right transverse process of C2 as well as L1 and pathological L3 compression fracture was noted. Patient was also noted to have metastatic disease to the liver with elevated liver function tests, she was also noted to be anemic, and she had mild hyponatremia. At any rate patient has been seen by many consultants, and she underwent kyphoplasty and bone biopsy 5 days ago. Yesterday and while on the regular medical floor, patient developed significant lower GI bleeding and significant blood clots per rectum or noted. Hence the patient was transferred to the ICU and so far she received 1 unit of packed RBCs last night. Hemoglobin today is 9.6, it was as low as 7.8 last night. Patient is feeling much better today, and less GI bleeding was noted. Still being followed by many consultants including gastroenterology, and plans are being made for possibly transfer the patient to a rehab unit at [facility], and possibly receive radiation treatment to the lumbar spine. Considering the patient was admitted to the ICU, I was asked to see her on consultation. At present and upon my evaluation, patient had no headaches, no blurred vision, she had some pain in the cervical spine, and pain in the lumbar spine. No shortness of breath no cough no wheezing no nausea no vomiting no abdominal pain she does have some symptoms of GI bleeding, with minimal abdominal pain. No dysuria and no frequency no urgency. Patient was reevaluated today on 12/16/2016, no bleeding overnight, she had normal bowel movement this morning, she denies any abdominal pain, no melena, no hematemesis. Patient remains hemodynamically stable. Hemoglobin is 8.7 today, she only received 1 unit of packed RBCs since admission to the ICU. Her basic metabolic profile is normal renal profile is normal. Patient seems to be mostly concerned about her at home who has dementia, and apparently she has been his main caregiver. Presently the children are handling him at home. Patient has been taking care of her for the last 28 years. After reviewing her labs and reviewing her medical issues, I think it is appropriate to start considering transferring the patient to rehab at [facility], and she could also seen by radiation oncology, apparently this has been already planned for the patient by Dr. Tubbs. The patient is seen again today 12/17/2016 on the oncology unit. She is awake and alert in no acute distress. She is having issues with neck pain and headache. She is hypertensive. She denies any shortness of breath, cough or congestion. She is maintaining good O2 saturations in the upper 90s on room air. No further bleeding. Current hemoglobin 9.3. The patient is seen again today 12/18/2016 in follow-up on the oncology unit. She is doing better today. No complaints of headache. Still having some issues with hypertension. She denies any shortness of breath, cough or congestion. She is maintaining good O2 saturations in the upper 90s on room air. There's been no further bleeding and hemoglobin stable at 9.5. Objective - Vital Signs Vital signs: Vital Signs Temp 98 F 12/18/16 07:00 Pulse 73 12/18/16 07:00 Resp 16 12/18/16 07:00 BP 152/103 12/18/16 07:00 Pulse Ox 96 12/18/16 07:00 Intake & Output 12/17/16 12/18/16 12/18/16 18:59 06:59 18:59 Intake Total 240 Output Total 400 Balance -400 240 Weight 97.7 kg Intake: Oral 240 Output: Urine 400 Post Void Residual 0 Other: Voiding Method Bedpan Bedpan Bedpan # Voids 2 1 # Bowel Movements 1 - Exam GENERAL EXAM: Alert, fairly comfortable in no apparent distress. HEAD: Normocephalic. EYES: Normal reaction of pupils, equal size. NOSE: Clear with pink turbinates. THROAT: No erythema or exudates. NECK: No masses, no JVD. CHEST: No chest wall deformity. LUNGS: Equal air entry with no crackles, wheeze, rhonchi or dullness. CVS: S1 and S2 normal with no audible murmurs, regular rhythm. ABDOMEN: No hepatosplenomegaly, normal bowel sounds, no guarding or rigidity. SKIN: No rashes CENTRAL NERVOUS SYSTEM: No focal deficits, tone is normal in all 4 extremities. Extremities: There is no significant peripheral edema. No clubbing, no cyanosis. Peripheral pulses are intact. - Labs CBC & Chem 7: 12/18/16 07:45 12/18/16 07:45 Labs: Abnormal Lab Results - Last 24 Hours (Table) 12/17/16 12/18/16 12/18/16 Range/Units 22:14 07:45 07:45 WBC 16.0 H (3.8-10.6) k/uL Hgb 9.5 L (11.4-16.0) gm/dL Hct 31.6 L (34.0-46.0) % MCH 24.8 L (25.0-35.0) pg MCHC 30.0 L (31.0-37.0) g/dL RDW 19.9 H (11.5-15.5) % Neutrophils # 14.5 H (1.3-7.7) k/uL Lymphocytes # 0.4 L (1.0-4.8) k/uL Sodium 134 L (137-145) mmol/L Creatinine 0.32 L (0.52-1.04) mg/dL AST 97 H (14-36) U/L ALT 72 H (9-52) U/L Alkaline Phosphatase 303 H (38-126) U/L Total Protein 5.4 L (6.3-8.2) g/dL Albumin 2.8 L (3.5-5.0) g/dL Urine Appearance Cloudy H (Clear) Urine Blood Small H (Negative) Urine Nitrite Positive H (Negative) Ur Leukocyte Esterase Large H (Negative) Urine RBC 20 H (0-5) /hpf Urine WBC 70 H (0-5) /hpf Urine Bacteria Occasional H (None) /hpf Urine Mucus Few H (None) /hpf Microbiology - Last 24 Hours (Table) 12/17/16 22:14 Urine Culture - Preliminary Urine,Clean Catch Assessment and Plan Plan: Impression: 1 acute lower GI bleeding secondary to adenocarcinoma of the cecum, no active bleeding at present on 12/17/2016. 2 recently diagnosed adenocarcinoma of the cecum. 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 4 L3 pathological fracture secondary to metastatic adenocarcinoma 5 anemia secondary to GI blood losses 6 status post kyphoplasty and bone biopsy of lumbar spine Plan: The patient was seen and evaluated by Dr. Malagon. She is stable from the pulmonary and critical care standpoint. We will follow with her on an as-needed basis.
[2016-12-18] MEDS: LISINOPRIL 5 MG TAB PO SCH (19:52)
[2016-12-18] MEDS: ESCITALOPRAM 10 MG TAB PO SCH (19:52)
[2016-12-18] MEDS: MORPHINE SULFATE ER 15 MG TABLET PO SCH (22:25)
[2016-12-19] MEDS: ALPRAZolam 0.5 MG TAB PO PRN ×2 (03:39→19:23)
[2016-12-19] MEDS: SODIUM CHLORIDE 0.9% 1,000 ML IV SCH ×3 (03:57→23:04)
[2016-12-19 06:53] LABS: Anisocytosis Slight; Basophils % (A) 0 %; CH 24.6; CHCM 30.5; Eosinophils % (A) 0 %; HCT 31.4 % (34.0-46.0); HGB 9.7 gm/dL (11.4-16.0); Hypochromasia Marked; Luc # (Auto) 0.14; Luc % (Auto) 1; Lymphocytes # (A) 0.4 k/uL (1.0-4.8); Lymphocytes % (A) 3 %; MCH 24.8 pg (25.0-35.0); MCHC 30.9 g/dL (31.0-37.0); MCV 80.2 fL (80.0-100.0); Mean Platelet Volume 7.2; Microcytosis Slight; Monocytes # (A) 0.7 k/uL (0-1.0); Monocytes % (A) 5 %; Neutrophils # (A) 13.7 k/uL (1.3-7.7); Neutrophils % (A) 91 %; Poikilocytosis Moderate; RBC 3.91 m/uL (3.80-5.40); RDW 19.9 % (11.5-15.5); WBC (Perox) 15.63
[2016-12-19 07:22] LABS: ALT 81 U/L (9-52); AST 104 U/L (14-36); Alkaline Phosphatase 340 U/L (38-126); Anion Gap 9 mmol/L; Blood Urea Nitrogen 15 mg/dL (7-17); Calcium 9.3 mg/dL (8.4-10.2); Carbon Dioxide 29 mmol/L (22-30); Chloride 98 mmol/L (98-107); Glucose 97 mg/dL (74-99); Non-African American GFR(MDRD) >60 (>60 ml/min/1.73 sqM); Potassium 4.2 mmol/L (3.5-5.1); Sodium 136 mmol/L (137-145); Total Bilirubin 0.5 mg/dL (0.2-1.3); Total Protein 5.6 g/dL (6.3-8.2)
[2016-12-19] MEDS: HYDROcodone/APAP 10-325MG 1 EACH TAB PO PRN ×3 (08:00→19:23)
[2016-12-19] MEDS: DOCUSATE 100 MG CAP PO SCH ×2 (09:12→19:24)
[2016-12-19] MEDS: MORPHINE SULFATE ER 15 MG TABLET PO SCH ×2 (09:12→23:01)
[2016-12-19] MEDS: NADOLOL 20 MG TAB PO SCH (09:12)
[2016-12-19] MEDS: DEXAMETHASONE 4 MG TAB PO SCH ×3 (09:12→19:25)
[2016-12-19] MEDS: GABAPENTIN 100 MG CAP PO SCH ×3 (09:12→19:25)
[2016-12-19] MEDS: PANTOPRAZOLE 40 MG TABLET PO SCH (09:13)
--- NOTE | 2016-12-19 09:36 | P.PN ---
Subjective 71-year-old female seen and examined this morning sitting up in bed talkative. Pleasant cooperative alert appears in no acute distress. Patient is verbalizing concern anxious to start radiation treatment while hospitalized. Results of the MRI of the brain done on the showed no suspicious enhancing mass to suggest metastatic disease to the brain Objective - Vital Signs Vital signs: Vital Signs Temp 97.9 F 12/19/16 07:00 Pulse 70 12/19/16 07:00 Resp 20 12/19/16 07:00 BP 155/92 12/19/16 07:00 Pulse Ox 98 12/19/16 07:00 Intake & Output 12/18/16 12/19/16 12/19/16 18:59 06:59 18:59 Intake Total 800 240 Balance 800 240 Intake: IV 750 Sodium Chloride 0.9% 1, 750 000 ml @ 100 mls/hr IV . Q10H [facility] Rx#:[id number] Intake, IV Titration 50 Amount cefTRIAXone 1,000 mg In 50 Sodium Chloride 0.9% 50 ml @ 100 mls/hr IVPB Q24HR [facility] Rx#:[id number] Oral 240 Other: Voiding Method Bedpan Bedpan # Voids 2 2 - Exam Physical exam 71-year-old female resting in bed. Oriented 3 pleasant cooperative lungs essentially clear adequate air movement Dr. 93% on room air Heart S1-S2 audible regular no murmur noted denying chest pain Abdomen soft nontender not distended no stool reports the nausea vomiting one bowel movement the day before Extremities trace pedal edema bilateral lower extremities with Venodyne's on - Labs CBC & Chem 7: 12/19/16 06:30 12/19/16 06:30 Labs: Abnormal Lab Results - Last 24 Hours (Table) 12/19/16 12/19/16 Range/Units 06:30 06:30 WBC 15.0 H (3.8-10.6) k/uL Hgb 9.7 L (11.4-16.0) gm/dL Hct 31.4 L (34.0-46.0) % MCH 24.8 L (25.0-35.0) pg MCHC 30.9 L (31.0-37.0) g/dL RDW 19.9 H (11.5-15.5) % Neutrophils # 13.7 H (1.3-7.7) k/uL Lymphocytes # 0.4 L (1.0-4.8) k/uL Sodium 136 L (137-145) mmol/L Creatinine 0.33 L (0.52-1.04) mg/dL AST 104 H (14-36) U/L ALT 81 H (9-52) U/L Alkaline Phosphatase 340 H (38-126) U/L Total Protein 5.6 L (6.3-8.2) g/dL Albumin 3.0 L (3.5-5.0) g/dL Microbiology - Last 24 Hours (Table) 12/17/16 22:14 Urine Culture - Preliminary Urine,Clean Catch Assessment and Plan Plan: Assessment and Plan Plan: 1. Metastatic disease to the bone and liver likely originating from the cecum. Underwent EGD and colonoscopy revealing a large ulcerated cecal mass involving the entire cecum and ileocecal valve. Multiple biopsies obtained. EGD showed a large hiatal hernia 2. Acute on chronic back pain involving the cervical and lumbar spine with evidence of pathologic compression fracture of L3 and diffuse metastatic disease to the spine. Patient has seen by spinal service and back brace has been ordered. They've also discussed possibility of kyphoplasty. Patient has been seen by radiation oncologist in regards to starting radiation treatment. 3. Metastatic liver disease with mild transaminitis 4. Essential hypertension: Blood pressure not well controlled we'll continue to monitor closely 5. Acute on chronic anemia most likely of chronic disease. Patient received 1 unit of blood transfusion. Would monitor CBC daily. MRI of the brain shows no evidence of brain metastasis 6. Medical debility: Continue with physical therapy. Colon cancer with liver and bone metastasis Surgical eval patient will need med port placed in anticipation of systemic chemotherapy with immunotherapy as an adjunct per oncology's recommendations treatment will start once patient finishes radiation treatment to the spine Will try to start radiation treatment now during patient's current hospitalization will keep keep patient here and not transfer to [facility] with vision change right eye The above dictated assessment and findings were discussed with dr jeffery Mir and the plan of care have been dictated as directed. Rama Mckeon nurse practitioner acting as a scribe for dr gil
[2016-12-19] MEDS: ESCITALOPRAM 10 MG TAB PO SCH (19:24)
[2016-12-19] MEDS: LISINOPRIL 5 MG TAB PO SCH (23:01)
[2016-12-20] MEDS: HYDROcodone/APAP 10-325MG 1 EACH TAB PO PRN ×3 (05:58→21:07)
[2016-12-20] MEDS: ALPRAZolam 0.5 MG TAB PO PRN ×2 (05:58→21:07)
[2016-12-20] MEDS: NYSTATIN 100,000 UNIT/ML SUSP 500,000 UNIT/5 ML CUP PO SCH ×5 (06:26→21:01)
[2016-12-20 07:41] LABS: Anisocytosis Moderate; Basophils % (A) 0 %; CH 24.4; CHCM 29.6; Eosinophils % (A) 0 %; HCT 29.4 % (34.0-46.0); HDW 3.74; HGB 8.8 gm/dL (11.4-16.0); Hypochromasia Marked; Luc # (Auto) 0.15; Luc % (Auto) 1; Lymphocytes # (A) 0.4 k/uL (1.0-4.8); Lymphocytes % (A) 3 %; MCH 24.5 pg (25.0-35.0); MCHC 29.9 g/dL (31.0-37.0); MCV 81.8 fL (80.0-100.0); Mean Platelet Volume 7.5; Microcytosis Slight; Monocytes # (A) 0.8 k/uL (0-1.0); Monocytes % (A) 6 %; Neutrophils # (A) 11.8 k/uL (1.3-7.7); Neutrophils % (A) 90 %; Poikilocytosis Slight; RBC 3.59 m/uL (3.80-5.40); WBC 13.1 k/uL (3.8-10.6); WBC (Perox) 13.57
[2016-12-20 07:51] LABS: ALT 77 U/L (9-52); AST 93 U/L (14-36); Alkaline Phosphatase 319 U/L (38-126); Anion Gap 7 mmol/L; Blood Urea Nitrogen 16 mg/dL (7-17); Carbon Dioxide 31 mmol/L (22-30); Chloride 97 mmol/L (98-107); Glucose 86 mg/dL (74-99); Non-African American GFR(MDRD) >60 (>60 ml/min/1.73 sqM); Potassium 4.2 mmol/L (3.5-5.1); Sodium 135 mmol/L (137-145); Total Bilirubin 0.5 mg/dL (0.2-1.3); Total Protein 5.4 g/dL (6.3-8.2)
--- NOTE | 2016-12-20 08:06 | P.PN ---
Subjective 71-year-old female being seen and evaluated this morning sitting up taking a diet. Patient is teary-eyed states "today is Father's Day saw last night my daughter's brought him up of very upsetting for him to see me. Nursing reports that the case managers yesterday indicated waiting for preauthorization for the patient to go to inpatient rehab pending insurance approval if approved patient could be transferred tomorrow to [facility] rehab dr jasper medina. Chief complaint this morning is constipation issues and states had small bowel movement last night states pain medication is effective for pain control Objective - Vital Signs Vital signs: Vital Signs Temp 97.6 F 12/20/16 07:00 Pulse 68 12/20/16 07:00 Resp 16 12/20/16 07:00 BP 179/86 12/20/16 07:00 Pulse Ox 97 12/20/16 07:00 Intake & Output 12/19/16 12/20/16 12/20/16 18:59 06:59 18:59 Intake Total 600 1240 Balance 600 1240 Intake: IV 1000 Sodium Chloride 0.9% 1, 1000 000 ml @ 100 mls/hr IV . Q10H [facility] Rx#:[id number] Oral 600 240 Other: Voiding Method Bedpan Bedpan # Voids 3 5 - Exam Physical exam 71-year-old female sitting up in bed taking a diet talkative pleasant oriented 3 Lungs essentially clear adequate air movement on room air Heart S1-S2 audible and regular denying chest pain Abdomen soft nontender reports no nausea vomiting no difficulty in urinating no stool nondistended bowel tones present Extremities Venodyne's on to the bilateral lower extremities no edema noted - Labs CBC & Chem 7: 12/20/16 07:19 12/20/16 07:19 Labs: Abnormal Lab Results - Last 24 Hours (Table) 12/20/16 12/20/16 Range/Units 07:19 07:19 WBC 13.1 H (3.8-10.6) k/uL RBC 3.59 L (3.80-5.40) m/uL Hgb 8.8 L (11.4-16.0) gm/dL Hct 29.4 L (34.0-46.0) % MCH 24.5 L (25.0-35.0) pg MCHC 29.9 L (31.0-37.0) g/dL RDW 20.0 H (11.5-15.5) % Neutrophils # 11.8 H (1.3-7.7) k/uL Lymphocytes # 0.4 L (1.0-4.8) k/uL Sodium 135 L (137-145) mmol/L Chloride 97 L (98-107) mmol/L Carbon Dioxide 31 H (22-30) mmol/L Creatinine 0.35 L (0.52-1.04) mg/dL AST 93 H (14-36) U/L ALT 77 H (9-52) U/L Alkaline Phosphatase 319 H (38-126) U/L Total Protein 5.4 L (6.3-8.2) g/dL Albumin 2.8 L (3.5-5.0) g/dL Microbiology - Last 24 Hours (Table) 12/17/16 22:14 Urine Culture - Preliminary Urine,Clean Catch Gram Neg Bacilli Assessment and Plan Plan: Assessment and Plan Plan: 1. Metastatic disease to the bone and liver likely originating from the cecum. Underwent EGD and colonoscopy revealing a large ulcerated cecal mass involving the entire cecum and ileocecal valve. Multiple biopsies obtained. EGD showed a large hiatal hernia 2. Acute on chronic back pain involving the cervical and lumbar spine with evidence of pathologic compression fracture of L3 and diffuse metastatic disease to the spine. Patient has seen by spinal service and back brace has been ordered. They've also discussed possibility of kyphoplasty. Patient has been seen by radiation oncologist in regards to starting radiation treatment. 3. Metastatic liver disease with mild transaminitis 4. Essential hypertension: Blood pressure not well controlled we'll continue to monitor closely 5. Acute on chronic anemia most likely of chronic disease. Patient received 1 unit of blood transfusion. Would monitor CBC daily. MRI of the brain shows no evidence of brain metastasis 6. Medical debility: Continue with physical therapy. Colon cancer with liver and bone metastasis Surgical eval patient will need med port placed in anticipation of systemic chemotherapy with immunotherapy as an adjunct per oncology's recommendations treatment will start once patient finishes radiation treatment to the spine Will try to start radiation treatment now during patient's current hospitalization will keep keep patient here and not transfer to [facility] Headache with vision change right eye MRI of the brain done on the shows no suspicious enhancing lesions to suggest metastatic disease to the brain Chronic constipation suspect opiate-induced The above dictated assessment and findings were discussed with dr gil Impression and the plan of care have been dictated as directed. Rama Mckeon nurse practitioner acting as a scribe for dr gil
[2016-12-20] MEDS: POLYETHYLENE GLYCOL 3350 17 GM POWD.PACK PO SCH (09:06)
[2016-12-20] MEDS: NADOLOL 20 MG TAB PO SCH (09:07)
[2016-12-20] MEDS: DEXAMETHASONE 4 MG TAB PO SCH ×3 (09:07→21:01)
[2016-12-20] MEDS: MORPHINE SULFATE ER 15 MG TABLET PO SCH ×2 (09:07→21:01)
[2016-12-20] MEDS: GABAPENTIN 100 MG CAP PO SCH ×3 (09:07→21:01)
[2016-12-20] MEDS: DOCUSATE 100 MG CAP PO SCH ×2 (09:07→21:01)
[2016-12-20] MEDS: PANTOPRAZOLE 40 MG TABLET PO SCH (09:08)
[2016-12-20] MEDS: SODIUM CHLORIDE 0.9% 1,000 ML IV SCH ×2 (10:45→17:29)
[2016-12-20] MEDS: LISINOPRIL 5 MG TAB PO SCH (21:01)
[2016-12-20] MEDS: ESCITALOPRAM 10 MG TAB PO SCH (21:01)
[2016-12-21] MEDS: SODIUM CHLORIDE 0.9% 1,000 ML IV SCH (06:06)
[2016-12-21 07:47] LABS: Anion Gap 6 mmol/L; Carbon Dioxide 29 mmol/L (22-30); Chloride 97 mmol/L (98-107); Glucose 102 mg/dL (74-99); Non-African American GFR(MDRD) >60 (>60 ml/min/1.73 sqM); Sodium 132 mmol/L (137-145); Total Bilirubin 0.6 mg/dL (0.2-1.3); Total Protein 5.6 g/dL (6.3-8.2)
[2016-12-21 08:05] LABS: ALT 98 U/L (9-52); AST 147 U/L (14-36); Blood Urea Nitrogen 19 mg/dL (7-17); Potassium 4.7 mmol/L (3.5-5.1)
[2016-12-21 08:06] LABS: Alkaline Phosphatase 309 U/L (38-126)
[2016-12-21] MEDS: HYDROcodone/APAP 10-325MG 1 EACH TAB PO PRN ×2 (08:11→21:45)
[2016-12-21] MEDS: NADOLOL 20 MG TAB PO SCH (08:12)
[2016-12-21] MEDS: DEXAMETHASONE 4 MG TAB PO SCH ×3 (08:12→21:46)
[2016-12-21] MEDS: GABAPENTIN 100 MG CAP PO SCH ×3 (08:12→21:46)
[2016-12-21] MEDS: PANTOPRAZOLE 40 MG TABLET PO SCH (08:16)
[2016-12-21] MEDS: MORPHINE SULFATE ER 15 MG TABLET PO SCH ×2 (08:16→21:45)
[2016-12-21] MEDS: ALPRAZolam 0.5 MG TAB PO PRN ×2 (08:16→21:45)
[2016-12-21] MEDS: POLYETHYLENE GLYCOL 3350 17 GM POWD.PACK PO SCH (08:17)
[2016-12-21] MEDS: NYSTATIN 100,000 UNIT/ML SUSP 500,000 UNIT/5 ML CUP PO SCH ×4 (08:17→21:46)
[2016-12-21] MEDS: DOCUSATE 100 MG CAP PO SCH ×2 (08:17→21:46)
[2016-12-21 10:17] LABS: Anisocytosis Moderate; Basophils % (A) 0 %; CH 24.6; CHCM 29.3; Eosinophils % (A) 0 %; HCT 30.9 % (34.0-46.0); HDW 3.53; HGB 9.5 gm/dL (11.4-16.0); Hypochromasia Marked; Luc # (Auto) 0.16; Luc % (Auto) 1; Lymphocytes # (A) 0.4 k/uL (1.0-4.8); Lymphocytes % (A) 2 %; MCH 25.7 pg (25.0-35.0); MCHC 30.7 g/dL (31.0-37.0); MCV 83.8 fL (80.0-100.0); Mean Platelet Volume 7.8; Microcytosis Slight; Monocytes # (A) 1.4 k/uL (0-1.0); Monocytes % (A) 8 %; Neutrophils # (A) 16.2 k/uL (1.3-7.7); Neutrophils % (A) 89 %; Poikilocytosis Slight; RBC 3.69 m/uL (3.80-5.40); RDW 20.4 % (11.5-15.5); WBC 18.2 k/uL (3.8-10.6); WBC (Perox) 16.72
[2016-12-21 11:02] LABS: Manual Review Performed
[2016-12-21 11:03] LABS: Polychromasia Present
[2016-12-21 11:41] VITALS: BMI 36.9
--- NOTE | 2016-12-21 12:43 | P.PN ---
Subjective Patient's IV was pulled out this morning by accident. We will currently keep IV out. Her insurance denied her transfer to [facility]. It appears that patient has not been able to tolerate physical therapy over the weekend. At this time we'll try to start radiation treatment during this hospitalization. Pain is controlled. Denies any chest pain or shortness of breath. Her burning with urination has not stopped. She reports having regular bowel Objective - Vital Signs Vital signs: Vital Signs Temp 97.9 F 12/21/16 07:00 Pulse 77 12/21/16 08:00 Resp 16 12/21/16 08:00 BP 148/99 12/21/16 07:00 Pulse Ox 96 12/21/16 07:00 Intake & Output 12/20/16 12/21/16 12/21/16 18:59 06:59 18:59 Intake Total 500 580 Output Total 400 Balance 500 580 -400 Weight 97.7 kg Intake: Oral 500 580 Output: Urine 400 Other: Voiding Method Bedpan Bedpan Bedpan # Voids 3 1 1 - Exam Head normocephalic Neck supple Lungs clear to auscultation bilaterally no wheezing or crackles Heart regular rate and rhythm S1-S2, no rub or gallop Abdomen is soft nontender nondistended positive bowel sounds no hepatosplenomegaly Extremities no edema Neuro alert and orientated to 3 - Labs CBC & Chem 7: 12/21/16 06:57 12/21/16 06:57 Labs: Abnormal Lab Results - Last 24 Hours (Table) 12/21/16 12/21/16 Range/Units 06:57 06:57 WBC 18.2 H (3.8-10.6) k/uL RBC 3.69 L (3.80-5.40) m/uL Hgb 9.5 L (11.4-16.0) gm/dL Hct 30.9 L (34.0-46.0) % MCHC 30.7 L (31.0-37.0) g/dL RDW 20.4 H (11.5-15.5) % Neutrophils # 16.2 H (1.3-7.7) k/uL Lymphocytes # 0.4 L (1.0-4.8) k/uL Monocytes # 1.4 H (0-1.0) k/uL Sodium 132 L (137-145) mmol/L Chloride 97 L (98-107) mmol/L BUN 19 H (7-17) mg/dL Creatinine 0.28 L (0.52-1.04) mg/dL Glucose 102 H (74-99) mg/dL AST 147 H (14-36) U/L ALT 98 H (9-52) U/L Alkaline Phosphatase 309 H (38-126) U/L Total Protein 5.6 L (6.3-8.2) g/dL Albumin 2.9 L (3.5-5.0) g/dL Microbiology - Last 24 Hours (Table) 12/17/16 22:14 Urine Culture - Final Urine,Clean Catch Escherichia coli Assessment and Plan Plan: 1. 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 Multiple biopsies obtained revealing adenocarcinoma. EGD showed a large hiatal hernia. Liver biopsy positive for adenocarcinoma. Oncology is following the plan is to start chemotherapy and immunotherapy adjuncts after radiation treatment. Discussed with Dr. Tubbs he is recommending a taper of dexamethasone over 2 weeks when discharged. Evaluated by surgical service they'll be placing a port in the near future 2. Acute on chronic back pain involving the cervical and lumbar spine with evidence of pathologic compression fracture of L3 and diffuse metastatic disease to the spine. Patient status post kyphoplasty to L3. Pain tolerable. Complaining of numbness in the lower legs. Was started on Neurontin. Case discussed with spinal surgery. Patient is stable for discharge from their standpoint. Patient has seen by spinal service and back brace has been ordered. 3. Metastatic liver disease with mild transaminitis 4. Essential hypertension: Blood pressure not well controlled we'll continue to monitor closely. Add lisinopril 5 mg at bedtime 5. Acute on chronic anemia most likely of chronic disease. Patient received 1 unit of blood transfusion. Would monitor CBC daily. 6. Medical debility: Continue physical therapy 7. Hyponatremia: Improved. Sodium 132. We'll repeat labs in the morning. Will monitor without IV fluids. 8. Neck pain with evidence of a lytic lesion in the right transverse process of C2. Continue with neck brace. Continue with pain medication and symptomatically treatment 9. Acute lower GI Bleed secondary to adenocarcinoma of the cecum. did require a transfer to the ICU. It has currently on oncology floor. No further active bleeding. Hemoglobin stable at 9.3 10. UTI with E. coli. Discontinue Rocephin and place patient on Cipro 11. Headache with vision changes in the right eye. No evidence of metastatic disease on MRI of the brain Patient's insurance has denied rehab at [facility]. At this time will start radiation treatment. Case discussed with . He is recommending 2 doses of radiation treatment and then possibly transferred to subacute rehab I performed an examination of the patient and discussed their management with the physician Mechanical Oxidizer. I have reviewed the Physician Mechanical Oxidizer's notes and agree with the documented findings and plan of care
--- NOTE | 2016-12-21 13:11 | P.PN ---
Subjective Principal diagnosis: Metastatic colorectal cancer. The patient is been reevaluated today for radiotherapy. It was previously believed, the patient would be going to [facility] inpatient rehabilitation, and would undergo radiotherapy at that facility. Unfortunately, the patient may be too debilitated to participate in inpatient rehabilitation at this time. When asked about her pain today, the patient notes that her pain is most severe in the right neck. She reports it radiates to the back of her skull, and is approximately 7 out of 10 at this time. Review of her CT scan shows a lytic metastasis at this site. The patient does report that the lumbar back pain, is better controlled at this time. She notes that this is approximately 3 out of 10 currently. She notes that she still has difficulty lifting her legs. Objective - Vital Signs Vital signs: Vital Signs Temp 97.9 F 12/21/16 07:00 Pulse 77 12/21/16 08:00 Resp 16 12/21/16 08:00 BP 148/99 12/21/16 07:00 Pulse Ox 96 12/21/16 07:00 Intake & Output 12/20/16 12/21/16 12/21/16 18:59 06:59 18:59 Intake Total 500 580 Output Total 400 Balance 500 580 -400 Weight 97.7 kg Intake: Oral 500 580 Output: Urine 400 Other: Voiding Method Bedpan Bedpan Bedpan # Voids 3 1 1 - Constitutional General appearance: Present: no acute distress - EENT Eyes: Present: EOMI, PERRLA - Neck Neck: Present: normal ROM. Absent: lymphadenopathy - Respiratory Respiratory: bilateral: CTA - Cardiovascular Rhythm: regular - Gastrointestinal General gastrointestinal: Present: normal bowel sounds. Absent: tenderness - Neurologic Neurologic: Present: CNII-XII intact - Musculoskeletal Musculoskeletal Comment(s): 4/5 strength bilateral upper extremities. Sensation intact in lower extremities. 3/5 strength with foot flexion/extension, 2/5 hip flexion bilaterally. - Psychiatric Psychiatric: Present: A&O x's 3 - Labs CBC & Chem 7: 12/21/16 06:57 12/21/16 06:57 Labs: Abnormal Lab Results - Last 24 Hours (Table) 12/21/16 12/21/16 Range/Units 06:57 06:57 WBC 18.2 H (3.8-10.6) k/uL RBC 3.69 L (3.80-5.40) m/uL Hgb 9.5 L (11.4-16.0) gm/dL Hct 30.9 L (34.0-46.0) % MCHC 30.7 L (31.0-37.0) g/dL RDW 20.4 H (11.5-15.5) % Neutrophils # 16.2 H (1.3-7.7) k/uL Lymphocytes # 0.4 L (1.0-4.8) k/uL Monocytes # 1.4 H (0-1.0) k/uL Sodium 132 L (137-145) mmol/L Chloride 97 L (98-107) mmol/L BUN 19 H (7-17) mg/dL Creatinine 0.28 L (0.52-1.04) mg/dL Glucose 102 H (74-99) mg/dL AST 147 H (14-36) U/L ALT 98 H (9-52) U/L Alkaline Phosphatase 309 H (38-126) U/L Total Protein 5.6 L (6.3-8.2) g/dL Albumin 2.9 L (3.5-5.0) g/dL Microbiology - Last 24 Hours (Table) 12/17/16 22:14 Urine Culture - Final Urine,Clean Catch Escherichia coli Assessment and Plan (1) Bone metastases Status: Acute (2) Colorectal cancer, stage IV Status: Acute (3) L3 vertebral fracture Status: Acute Plan: 1. We discussed initiating a single course of palliative radiotherapy with the patient today. Considering she has had kyphoplasty of the L3 lesion, and that this is not as bothersome as the neck pain, I recommended the patient undergo a single fraction of palliative radiotherapy to the C2 lesion. The patient will undergo CT simulation for treatment planning. Radiotherapy will be delivered and a single fraction, and the patient is expected to have only minimal side effects including fatigue, as well as possible dysphagia/odynophagia. The patient will likely require further radiotherapy to the lumbar spine in the near future. Considering her imminent discharge, we have elected to focus on the area causing her the greatest discomfort at this time. Time with Patient: Greater than 30
[2016-12-21] MEDS: CIPROFLOXACIN HCL 500 MG TAB PO SCH ×2 (14:01→21:46)
--- NOTE | 2016-12-21 16:15 | XR ---
EXAMINATION TYPE: XR chest 1V DATE OF EXAM: 12/21/2016 COMPARISON: NONE HISTORY: ECF placement TECHNIQUE: Single frontal view of the chest is obtained. FINDINGS: A hiatal hernia noted. Patchy right perihilar infiltrate. Left lung clear. There is a pleu ral-based density or mass in the left upper lobe. CT chest recommended. No pleural effusion or pneumo thorax. Arthropathy of the shoulders noted. IMPRESSION: 1. Right upper lobe patchy area of infiltrate 2. Left upper lobe pleural-based density. Neoplasm in the differential correlate with CT scan.
[2016-12-21] MEDS: LISINOPRIL 5 MG TAB PO SCH (17:46)
[2016-12-21] MEDS: ESCITALOPRAM 10 MG TAB PO SCH (21:46)
[2016-12-22 08:09] LABS: Anisocytosis Moderate; Basophils % (A) 0 %; CH 24.9; CHCM 30.4; Eosinophils % (A) 0 %; HCT 30.5 % (34.0-46.0); HDW 3.75; HGB 9.3 gm/dL (11.4-16.0); Hypochromasia Marked; Luc # (Auto) 0.14; Luc % (Auto) 1; Lymphocytes # (A) 0.4 k/uL (1.0-4.8); Lymphocytes % (A) 3 %; MCH 24.8 pg (25.0-35.0); MCHC 30.4 g/dL (31.0-37.0); MCV 81.6 fL (80.0-100.0); Mean Platelet Volume 6.6; Microcytosis Slight; Monocytes # (A) 0.7 k/uL (0-1.0); Monocytes % (A) 5 %; Neutrophils # (A) 13.4 k/uL (1.3-7.7); Neutrophils % (A) 92 %; Poikilocytosis Slight; RBC 3.75 m/uL (3.80-5.40); RDW 20.3 % (11.5-15.5); WBC 14.7 k/uL (3.8-10.6); WBC (Perox) 15.16
[2016-12-22] MEDS: DOCUSATE 100 MG CAP PO SCH ×2 (08:25→21:14)
[2016-12-22] MEDS: CIPROFLOXACIN HCL 500 MG TAB PO SCH ×2 (08:25→21:13)
[2016-12-22] MEDS: DEXAMETHASONE 4 MG TAB PO SCH ×3 (08:25→21:13)
[2016-12-22] MEDS: GABAPENTIN 100 MG CAP PO SCH ×3 (08:25→21:13)
[2016-12-22] MEDS: PANTOPRAZOLE 40 MG TABLET PO SCH (08:25)
[2016-12-22] MEDS: POLYETHYLENE GLYCOL 3350 17 GM POWD.PACK PO SCH (08:26)
[2016-12-22] MEDS: NADOLOL 20 MG TAB PO SCH (08:26)
[2016-12-22] MEDS: NYSTATIN 100,000 UNIT/ML SUSP 500,000 UNIT/5 ML CUP PO SCH ×4 (08:26→21:13)
[2016-12-22 08:28] LABS: ALT 105 U/L (9-52); AST 147 U/L (14-36); Alkaline Phosphatase 368 U/L (38-126); Anion Gap 7 mmol/L; Blood Urea Nitrogen 18 mg/dL (7-17); Calcium 8.8 mg/dL (8.4-10.2); Carbon Dioxide 31 mmol/L (22-30); Chloride 95 mmol/L (98-107); Glucose 84 mg/dL (74-99); Non-African American GFR(MDRD) >60 (>60 ml/min/1.73 sqM); Sodium 133 mmol/L (137-145); Total Bilirubin 0.7 mg/dL (0.2-1.3); Total Protein 5.6 g/dL (6.3-8.2)
[2016-12-22] MEDS: MORPHINE SULFATE ER 15 MG TABLET PO SCH ×2 (08:28→21:14)
[2016-12-22] MEDS: HYDROcodone/APAP 10-325MG 1 EACH TAB PO PRN ×4 (08:28→23:33)
[2016-12-22 08:34] LABS: Potassium 4.5 mmol/L (3.5-5.1)
[2016-12-22] MEDS ORDERED: SODIUM FERRIC GLUCONAT-SUCROSE 125 MG in SODIUM CHLORIDE 0.9% 100 ML IVPB SCH (09:30)
--- NOTE | 2016-12-22 11:20 | P.PN ---
Subjective Principal diagnosis: L3 pathologic compression fracture deformity Patient is a very pleasant 71-year-old female who is seen and examined at bedside for follow-up evaluation for her acute L3 compression fracture deformity. She recently had a colonoscopy and upper GI scope. 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 She continues to be seen by oncology and medicine. Patient has remained in the hospital for approximately 26 days. After further discussion and evaluation, patient is planning to be discharged to rehabilitation today in [place], [place]. She will work through rehabilitation until she is able to regain her strength with plans to be discharged home. After discharge from rehabilitation, she will resume working through her radiation treatment. She has been able to have a few radiation treatments while here in the hospital. She is scheduled to undergo another radiation treatment today at approximately 1:30 prior to her discharge. She recently underwent L3 kyphoplasty with biopsy on 12/10/2016. She continues to have some improvement of her low back pain. She does continues to experience left lower extremity radiculopathy. She is known to have a spondylolisthesis at L4-5. She is experiencing pain that radiates from the left lateral lumbar spine, down the left posterior lateral thigh, over the left knee, and on anterior lower extremity. She is not complaining of any right lower extremity radiculopathy. She has been receiving some treatment for right-sided neck pain that seems be her biggest complaint currently. She does admit to some generalized tingling of the bilateral toes that goes up towards her calves. She states she was not previously diagnosed with diabetes that she is aware of. Today she is sitting comfortably in bed. She has been able to eat difficulty. She states following discharge, insurance will not approve for her transfer to our office at [facility] for further evaluation and treatment. She states she will be unable to have a follow-up appointment until she is discharged from the rehabilitation facility in [place], [place]. She states she is very happy to finally being discharged today. She states she has not been out of bed often and is looking forward to working through therapy. Objective - Vital Signs Vital signs: Vital Signs Temp 97.8 F 12/22/16 07:00 Pulse 73 12/22/16 07:00 Resp 18 12/22/16 07:00 BP 152/87 12/22/16 07:00 Pulse Ox 98 12/22/16 07:00 Intake & Output 12/21/16 12/22/16 12/22/16 18:59 06:59 18:59 Intake Total 120 1360 Output Total 400 Balance -280 1360 Weight 97.7 kg Intake: Oral 120 1360 Output: Urine 400 Other: Voiding Method Bedpan Bedpan # Voids 2 2 - Exam Physical Exam: Patient is awake, alert, and oriented 3 Vital signs stable Good chest excursion with deep inspiration and expiration No signs or symptoms of DVT; no calf pain Lower extremity strength is positive sustained throughout range of motion generally weaker Extensor hallucis longus, plantarflexion, and dorsiflexion positive sustained bilateral lower extremities Compression stockings and pneumatic cuffs not currently intact bilateral lower extremities Some generalized lower extremity swelling bilaterally without pitting edema Negative straight leg test bilaterally No pain with internal and external rotation of hips bilaterally - Labs CBC & Chem 7: 12/22/16 07:11 12/22/16 07:11 Labs: Abnormal Lab Results - Last 24 Hours (Table) 12/22/16 12/22/16 Range/Units 07:11 07:11 WBC 14.7 H (3.8-10.6) k/uL RBC 3.75 L (3.80-5.40) m/uL Hgb 9.3 L (11.4-16.0) gm/dL Hct 30.5 L (34.0-46.0) % MCH 24.8 L (25.0-35.0) pg MCHC 30.4 L (31.0-37.0) g/dL RDW 20.3 H (11.5-15.5) % Neutrophils # 13.4 H (1.3-7.7) k/uL Lymphocytes # 0.4 L (1.0-4.8) k/uL Sodium 133 L (137-145) mmol/L Chloride 95 L (98-107) mmol/L Carbon Dioxide 31 H (22-30) mmol/L BUN 18 H (7-17) mg/dL Creatinine 0.27 L (0.52-1.04) mg/dL AST 147 H (14-36) U/L ALT 105 H (9-52) U/L Alkaline Phosphatase 368 H (38-126) U/L Total Protein 5.6 L (6.3-8.2) g/dL Albumin 2.9 L (3.5-5.0) g/dL Microbiology - Last 24 Hours (Table) 12/17/16 22:14 Urine Culture - Final Urine,Clean Catch Escherichia coli Assessment and Plan (1) Liver masses Status: Acute (2) Spondylolisthesis, lumbar region Status: Acute (3) Lumbar spinal stenosis Status: Acute (4) Lumbar back pain with radiculopathy affecting left lower extremity Status: Acute (5) L3 vertebral fracture Status: Acute (6) Cecal cancer Status: Acute Plan: Pertinent studies: MRI of the lumbar spine with and without contrast: L3 pathologic compression fracture; some irregularities within the vertebral bodies throughout her lumbar spine with significant involvement of L3; L4-5 spondylolisthesis with spinal canal stenosis Assessment: Acute L3 pathologic compression fracture with no evidence of acute neurologic decline Status post L3 kyphoplasty with biopsy Multiple liver masses 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 On 12/10/2016, the patient underwent L3 kyphoplasty with biopsy. Following the surgical procedure she seems to have some improvement of her low back pain. She does continue to experience left lower extremity radiculopathy and numbness in the bilateral feet. She feels she has had some improvement of her symptoms since being started on Neurontin 100 mg 3 times a day. She'll be given a prescription for Neurontin 100 mg 3 times per day at discharge. We may plan to increase this dosage at her first follow-up appointment depending how she is tolerating this medicine. She is encouraged to try to get out of bed and increased mobility with the assistance of physical therapy. She may continue wearing her LSO brace while ambulating doing activities. We discussed from an orthopedic spine standpoint, patient is clear for discharge once cleared by medicine and oncology. 2. Hematology oncology is continuing to follow the patient; medicine to continue following the patient 3. Continue pain control 4. From orthopedic spine stand point, patient is clear for discharge; Following discharge, patient may follow-up with Richie Ramirez PA-C or Dr. Juan Martin at [facility] in approximately 2 weeks for further evaluation; She states she would be unable to keep this appointment due to insurance not covering her transfer from rehabilitation in [place], [place]. She'll plan to call the office to set up a follow-up appointment following her discharge from rehabilitation. 5. Patient has been discussed in detail with Dr. Juan Maritn and he agrees with this plan Time with Patient: Less than 30
--- NOTE | 2016-12-22 18:58 | P.PN ---
Subjective Patient reports having severe back pain radiating to lower extremities. She is scheduled to work with physical therapy today to evaluate patient if she is good for home with home care. Patient's family is arranging the home setting environment they're trying to work on making a ramp so patient can enter the house. Patient denies any chest pain or shortness breath. Denies any nausea or vomiting. She is now having regular bowel movements. Denies any further diarrhea. Denies difficulty urinating. Patient had an episode of profuse bleeding last night, A team were called and patient was transferred to intensive care unit red blood cell transfusion was initiated at this time patient is stable she has no further bleeding. Objective - Vital Signs Vital signs: Vital Signs Temp 98 F 12/22/16 15:00 Pulse 68 12/22/16 16:00 Resp 16 12/22/16 16:00 BP 111/71 12/22/16 15:00 Pulse Ox 97 12/22/16 15:00 Intake & Output 12/21/16 12/22/16 12/22/16 18:59 06:59 18:59 Intake Total 120 1360 Output Total 400 400 Balance -280 1360 -400 Weight 97.7 kg 97.7 kg Intake: Oral 120 1360 Output: Urine 400 400 Other: Voiding Method Bedpan Bedpan Bedpan # Voids 2 2 2 - Exam In general patient is alert and oriented 3 in no apparent distress HEENT head normocephalic and atraumatic Neck is supple no JVD no goiter no lymphadenopathy Chest exam reveals few scatterd rhonchi, no wheezing Cardiac exam reveals regular heart sounds no gallops no murmurs Abdomen is soft nontender no organomegaly Extremity exam reveals no edema no cyanosis or clubbing - Labs CBC & Chem 7: 12/22/16 07:11 12/22/16 07:11 Labs: Abnormal Lab Results - Last 24 Hours (Table) 12/22/16 12/22/16 Range/Units 07:11 07:11 WBC 14.7 H (3.8-10.6) k/uL RBC 3.75 L (3.80-5.40) m/uL Hgb 9.3 L (11.4-16.0) gm/dL Hct 30.5 L (34.0-46.0) % MCH 24.8 L (25.0-35.0) pg MCHC 30.4 L (31.0-37.0) g/dL RDW 20.3 H (11.5-15.5) % Neutrophils # 13.4 H (1.3-7.7) k/uL Lymphocytes # 0.4 L (1.0-4.8) k/uL Sodium 133 L (137-145) mmol/L Chloride 95 L (98-107) mmol/L Carbon Dioxide 31 H (22-30) mmol/L BUN 18 H (7-17) mg/dL Creatinine 0.27 L (0.52-1.04) mg/dL AST 147 H (14-36) U/L ALT 105 H (9-52) U/L Alkaline Phosphatase 368 H (38-126) U/L Total Protein 5.6 L (6.3-8.2) g/dL Albumin 2.9 L (3.5-5.0) g/dL Assessment and Plan Plan: 1. 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 Multiple biopsies obtained revealing adenocarcinoma. EGD showed a large hiatal hernia. Liver biopsy positive for adenocarcinoma. Currently patient is receiving radiation therapy, she will be transferred soon to [facility] for rehab 2. Acute on chronic back pain involving the cervical and lumbar spine with evidence of pathologic compression fracture of L3 and diffuse metastatic disease to the spine. Patient has seen by spinal service and back brace has been ordered. Awaiting radiation oncologists recommendations when to start radiation treatment. Patient will possibly require kyphoplasty for better pain control. She'll further evaluation with spinal surgery outpatient 3. Metastatic liver disease with mild transaminitis 4. Essential hypertension: Blood pressure not well controlled we'll continue to monitor closely 5. Acute on chronic anemia most likely of chronic disease. Patient received 1 unit of blood transfusion. Would monitor CBC daily. 6. Medical debility: Continue with physical therapy. Patient is to work with physical therapy today to assess if she can be discharged home with home care. At this time awaiting physical therapy recommendations. Patient's family is arranging equipment at home for patient. Awaiting radiation oncologist recommendations when to start radiation treatment. 7. Episode of profuse bleeding requiring transfer to intensive care unit and transfusion of red blood cells last night at this time patient is more stable will monitor closely 8. Patient was reevaluated by radiation oncology, and plan is to proceed with radiation therapy at this point 9. CODE STATUS will be changed to no code per patient request
[2016-12-22] MEDS: LISINOPRIL 5 MG TAB PO SCH (21:13)
[2016-12-22] MEDS: ALPRAZolam 0.5 MG TAB PO PRN (21:13)
[2016-12-22] MEDS: ESCITALOPRAM 10 MG TAB PO SCH (21:13)
[2016-12-23 01:28] VITALS: RESP 16
[2016-12-23 07:58] LABS: ALT 106 U/L (9-52); AST 126 U/L (14-36); Alkaline Phosphatase 373 U/L (38-126); Anion Gap 5 mmol/L; Blood Urea Nitrogen 21 mg/dL (7-17); Calcium 9.1 mg/dL (8.4-10.2); Carbon Dioxide 31 mmol/L (22-30); Chloride 98 mmol/L (98-107); Glucose 91 mg/dL (74-99); Non-African American GFR(MDRD) >60 (>60 ml/min/1.73 sqM); Potassium 4.4 mmol/L (3.5-5.1); Sodium 134 mmol/L (137-145); Total Bilirubin 0.6 mg/dL (0.2-1.3); Total Protein 5.3 g/dL (6.3-8.2)
[2016-12-23 08:07] LABS: Anisocytosis Moderate; Basophils % (A) 0 %; CH 24.9; CHCM 30.4; Eosinophils % (A) 0 %; HCT 29.6 % (34.0-46.0); Hypochromasia Marked; Luc # (Auto) 0.15; Luc % (Auto) 1; Lymphocytes # (A) 0.3 k/uL (1.0-4.8); Lymphocytes % (A) 2 %; MCH 24.8 pg (25.0-35.0); MCHC 30.3 g/dL (31.0-37.0); MCV 81.7 fL (80.0-100.0); Mean Platelet Volume 7.1; Microcytosis Slight; Monocytes # (A) 0.7 k/uL (0-1.0); Monocytes % (A) 5 %; Neutrophils # (A) 12.9 k/uL (1.3-7.7); Neutrophils % (A) 92 %; Poikilocytosis Slight; RBC 3.62 m/uL (3.80-5.40); RDW 20.1 % (11.5-15.5); WBC 14.1 k/uL (3.8-10.6); WBC (Perox) 14.65
[2016-12-23] MEDS: DEXAMETHASONE 4 MG TAB PO SCH ×2 (09:01→15:45)
[2016-12-23] MEDS: CIPROFLOXACIN HCL 500 MG TAB PO SCH (09:01)
[2016-12-23] MEDS: PANTOPRAZOLE 40 MG TABLET PO SCH (09:02)
[2016-12-23] MEDS: DOCUSATE 100 MG CAP PO SCH (09:02)
[2016-12-23] MEDS: GABAPENTIN 100 MG CAP PO SCH ×2 (09:02→15:45)
[2016-12-23] MEDS: NYSTATIN 100,000 UNIT/ML SUSP 500,000 UNIT/5 ML CUP PO SCH ×2 (09:03→15:45)
[2016-12-23] MEDS: NADOLOL 20 MG TAB PO SCH (09:03)
[2016-12-23] MEDS: HYDROcodone/APAP 10-325MG 1 EACH TAB PO PRN (09:08)
[2016-12-23] MEDS: MORPHINE SULFATE ER 15 MG TABLET PO SCH (09:09)
[2016-12-23] MEDS: ALPRAZolam 0.5 MG TAB PO PRN (11:52)
[2016-12-23] MEDS: POLYETHYLENE GLYCOL 3350 17 GM POWD.PACK PO SCH (15:45)
[2016-12-23] MEDS: LISINOPRIL 5 MG TAB PO SCH (15:45)
--- NOTE | 2016-12-23 16:15 | P.DS ---
Providers Date of admission: 11/26/16 16:14 Expected date of discharge: 12/23/16 Attending physician: George Adrian Consults: 11/26/16 16:14 Consult Physician Routine Consulting Provider: Faustino Tubbs Consult Reason/Comments: anemia, pathologic fracture Do you want consulting provider notified?: Yes 12/01/16 18:58 Consult Physician Routine Consulting Provider: Jose David Benitez Consult Reason/Comments: Bone metastases, cancer related pain Do you want consulting provider notified?: Yes 12/04/16 23:42 Consult Physician Routine Consulting Provider: Al Vargas Consult Reason/Comments: Port placement Do you want consulting provider notified?: Yes 12/11/16 09:37 Consult Physician Routine Consulting Provider: Gregory Arango Consult Reason/Comments: inpatient rehab Do you want consulting provider notified?: Yes 12/14/16 20:31 Consult Physician Routine Consulting Provider: Lucila Malagon Consult Reason/Comments: ICU mgmt/ GI Bleed Do you want consulting provider notified?: Yes Primary care physician: Anthony Gutierrez [facility] Course: Diagnosis on discharge: 1. 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 Multiple biopsies obtained revealing adenocarcinoma. EGD showed a large hiatal hernia. Liver biopsy positive for adenocarcinoma. Currently patient is receiving radiation therapy, she will be transferred soon to [facility] for rehab 2. Acute on chronic back pain involving the cervical and lumbar spine with evidence of pathologic compression fracture of L3 and diffuse metastatic disease to the spine. Patient has seen by spinal service and back brace has been ordered. Awaiting radiation oncologists recommendations when to start radiation treatment. Patient will possibly require kyphoplasty for better pain control. She'll further evaluation with spinal surgery outpatient 3. Metastatic liver disease with mild transaminitis 4. Essential hypertension: Blood pressure not well controlled we'll continue to monitor closely 5. Acute on chronic anemia most likely of chronic disease. Patient received 1 unit of blood transfusion. Would monitor CBC daily. 6. Medical debility: Continue with physical therapy. Patient is to work with physical therapy today to assess if she can be discharged home with home care. At this time awaiting physical therapy recommendations. Patient's family is arranging equipment at home for patient. Awaiting radiation oncologist recommendations when to start radiation treatment. 7. Episode of profuse bleeding requiring transfer to intensive care unit and transfusion of red blood cells last night at this time patient is more stable will monitor closely 8. Patient was reevaluated by radiation oncology, and underwent radiation therapy during this admission. 9. CODE STATUS will be changed to no code per patient request Hospital course: 71-year-old female patient of Dr. Rodriguez with a past history of childhood appendectomy, 2, hypertension and iron deficiency anemia. Presented to the ER a week ago with generalized weakness neck pain with recent fall. CT chest abdomen and pelvis reported extensive abnormal density in the liver consistent with metastatic disease status post liver biopsy yesterday pathology pending. Mild compression fracture of L3 probably pathologic and tumor should be considered. Possible mass lesion involving the ileocecal valve and tip of the cecum. Possible mass lesion with wall thickening involving the posterior gastric fundus within the hiatal hernia. No history of EGD colonoscopy. Denies overt GI bleeding such as hematemesis hematochezia or melena. Received red blood cell transfusion during this admission She is unable to walk very well secondary to lower back pain. Patient received radiation therapy during this admission She was transferred to [facility] for rehab Patient Condition at Discharge: Stable Plan - Discharge Summary New Discharge Prescriptions: New Gabapentin [Neurontin] 100 mg PO TID #45 cap Docusate [Colace] 100 mg PO BID #60 cap Escitalopram [Lexapro] 10 mg PO HS #30 tab HYDROcodone/APAP 10-325MG [Oneida 10-325] 1 each PO Q4H PRN #60 tab PRN Reason: Pain Lisinopril [Zestril] 5 mg PO HS #30 tab Dexamethasone 4 mg PO DIRECTED #42 tablet Ciprofloxacin HCl [Cipro] 500 mg PO Q12HR #14 tablet Morphine Sulfate ER [Ms Contin 15Mg] 15 mg PO Q12HR #30 tab Continue Nadolol [Corgard] 40 mg PO DAILY Omeprazole [PriLOSEC] 20 mg PO DAILY ALPRAZolam [Xanax] 0.5 mg PO TID PRN #90 PRN Reason: Anxiety Discontinued Triamterene/Hydrochlorothiazid [Dyazide 37.5-25 Capsule] 1 cap PO DAILY Ibuprofen [Motrin] 800 mg PO TID PRN PRN Reason: Pain Discharge Medication List Nadolol [Corgard] 40 mg PO DAILY 11/26/16 [History] Omeprazole [PriLOSEC] 20 mg PO DAILY 11/26/16 [History] ALPRAZolam [Xanax] 0.5 mg PO TID PRN #90 12/14/16 [Rx] Dexamethasone 4 mg PO DIRECTED #42 tablet 12/14/16 [Rx] Docusate [Colace] 100 mg PO BID #60 cap 12/14/16 [Rx] Escitalopram [Lexapro] 10 mg PO HS #30 tab 12/14/16 [Rx] Gabapentin [Neurontin] 100 mg PO TID #45 cap 12/14/16 [Rx] HYDROcodone/APAP 10-325MG [Oneida 10-325] 1 each PO Q4H PRN #60 tab 12/14/16 [Rx] Lisinopril [Zestril] 5 mg PO HS #30 tab 12/14/16 [Rx] Ciprofloxacin HCl [Cipro] 500 mg PO Q12HR #14 tablet 12/18/16 [Rx] Morphine Sulfate ER [Ms Contin 15Mg] 15 mg PO Q12HR #30 tab 12/18/16 [Rx] Follow up Appointment(s)/Referral(s): Faustino Tubbs MD [STAFF PHYSICIAN] - 01/08/17 9:15 am (PLease make the appointment with Grisel) Richie Ramirez PAC [PHYSICIAN OPERATOR/ASSISTANT FOREMAN] - 2 Weeks (Patient may follow-up with Richie Ramirez PA-C or Dr. Juan Martin at [facility] in 2-3 weeks following discharge. ) Anthony Rodriguez MD [Primary Care Provider] - 1 Week [facility] Visiting Nurse, [NON-STAFF] - 1 Week Activity/Diet/Wound Care/Special Instructions: 1. Patient may wear LSO brace for comfort and support while sitting upright at greater than 45, while working with therapy, and while ambulating; patient does not have to wear the brace while lying in bed or bathing 2. Patient should avoid excessive bending, twisting, and lifting; no lifting greater than 10 pounds Discharge diet cardiac Patient will need radiation treatment arranged by Dr. Jiang at [facility] Transfer patient to [facility] Discharge Disposition: OTHER INSTITUTION NOT DEFINED
[2016-12-23 16:21] VITALS: BP 111/66; PULSE 62; TEMP 97.1
== END 2016-12-23 18:35 | DRG 478 ==
LOC: EC 11:26 → 5ONC 16:14 → 6ICU 12-14 19:04 → 5ONC 12-16 13:12
PROVIDERS: ADMIT Internal Medicine; ATTEND Internal Medicine
PROC: 30233N1 Transfusion of Nonautologous Red Blood Cells into Peripheral Vein, Percutaneous Approach (ICD-10-PCS; 2016-11-26)
PROC: 0FB23ZX Excision of Left Lobe Liver, Percutaneous Approach, Diagnostic (ICD-10-PCS; 2016-12-01)
PROC: 0DJ08ZZ Inspection of Upper Intestinal Tract, Via Natural or Artificial Opening Endoscopic (ICD-10-PCS; 2016-12-03)
PROC: 0DBH8ZX Excision of Cecum, Via Natural or Artificial Opening Endoscopic, Diagnostic (ICD-10-PCS; 2016-12-03)
PROC: 0QS03ZZ Reposition Lumbar Vertebra, Percutaneous Approach (ICD-10-PCS; 2016-12-10)
PROC: 0QU03JZ Supplement Lumbar Vertebra with Synthetic Substitute, Percutaneous Approach (ICD-10-PCS; 2016-12-10)
PROC: 0QB03ZX Excision of Lumbar Vertebra, Percutaneous Approach, Diagnostic (ICD-10-PCS; principal; 2016-12-10 12:30)
DX: M84.58XA Pathological fracture in neoplastic disease, other specified site, initial encounter for fracture (principal); C18.0 Malignant neoplasm of cecum; C79.51 Secondary malignant neoplasm of bone; C78.7 Secondary malignant neoplasm of liver and intrahepatic bile duct; C79.31 Secondary malignant neoplasm of brain; K92.2 Gastrointestinal hemorrhage, unspecified; N39.0 Urinary tract infection, site not specified; E86.0 Dehydration; E87.1 Hypo-osmolality and hyponatremia; D62 Acute posthemorrhagic anemia; G62.9 Polyneuropathy, unspecified; D50.0 Iron deficiency anemia secondary to blood loss (chronic); D63.8 Anemia in other chronic diseases classified elsewhere; Z66 Do not resuscitate; Z51.5 Encounter for palliative care; G89.3 Neoplasm related pain (acute) (chronic); T40.605A Adverse effect of unspecified narcotics, initial encounter; K59.03 Drug induced constipation; B96.20 Unspecified Escherichia coli [E. coli] as the cause of diseases classified elsewhere; K44.9 Diaphragmatic hernia without obstruction or gangrene; K56.41 Fecal impaction; I10 Essential (primary) hypertension; N39.3 Stress incontinence (female) (male); M19.91 Primary osteoarthritis, unspecified site; M43.16 Spondylolisthesis, lumbar region; M48.06 Spinal stenosis, lumbar region; M54.16 Radiculopathy, lumbar region; F32.9 Major depressive disorder, single episode, unspecified; R26.2 Difficulty in walking, not elsewhere classified; Z74.01 Bed confinement status; Z90.49 Acquired absence of other specified parts of digestive tract; Z91.81 History of falling; Z79.899 Other long term (current) drug therapy; Z88.8 Allergy status to other drugs, medicaments and biological substances
CPT/HCPCS: 36415; 36430; 43235; 45380; 47000; 70450; 70553; 71010; 71260; 72100; 72125; 72131; 72158; 74020; 74177; 76942; 77412; 80048; 80053; 81001; 81003; 82150; 82272; 82607; 82728; 82747; 83540; 83550; 83690; 83735; 84100; 85025; 85027; 85610; 85730; 86850; 86900; 86901; 86920; 87077; 87086; 87186; 88305; 88307; 88311; 88341; 88342; 93005; 96361; 96374; 96375; 96376; 99285